=== PATIENT | male | born 1955 | race Two or more races ===

== ENCOUNTER 2018-11-11 16:30 | Emergency (ER) | payer MEDICARE, OTHER ==
[~2018-11-11] VITALS: Ht 170.2 cm; Wt 87.1 kg
--- NOTE | 2018-11-11 16:38 | NUR ---
ED Nurse Note: Pt [facility] from [facility] due to abnormal labs that were taken 2 days ago. According to EMS, BUN was abnormal. Pt is A + O x2. SELDOVIA. Hx of HTN, DM, carcinoma on the left arm. Pt denies having pain. Vincentian speaking only.
[2018-11-11 16:39] VITALS: BP 182/59
--- NOTE | 2018-11-11 16:44 | Emergency Room Report ---
History of Present Illness General Chief Complaint: Abnormal Labs Source: Patient Present Illness HPI Patient is a 62-year-old male brought in by from alf. BLS ambulance. Patient was reportedly sent in for increased BUN. Patient a prior history of end-stage renal disease and is normally dialyzed Monday and Monday.Patient's recent laboratory testing showed some improvement from prior. Patient had reportedly had dialysis yesterday. Patient has some prior history of end-stage renal disease and has a left upper extremity vascular access. Allergies: Coded Allergies: No Known Allergies (Unverified , 11/11/18) Patient History Reviewed Nursing Documentation: PMH: Agreed; PSxH: Agreed Review of Systems All Other Systems: negative except mentioned in HPI Physical Exam Vital Signs Date Time Temp Pulse Resp B/P (MAP) Pulse Ox O2 Delivery O2 Flow Rate FiO2 11/11/18 16:32 98.1 60 16 96 Room Air Sp02 EP Interpretation: reviewed, normal General Appearance: normal inspection, well appearing, no apparent distress, alert, GCS 15, Chronically Ill Head: atraumatic ENT: normal ENT inspection, hearing grossly normal, normal voice Neck: normal inspection, full range of motion, supple, no bony tend Respiratory: normal inspection, lungs clear, normal breath sounds, no respiratory distress, no retraction, no wheezing Cardiovascular #1: regular rate, rhythm, no edema, other - left upper extremity vascular access Gastrointestinal: normal inspection, normal bowel sounds, non tender, soft, no guarding, no hernia Genitourinary: no CVA tenderness Musculoskeletal: normal inspection, back normal, normal range of motion Neurologic: normal inspection, alert, responsive, speech normal Psychiatric: normal inspection, judgement/insight normal, mood/affect normal Skin: normal inspection, normal color, no rash Medical Decision Making Diagnostic Impression: Primary Impression: Abnormal laboratory test result ER Course Patient presented for abnormal lab values. Differential diagnosis include was not limited to hyperkalemia, uremia, fluid overload among others. Because of complexity of patient's case laboratory testing and imaging studies were ordered. Patient appears comfortable and in no acute distress. Patient states that he feels well and is unsure why he was sent to the hospital. Laboratory testing showed elevation of the patient's BUN consistent with his prior history of chronic renal failure. Patient be discharged back to his alf. He is to follow-up with his regular dialysis appointment. Labs Test 11/11/18 17:00 White Blood Count 4.3 K/UL (4.8-10.8) Red Blood Count 3.33 M/UL (4.70-6.10) Hemoglobin 10.3 G/DL (14.2-18.0) Hematocrit 31.2 % (42.0-52.0) Mean Corpuscular Volume 94 FL (80-99) Mean Corpuscular Hemoglobin 30.8 PG (27.0-31.0) Mean Corpuscular Hemoglobin Concent 32.8 G/DL (32.0-36.0) Red Cell Distribution Width 13.7 % (11.6-14.8) Platelet Count 87 K/UL (150-450) Mean Platelet Volume 7.4 FL (6.5-10.1) Neutrophils (%) (Auto) % (45.0-75.0) Lymphocytes (%) (Auto) % (20.0-45.0) Monocytes (%) (Auto) % (1.0-10.0) Eosinophils (%) (Auto) % (0.0-3.0) Basophils (%) (Auto) % (0.0-2.0) Sodium Level 140 MMOL/L (136-145) Potassium Level 4.8 MMOL/L (3.5-5.1) Chloride Level 102 MMOL/L (98-107) Carbon Dioxide Level 27 MMOL/L (21-32) Anion Gap 11 mmol/L (5-15) Blood Urea Nitrogen 56 mg/dL (7-18) Creatinine 10.1 MG/DL (0.55-1.30) Estimat Glomerular Filtration Rate 5.3 mL/min (>60) Glucose Level 239 MG/DL (74-106) Calcium Level 9.4 MG/DL (8.5-10.1) Total Bilirubin 0.5 MG/DL (0.2-1.0) Aspartate Amino Transf (AST/SGOT) 13 U/L (15-37) Alanine Aminotransferase (ALT/SGPT) 21 U/L (12-78) Alkaline Phosphatase 124 U/L (46-116) Total Protein 7.4 G/DL (6.4-8.2) Albumin 3.5 G/DL (3.4-5.0) Globulin 3.9 g/dL Albumin/Globulin Ratio 0.9 (1.0-2.7) EKG Diagnostic Results Rate: normal Rhythm: NSR ST Segments: no acute changes Last Vital Signs Date Time Temp Pulse Resp B/P (MAP) Pulse Ox O2 Delivery O2 Flow Rate FiO2 11/11/18 16:32 98.1 60 16 96 Room Air Status: improved Disposition: XFER SNF Condition: Stable Hilario Weir MD November 11, 2018 16:44
[2018-11-11] MEDS ORDERED: FOLGARD TABLET1 EAC1 PO (16:54)
[2018-11-11] MEDS ORDERED: GABAPENTIN100 MG ORAL (16:54)
[2018-11-11] MEDS ORDERED: VITAMIN B COMP1 EAC2 ORAL (16:54)
[2018-11-11] MEDS ORDERED: ATORVASTATIN CA20 MG ORAL (16:54)
[2018-11-11] MEDS ORDERED: LISINOPRIL10 MG ORAL (16:54)
[2018-11-11] MEDS ORDERED: STARLIX60 MG ORAL (16:54)
[2018-11-11] MEDS ORDERED: ASPIRIN81 MG ORAL (16:54)
[2018-11-11] MEDS ORDERED: HYDRALAZINE HC100 MG ORAL (16:54)
[2018-11-11] MEDS ORDERED: BISACODYL5 MG ORAL (16:54)
[2018-11-11] MEDS ORDERED: NEPHROVITE1 TAB ORAL (16:54)
[2018-11-11] MEDS ORDERED: DOXAZOSIN MESYLA8 MG ORAL (16:54)
[2018-11-11] MEDS ORDERED: RENAGEL800 MG ORAL (16:54)
[2018-11-11] MEDS ORDERED: TRADJENTA5 MG PO (16:54)
[2018-11-11] MEDS ORDERED: FOLIC ACID1 MG ORAL (16:54)
[2018-11-11] MEDS ORDERED: CALCIUM ACETAT668 MG PO (16:54)
[2018-11-11] MEDS ORDERED: MINOXIDIL2.5 MG PO (16:54)
[2018-11-11] MEDS ORDERED: DOCUSATE SODIU100 MG ORAL (16:54)
[2018-11-11] MEDS ORDERED: AMLODIPINE BESY10 MG ORAL (16:54)
[2018-11-11 17:10] LABS: HEMATOCRIT 31.2 % (42.0-52.0); HEMOGLOBIN 10.3 G/DL (14.2-18.0); MEAN CORPUSCULAR VOLUME 94 FL (80-99); PLATELET COUNT 87 K/UL (150-450); RED BLOOD COUNT 3.33 M/UL (4.70-6.10); RED CELL DISTRIBUTION WIDTH 13.7 % (11.6-14.8); WHITE BLOOD COUNT 4.3 K/UL (4.8-10.8)
[2018-11-11 17:48] LABS: ANION GAP 11 mmol/L (5-15); BLOOD UREA NITROGEN 56 mg/dL (7-18); CALCIUM 9.4 MG/DL (8.5-10.1); CARBON DIOXIDE 27 MMOL/L (21-32); CHLORIDE 102 MMOL/L (98-107); CREATININE 10.1 MG/DL (0.55-1.30); POTASSIUM 4.8 MMOL/L (3.5-5.1); SODIUM 140 MMOL/L (136-145)
[2018-11-11 17:52] LABS: ALANINE AMINOTRANSFERASE 21 U/L (12-78); ALBUMIN 3.5 G/DL (3.4-5.0); ALBUMIN/GLOBULIN RATIO 0.9 (1.0-2.7); ALKALINE PHOSPHATASE 124 U/L (46-116); ASPARTATE AMINO TRANSFERASE 13 U/L (15-37); BILIRUBIN,TOTAL 0.5 MG/DL (0.2-1.0)
[2018-11-11 18:32] VITALS: BP 170/55
--- NOTE | 2018-11-11 19:10 | NUR ---
HAND-OFF: Report given to STAN Valencia.
[2018-11-11 20:40] VITALS: BP 158/60
--- NOTE | 2018-11-11 20:40 | NUR ---
ED Nurse Note: Pt cleared by MD. Discharge paperwork provided. Report given to STAN Gan @ [facility]. VSS. Showing no signs of acute distress. [facility] to transport patient.
== END 2018-11-11 20:40 | disposition home or self-care (01) ==
LOC: EDBD 16:30 → EMR 16:56
DX: R79.89 Other specified abnormal findings of blood chemistry (principal); N18.6 End stage renal disease; Z99.2 Dependence on renal dialysis
CPT/HCPCS: 36415; 80053; 85025; 93005; 96374; 99284; J0360

== ENCOUNTER 2018-12-10 09:59 | Inpatient (IN) | payer MEDICARE, OTHER ==
[~2018-12-10] VITALS: Ht 167.1 cm; Wt 84.4 kg
[~2018-12-10 09:59] MED LIST: AMLODIPINE BESY10 MG ORAL; ASPIRIN81 MG ORAL; ATORVASTATIN CA20 MG ORAL; BISACODYL5 MG ORAL; CALCIUM ACETAT668 MG PO; DOCUSATE SODIU100 MG ORAL; DOXAZOSIN MESYLA8 MG ORAL; FOLGARD TABLET1 EAC1 PO; FOLIC ACID1 MG ORAL; GABAPENTIN100 MG ORAL; HYDRALAZINE HC100 MG ORAL; LISINOPRIL10 MG ORAL; MINOXIDIL2.5 MG PO; NEPHROVITE1 TAB ORAL; RENAGEL800 MG ORAL; STARLIX60 MG ORAL; TRADJENTA5 MG PO; VITAMIN B COMP1 EAC2 ORAL
[2018-12-10 10:05] VITALS: BP 129/54
--- NOTE | 2018-12-10 10:06 | NUR ---
ED Nurse Note: pt brought in to ER by jhonathan from [facility] due to missing dialysis on last Monday and elevated BUN and Creatine. pt aao x4 and ambulatory with FWW. skin clean and intact. pt, Khmer speaker and TANGIRNAQ, calm and cooperative. shunt present on Lt lower arm without complications. vss as documented.
--- NOTE | 2018-12-10 10:07 | NUR ---
ED Nurse Note: Rt toes ambulated. site clean and intact.
[2018-12-10] MEDS ORDERED: Ipratropium 0.02% Inh Soln 2.5ml UD HHN ONE (10:30)
[2018-12-10] MEDS ORDERED: Albuterol ud Inhalation HHN ONE (10:30)
--- NOTE | 2018-12-10 10:48 | NUR ---
ED Nurse Note: x-ray at bedside.
[2018-12-10 10:51] LABS: HEMOGLOBIN 10.4 G/DL (14.2-18.0); MEAN CORPUSCULAR VOLUME 94 FL (80-99); PLATELET COUNT 98 K/UL (150-450); RED BLOOD COUNT 3.41 M/UL (4.70-6.10); WHITE BLOOD COUNT 3.6 K/UL (4.8-10.8)
--- NOTE | 2018-12-10 10:58 | Diagnostic Imaging Report ---
Indication: Dyspnea Comparison: None A single view chest radiograph was obtained. Findings: Mild congestion demonstrated with prominent pulmonary vascularity, cephalized with cardiomegaly. Bones are slightly osteopenic. IMPRESSION: Suspected mild CHF. Correlate clinically
--- NOTE | 2018-12-10 11:02 | NUR ---
ED Nurse Note: breahting treatment being done at bedside.
[2018-12-10 11:03] LABS: ANION GAP 14 mmol/L (5-15); BLOOD UREA NITROGEN 96 mg/dL (7-18); CARBON DIOXIDE 20 MMOL/L (21-32); CHLORIDE 101 MMOL/L (98-107); CREATININE 16.8 MG/DL (0.55-1.30); POTASSIUM 5.3 MMOL/L (3.5-5.1); SODIUM 135 MMOL/L (136-145)
[2018-12-10 11:07] LABS: ALANINE AMINOTRANSFERASE 16 U/L (12-78); ALBUMIN 3.4 G/DL (3.4-5.0); ALBUMIN/GLOBULIN RATIO 0.9 (1.0-2.7); ALKALINE PHOSPHATASE 116 U/L (46-116); ASPARTATE AMINO TRANSFERASE 11 U/L (15-37); BILIRUBIN,TOTAL 0.5 MG/DL (0.2-1.0); CREATINE KINASE 305 U/L (26-308)
[2018-12-10] MEDS ORDERED: Heparin Sod 1000 units/ml 10ml IV PRN (12:16)
[2018-12-10 12:49] VITALS: BP 134/53
--- NOTE | 2018-12-10 12:53 | NUR ---
ED Nurse Note: Report given to STAN Marquez at ext [phone]. Pt to be transfered to [facility] per protocol.
--- NOTE | 2018-12-10 12:57 | NUR ---
NURSE NOTES: Called [facility], spoken to Sayra, informed pt has order for HD today 12/10/18. Awaiting confirmation
--- NOTE | 2018-12-10 13:30 | NUR ---
NURSE NOTES: received pt from ED, came on [place], fatigued, has right toes amputated and AV shunt with Bruit (+) at auscultation on left lower arm. IV access at RFA gauge 20. Placed in bed with bed alarm, call light within easy reach, siderails up x2. Obtained consent from patient for hemodialysis. Contacted [facility] for information on patient. Will continue to monitor patient.
--- NOTE | 2018-12-10 14:41 | Emergency Room Report ---
History of Present Illness General Chief Complaint: Abnormal Labs Source: Patient, Medical Record, EMS, PMD Present Illness HPI Patient has a history of renal failure and gets dialysis. He is usually dialyzed Monday. Patient unfortunately missed dialysis came here for further evaluation because of abnormal laboratory results. Patient's primary care physician is Dr. Michele Covington. No other complaints are noted. P patient is noted to be slightly short of breath. Complains of diffuse body ache. No other modifying factors. No other associated signs and symptoms. No other complaints were noted. Allergies: Coded Allergies: No Known Allergies (Unverified , 11/11/18) Patient History Past Medical History: DM, HTN, other - Basal cell carcinoma Reviewed Nursing Documentation: PMH: Agreed; PSxH: Agreed Nursing Documentation-PMH Past Medical History: No History, Except For Hx Hypertension: Yes - hyperlipidemia Hx Diabetes: Yes Hx Cancer: Yes - basal cell carcinoma Hx Dialysis: Yes - tue, sat. esrd Review of Systems All Other Systems: negative except mentioned in HPI Physical Exam Vital Signs Date Time Temp Pulse Resp B/P (MAP) Pulse Ox O2 Delivery O2 Flow Rate FiO2 12/10/18 10:00 98.2 56 16 129/54 (79) 91 Room Air 12/10/18 10:50 21 Sp02 EP Interpretation: reviewed, normal General Appearance: alert, mild distress Head: atraumatic Eyes: bilateral eye normal inspection ENT: normal ENT inspection, hearing grossly normal, normal voice Neck: normal inspection, full range of motion, supple, no bony tend Respiratory: crackles - Basilar Cardiovascular #1: regular rate, rhythm, no edema Gastrointestinal: normal inspection, normal bowel sounds, non tender, soft, no guarding, no hernia Genitourinary: no CVA tenderness Musculoskeletal: normal inspection, back normal, normal range of motion Neurologic: normal inspection, alert, responsive, speech normal Psychiatric: normal inspection, judgement/insight normal, anxious Skin: normal inspection, normal color, no rash Medical Decision Making Diagnostic Impression: Primary Impression: Renal failure Additional Impressions: Fluid overload Uremia ER Course Patient presents emergency department today complaining of shortness of breath. Differential diagnoses include acute pneumonia, CHF, acute coronary syndrome, pneumothorax, asthma, COPD flare, just to name a few. Given the severity of the patient's presentation I felt this is a highly complex patient. This patient required extensive workup. Patient's laboratory work-up shows uremia and hyperkalemia. Patient's EKG does show a questionable junctional rhythm versus AV block. Review of prior EKG from last visit shows unchanged. Chest x-ray shows pulmonary congestion. Given patient's presentation patient require admission. Patient will likely require dialysis. Case was discussed with Dr. Covington. Patient will be admitted for further treatment. Labs Test 12/10/18 10:45 White Blood Count 3.6 K/UL (4.8-10.8) Red Blood Count 3.41 M/UL (4.70-6.10) Hemoglobin 10.4 G/DL (14.2-18.0) Hematocrit 32.0 % (42.0-52.0) Mean Corpuscular Volume 94 FL (80-99) Mean Corpuscular Hemoglobin 30.4 PG (27.0-31.0) Mean Corpuscular Hemoglobin Concent 32.3 G/DL (32.0-36.0) Red Cell Distribution Width 14.0 % (11.6-14.8) Platelet Count 98 K/UL (150-450) Mean Platelet Volume 6.8 FL (6.5-10.1) Neutrophils (%) (Auto) % (45.0-75.0) Lymphocytes (%) (Auto) % (20.0-45.0) Monocytes (%) (Auto) % (1.0-10.0) Eosinophils (%) (Auto) % (0.0-3.0) Basophils (%) (Auto) % (0.0-2.0) Differential Total Cells Counted 100 Neutrophils % (Manual) 74 % (45-75) Lymphocytes % (Manual) 12 % (20-45) Monocytes % (Manual) 12 % (1-10) Eosinophils % (Manual) 2 % (0-3) Basophils % (Manual) 0 % (0-2) Band Neutrophils 0 % (0-8) Platelet Estimate Decreased Platelet Morphology Normal Hypochromasia 1+ Anisocytosis 1+ Sodium Level 135 MMOL/L (136-145) Potassium Level 5.3 MMOL/L (3.5-5.1) Chloride Level 101 MMOL/L (98-107) Carbon Dioxide Level 20 MMOL/L (21-32) Anion Gap 14 mmol/L (5-15) Blood Urea Nitrogen 96 mg/dL (7-18) Creatinine 16.8 MG/DL (0.55-1.30) Estimat Glomerular Filtration Rate 2.9 mL/min (>60) Glucose Level 81 MG/DL (74-106) Calcium Level 9.0 MG/DL (8.5-10.1) Total Bilirubin 0.5 MG/DL (0.2-1.0) Aspartate Amino Transf (AST/SGOT) 11 U/L (15-37) Alanine Aminotransferase (ALT/SGPT) 16 U/L (12-78) Alkaline Phosphatase 116 U/L (46-116) Total Creatine Kinase 305 U/L (26-308) Troponin I 0.027 ng/mL (0.000-0.056) Total Protein 7.4 G/DL (6.4-8.2) Albumin 3.4 G/DL (3.4-5.0) Globulin 4.0 g/dL Albumin/Globulin Ratio 0.9 (1.0-2.7) Lipase 85 U/L (73-393) EKG Diagnostic Results Rate: normal Rhythm: NSR ST Segments: no acute changes Other Impression Unchanged from last visit first-degree AV block versus junctional rhythm Rhythm Strip Diag. Results EP Interpretation: yes Rate: 50s Rhythm: no PVC's, no ectopy, other - Junctional rhythm Chest X-Ray Diagnostic Results Chest X-Ray Diagnostic Results : Chest X-Ray Ordered: Yes # of Views/Limited/Complete: 1 View EP Interpretation: No Interpretation: other - CHF Last Vital Signs Date Time Temp Pulse Resp B/P (MAP) Pulse Ox O2 Delivery O2 Flow Rate FiO2 12/10/18 12:56 98.2 68 20 134/53 100 Room Air 21 56 Status: improved Disposition: ADMITTED INPATIENT Condition: Serious Referrals: Gian Yates M.D. (PCP) Tyree Alas MD Dec 10, 2018 14:41
[2018-12-10 16:00] VITALS: BP 128/58
--- NOTE | 2018-12-10 17:30 | NUR ---
NURSE NOTES: HD has been finished, done by dialysis nurse mrs Erickson. !.5L out, BP 113/60, HR 60.
--- NOTE | 2018-12-10 19:50 | NUR ---
HAND-OFF: Report given to STAN Moe.
--- NOTE | 2018-12-10 19:55 | NUR ---
NURSE NOTES: Received a report from STAN Roper. Pt is in stable condition. He is asleep. On room air. No c/o pain/discomfort. IV site is on R forearm, patent and intact. AV shunt on L arm. Bed in lowest position. Bed alarm is on. Call light within reach. Will continue to monitor. Will call Dr. Tamayo for admission orders. Charge Nurse Madie and Nursing Commanding Officer Traffic Division Gabo made aware that pt still has no orders at this time.
[2018-12-10 20:00] VITALS: BP 132/48
[2018-12-10] MEDS: NovoLOG Insulin Flexpen SUBQ SCH (21:00)
[2018-12-10] MEDS: Heparin 5000 units/ml inj SUBQ SCH (21:00)
--- NOTE | 2018-12-10 22:00 | NUR ---
NURSE NOTES: Vanessa Thurston RN, served as assayer since the pt only speaks Zimbabwean. Vanessa PIERCE, explained to the pt that he needs to drink the apple juice because his blood sugar was 59. Pt was very uncooperative. He did not want to drink anything. He only asked for a sandwich. Gave a sandwich and 2 gelos. Will check for blood sugar later. Charge Nurse Madie made aware.
--- NOTE | 2018-12-10 22:05 | NUR ---
NURSE NOTES: Pt refused skin assessment and medication despite education provided. Charge Nurse Madie made aware.
--- NOTE | 2018-12-10 23:29 | NUR ---
NURSE NOTES: Notified Dr. Tamayo about the blood sugar of 59 at 2200 and 67 at 2300. He refused apple juices and dextrose. The pt is uncooperative. Charge Nurse Madie made aware.
[2018-12-11] VITALS: BP 128/54
[2018-12-11 04:00] VITALS: BP 131/51
[2018-12-11] MEDS: NovoLOG Insulin Flexpen SUBQ SCH ×4 (05:35→20:07)
--- NOTE | 2018-12-11 07:05 | NUR ---
HAND-OFF: Report given to STAN Bowser. Endorsed to STAN Bowser to assess the pt's skin if the pt let her.
--- NOTE | 2018-12-11 07:30 | NUR ---
NURSE NOTES: Received pt from STAN ENCARNACION. Pt is alert and orient x4. pt is in RA, No SOB or acute respiratory distress noted. Pt has intact iv access RFA 22g SL. all needs attended, bed is locked and is in the lowest position. call light within easy reach. will continue to monitor. Addendum: 12/11/18 at 0755 by Mague Diggs RN ERROR Received pt from STAN THOMAS.
[2018-12-11 08:00] VITALS: BP 142/56
[2018-12-11 08:13] LABS: HEMATOCRIT 30.9 % (42.0-52.0); MEAN CORPUSCULAR VOLUME 94 FL (80-99); PLATELET COUNT 83 K/UL (150-450); RED BLOOD COUNT 3.28 M/UL (4.70-6.10); RED CELL DISTRIBUTION WIDTH 13.7 % (11.6-14.8); WHITE BLOOD COUNT 3.8 K/UL (4.8-10.8)
[2018-12-11 08:27] LABS: ANION GAP 10 mmol/L (5-15); BLOOD UREA NITROGEN 67 mg/dL (7-18); CALCIUM 8.9 MG/DL (8.5-10.1); CARBON DIOXIDE 26 MMOL/L (21-32); CHLORIDE 101 MMOL/L (98-107); CREATININE 13.6 MG/DL (0.55-1.30); POTASSIUM 5.3 MMOL/L (3.5-5.1); SODIUM 137 MMOL/L (136-145)
[2018-12-11] MEDS ORDERED: Doxazosin 4mg tab ORAL SCH (09:00)
[2018-12-11] MEDS ORDERED: Heparin Sod 1000 units/ml 10ml IV PRN (09:00)
[2018-12-11] MEDS: Aspirin Baby 81mg ORAL SCH (09:47)
[2018-12-11] MEDS: Bisacodyl EC 5mg tab ORAL SCH (09:47)
[2018-12-11] MEDS: Docusate 100mg cap ORAL SCH (09:47)
[2018-12-11] MEDS: Lisinopril 10mg tab ORAL SCH (09:47)
[2018-12-11] MEDS: Nephrovite tab (Rena-Vite) ORAL SCH (09:47)
[2018-12-11] MEDS: Nateglinide 60mg tab ORAL SCH ×4 (09:47→18:20)
[2018-12-11] MEDS: Minoxidil 2.5mg tab ORAL SCH (09:48)
[2018-12-11] MEDS: Heparin 5000 units/ml inj SUBQ SCH ×2 (09:48→20:01)
--- NOTE | 2018-12-11 09:49 | NUR ---
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 SOB . UREMIA VS: BP 129/54, P 56, T 98.2, RR 20, SpO2 91 WBC 3.6, RBC 3.41, H&H 10.4/32.0, Plt.Count 98, Na 135, K 5.3, BUN 96, Cr 16.8 CXR: Suspected mild CHF IS:ATROVENT 500mcg HHN PROVENTIL 5mg HHN ADMITTED TO MED/SURG DCP: RETURN TO [facility])
--- NOTE | 2018-12-11 10:27 | NUR ---
NURSE NOTES: called [facility] spoke with CONST[facility] for HD tomorrow. will continue to monitor.
[2018-12-11 11:55] VITALS: BP 149/59
--- NOTE | 2018-12-11 15:03 | Cardiology Report ---
APPROVED REPORT EKG Measurement Heart [id number] atrial activity is difficult to see possible 1st degree avb vs Junctional rhythm Low voltage QRS Septal infarct, age undetermined Abnormal ECG
[2018-12-11 16:00] VITALS: BP 148/58
--- NOTE | 2018-12-11 16:15 | History and Physical Report ---
DATE OF ADMISSION: 12/10/2018 CHIEF COMPLAINT: Shortness of breath and abnormal laboratory results. HISTORY OF PRESENT ILLNESS: This is a patient on dialysis, who was sent from the retirement due to abnormal laboratory results. The patient is a very poor historian. PAST MEDICAL HISTORY: 1. End-stage renal failure due to diabetic nephropathy. 2. History of type 2 diabetes mellitus. 3. History of organic brain syndrome. 4. Hypertensive cardiovascular disease. 5. COPD. MEDICATIONS: Albuterol inhaler, amlodipine, baby aspirin, atorvastatin, Dulcolax, folic acid, doxazosin, Neurontin, subcutaneous heparin, Atrovent inhaler, lisinopril, minoxidil, Starlix, and Nephro-Leann. ALLERGIES: No known drug allergies. FAMILY HISTORY: Unable to obtain due to his mental status. SOCIAL HISTORY: Unable to obtain due to his mental status. REVIEW OF SYSTEMS: Unable to obtain due to his mental status. PHYSICAL EXAMINATION: GENERAL: This is an elderly male, who is in no acute distress. VITAL SIGNS: Blood pressure 142/56, pulse 65 and regular, respirations 18, and temperature 98.3. HEENT: Head is normocephalic and atraumatic. Pupils are equal, round, and react to light and accommodation consensually. NECK: Supple. Trachea midline. There was no lymphadenopathy or thyromegaly. LUNGS: Bilateral coarse rhonchi and wheezes. HEART: Regular rate and rhythm without rubs, murmurs, or gallops. ABDOMEN: Soft and nontender. Bowel sounds were active. EXTREMITIES: No clubbing. No cyanosis. He has pretibial erythema bilaterally. He has transmetatarsal amputation of right foot. He has left forearm AV fistula with thrill and bruit. LABORATORY AND ANCILLARY DATA: CBC shows hematocrit of 30.9, WBC 3.8. Sodium 137, potassium 5.3, BUN 67, and creatinine 13.6. Chest x-ray, mild congestion with prominent pulmonary vascularity. EKG not reported. ASSESSMENT: 1. CHF. 2. COPD exacerbation. 3. End-stage renal failure due to diabetic nephropathy. 4. History of type 2 diabetes mellitus. 5. History of organic brain syndrome. 6. Hypertensive cardiovascular disease. PLAN: 1. Hemodialysis Monday, Monday, Monday. 2. Continue retirement medications. 3. Respiratory treatment. Kate Tamayo M.D. DR: PHONG JOB#: [id number] CC:
--- NOTE | 2018-12-11 18:23 | NUR ---
NURSE NOTES: NATEGLINDINE didn't administer due to low BS. will continue to monitor. Addendum: 12/11/18 at 1825 by Mague Diggs RN and med wasted in med room.
--- NOTE | 2018-12-11 18:30 | NUR ---
NURSE NOTES: Called Dr LAST due to BS 59 waiting to call back. will continue to monitor.
--- NOTE | 2018-12-11 19:15 | NUR ---
NURSE NOTES: Received a report from STAN Bowser. Pt is in stable condition. Qatari speaker. On room air. No c/o pain/discomfort. IV site is on R forearm, patent and intact. AV shunt on L arm. Bed in lowest position. Bed alarm is on. Call light within reach. Will continue to monitor.
--- NOTE | 2018-12-11 19:30 | NUR ---
HAND-OFF: Report given to STAN THOMAS. Reported to F/U blood sugar with Dr LAST.
[2018-12-11 20:00] VITALS: BP 155/64
[2018-12-12] VITALS (7 sets, daily range): BP systolic 139–163; BP diastolic 54–81
[2018-12-12] MEDS: NovoLOG Insulin Flexpen SUBQ SCH ×4 (06:15→20:08)
[2018-12-12 07:00] LABS: HEMATOCRIT 30.8 % (42.0-52.0); MEAN CORPUSCULAR VOLUME 94 FL (80-99); PLATELET COUNT 86 K/UL (150-450); RED BLOOD COUNT 3.28 M/UL (4.70-6.10); RED CELL DISTRIBUTION WIDTH 13.6 % (11.6-14.8); WHITE BLOOD COUNT 3.6 K/UL (4.8-10.8)
[2018-12-12 07:14] LABS: ANION GAP 14 mmol/L (5-15); BLOOD UREA NITROGEN 78 mg/dL (7-18); CALCIUM 9.1 MG/DL (8.5-10.1); CARBON DIOXIDE 23 MMOL/L (21-32); CHLORIDE 101 MMOL/L (98-107); POTASSIUM 5.5 MMOL/L (3.5-5.1); SODIUM 138 MMOL/L (136-145)
--- NOTE | 2018-12-12 07:22 | NUR ---
HAND-OFF: Report given to STAN Bowser.
--- NOTE | 2018-12-12 07:30 | NUR ---
NURSE NOTES: Paged Dr. Tamayo about the blood sugar of 48 at 0543 and after giving dextrose, blood sugar now is 109. Charge Nurse Madie made aware. Mague PIERCE will follow up.
--- NOTE | 2018-12-12 07:30 | NUR ---
NURSE NOTES: Received pt from STAN THOMAS. Pt is alert and orient x4. pt is in RA, No SOB or acute respiratory distress noted. Pt has intact iv access RFA 22g SL. Pt has HD today, will F/U. all needs attended, bed is locked and is in the lowest position. call light within easy reach. will continue to monitor.
--- NOTE | 2018-12-12 08:08 | NUR ---
NURSE NOTES: Dr LAST visited pt and he is notified regarding low blood sugar and K, BUN CREA, no new order to RN. and Dr is aware about PLT 8.6, ordered to inject heparin if plt>[id number] if plt<[id number], noted and carried out. will continue to monitor.
--- NOTE | 2018-12-12 08:08 | Nephrology Progress Note ---
Assessment/Plan Plan Low BG - adjust Rx B wheezes - see orders. High BUN/ Creat - r/o malfunctioning AV access. Subjective Subjective Patient mute? Per RN BG's very low <50! Objective Objective Last 24 Hour Vital Signs Date Time Temp Pulse Resp B/P (MAP) Pulse Ox O2 Delivery O2 Flow Rate FiO2 12/12/18 04:00 98.0 88 18 153/54 (87) 96 88 12/12/18 00:00 98.4 81 18 145/60 (88) 99 81 12/11/18 21:00 Room Air 12/11/18 20:00 98.3 83 18 155/64 (94) 96 83 12/11/18 16:00 97.9 60 19 148/58 (88) 95 12/11/18 11:55 98.5 61 19 149/59 (89) 95 12/11/18 09:48 142/56 12/11/18 09:47 142/56 12/11/18 09:47 65 142/56 12/11/18 09:00 Room Air Intake and Output 12/11/18 12/12/18 19:00 07:00 Intake Total 1000 ml Balance 1000 ml Intake Oral 1000 ml # Voids 3 Laboratory Tests 12/12/18 06:20: White Blood Count 3.6L, Red Blood Count 3.28L, Hemoglobin 10.0L, Hematocrit 30.8L, Mean Corpuscular Volume 94, Mean Corpuscular Hemoglobin 30.4, Mean Corpuscular Hemoglobin Concent 32.4, Red Cell Distribution Width 13.6, Platelet Count 86L, Mean Platelet Volume 6.5, Neutrophils (%) (Auto) , Lymphocytes (%) ( Auto) , Monocytes (%) (Auto) , Eosinophils (%) (Auto) , Basophils (%) (Auto) , Neutrophils % (Manual) [Pending], Lymphocytes % (Manual) [Pending], Platelet Estimate [Pending], Platelet Morphology [Pending], Sodium Level 138, Potassium Level 5.5H, Chloride Level 101, Carbon Dioxide Level 23, Anion Gap 14, Blood Urea Nitrogen 78H, Creatinine 15.0H, Estimat Glomerular Filtration Rate 3.3, Glucose Level 116H, Calcium Level 9.1 Height (Feet): 5 Height (Inches): 5.80 Weight (Pounds): 192 Objective CV RR Lungs B wheezes Abs SNT. BS + E no CCE Kate Tamayo MD Dec 12, 2018 08:08
[2018-12-12] MEDS ORDERED: Albuterol/Ipratropium 3ml neb HHN PRN (08:15)
--- NOTE | 2018-12-12 09:15 | NUR ---
NURSE NOTES: pt is on HD now and pt asked to administer all meds together after HD. will continue to monitor.
--- NOTE | 2018-12-12 10:47 | NUR ---
NURSE NOTES: HD started at 0725 and finished now with 3L out put. will continue to monitor.
[2018-12-12] MEDS: Minoxidil 2.5mg tab ORAL SCH (11:19)
[2018-12-12] MEDS: Nephrovite tab (Rena-Vite) ORAL SCH (11:19)
[2018-12-12] MEDS: Docusate 100mg cap ORAL SCH (11:19)
[2018-12-12] MEDS: Bisacodyl EC 5mg tab ORAL SCH (11:19)
[2018-12-12] MEDS: Aspirin Baby 81mg ORAL SCH (11:20)
[2018-12-12] MEDS: Lisinopril 10mg tab ORAL SCH (11:20)
[2018-12-12] MEDS: Heparin 5000 units/ml inj SUBQ SCH ×2 (11:20→20:10)
--- NOTE | 2018-12-12 19:31 | NUR ---
HAND-OFF: Report given to STAN THOMAS.
--- NOTE | 2018-12-12 20:56 | NUR ---
NURSE NOTES: Called Dr. Rothman about the HR of the pt ranging 36-56. But he told me that he only visited the pt one time because he was covering for Dr. Lamb. Will call Dr. Lamb. Charge Nurse Renita made aware.
--- NOTE | 2018-12-12 21:00 | NUR ---
NURSE NOTES: Left a message to Dr. Lamb about the HR of the pt is ranging from 34-56. Awaiting for call back. Charge Nurse Renita made aware.
--- NOTE | 2018-12-12 22:31 | NUR ---
NURSE NOTES: Paged Dr. Tamayo to inform him that the pt's HR is ranging from 34-56. Charge Nurse Renita made aware.
[2018-12-13] VITALS: BP 144/48
[2018-12-13 04:00] VITALS: BP 131/59
--- NOTE | 2018-12-13 05:30 | NUR ---
NURSE NOTES: Pt's blood sugar is 68. Will give apple juice. Charge Nurse Renita made aware.
[2018-12-13] MEDS: NovoLOG Insulin Flexpen SUBQ SCH ×4 (05:59→21:00)
--- NOTE | 2018-12-13 06:00 | NUR ---
NURSE NOTES: After giving apple juice, pt's blood sugar is now 82. Charge Nurse Renita made aware.
--- NOTE | 2018-12-13 07:10 | NUR ---
HAND-OFF: Report given to Nicolette Magaña RN.
--- NOTE | 2018-12-13 07:51 | NUR ---
NURSE NOTES: Patient received sleeping in bed. No signs of SOB or pain observed. Urinal by the bedside. IV site on right arm saline locked, patent and intact. Call light placed within reach. Walker by the bedside. Will continue to monitor.
[2018-12-13 08:00] VITALS: BP 174/76
--- NOTE | 2018-12-13 08:45 | Nephrology Progress Note ---
Assessment/Plan Plan Low BG - adjust Rx. Off oral hypoglycemics. Effect may last up to 72 hours. B wheezes - see orders. High BUN/ Creat - r/o malfunctioning AV access. Subjective Subjective Patient mute? Per RN BG's are still very low <50! Objective Objective Last 24 Hour Vital Signs Date Time Temp Pulse Resp B/P (MAP) Pulse Ox O2 Delivery O2 Flow Rate FiO2 12/13/18 04:00 98.6 58 20 131/59 (83) 99 58 12/13/18 00:00 97.9 55 20 144/48 (80) 95 55 12/12/18 21:50 56 20 96 Room Air 21 12/12/18 21:00 Room Air 12/12/18 20:00 97.6 40 20 157/61 (93) 95 40 12/12/18 15:57 98.1 60 18 142/54 (83) 98 12/12/18 13:00 155/81 (105) 12/12/18 11:20 163/80 12/12/18 11:19 163/80 12/12/18 11:19 60 163/80 12/12/18 11:17 98.1 60 17 163/80 (107) 96 12/12/18 09:00 Room Air Intake and Output 12/12/18 12/13/18 19:00 07:00 Intake Total 840 ml Output Total 3000 ml Balance -2160 ml Intake Oral 840 ml Hemodialysis UF 3000 ml Height (Feet): 5 Height (Inches): 5.80 Weight (Pounds): 186 Objective CV RR Lungs B wheezes Abs SNT. BS + E no CCE aKte Tamayo MD Dec 13, 2018 08:45
[2018-12-13] MEDS: Heparin 5000 units/ml inj SUBQ SCH ×2 (09:00→21:00)
[2018-12-13] MEDS: Minoxidil 2.5mg tab ORAL SCH (09:00)
[2018-12-13] MEDS: Docusate 100mg cap ORAL SCH (09:00)
[2018-12-13] MEDS: Bisacodyl EC 5mg tab ORAL SCH (09:00)
[2018-12-13] MEDS: Nephrovite tab (Rena-Vite) ORAL SCH (09:00)
[2018-12-13] MEDS: Lisinopril 10mg tab ORAL SCH (09:00)
[2018-12-13] MEDS: Aspirin Baby 81mg ORAL SCH (09:00)
--- NOTE | 2018-12-13 11:51 | NUR ---
NURSE NOTES: RN spoke to Sayra from [facility] to schedule inpatient HD tomorrow per orders.
[2018-12-13 12:00] VITALS: BP 154/77
--- NOTE | 2018-12-13 12:20 | NUR ---
RD ASSESSMENT & RECOMMENDATIONS SEE CARE ACTIVITY FOR COMPLETE ASSESSMENT DAILY ESTIMATED NEEDS: Needs based on ESRD on HD 73.6kg adj 30-35 kcals/kg [id number] total kcals 1.2-1.8 g protein/kg 88-132 g total protein Fluid per MD, on HD NUTRITION DIAGNOSIS: Increased kcal and protein needs r/t ESRD as evidenced by pt on HD, elev Creat (15.0) (CURRENT DIET: RENAL/ [facility] MED) PO DIET RECOMMENDATIONS--> RENAL DIET ADDITIONAL RECOMMENDATIONS: 1) Obtain a calibrated bed scale 2) Add High pro snacks in b/w meals 3) Nepro x1 daily
[2018-12-13 16:00] VITALS: BP 163/59
--- NOTE | 2018-12-13 19:16 | NUR ---
HAND-OFF: Report given to Stephany RN.
--- NOTE | 2018-12-13 19:17 | NUR ---
NURSE NOTES: RECEIVED PT FROM STAN MEEKS. PT IS AWAKE, AAOX4, AMBULATING WITH WALKER IN THE HALLWAY. ON ROOM AIR, DENIES PAIN AND SOB. NO ACUTE DISTRESS NOTED. IV ON R FA 20G IS INTACT AND PATENT. WILL CONTINUE TO MONITOR.
[2018-12-13 20:00] VITALS: BP 164/60
--- NOTE | 2018-12-13 22:09 | NUR ---
NURSE NOTES: PATIENT'S BP IS TRENDING HIGH. LATEST BP WAS 164/60, AND HR 45. PATIENT IS ASYMPTOMATIC, AMBULATING IN HALLWAY. LEFT A VOICEMAIL WITH DR. SIFUENTES. WILL FOLLOW UP.
[2018-12-14] VITALS (7 sets, daily range): BP systolic 142–177; BP diastolic 57–101
[2018-12-14] MEDS ORDERED: Heparin Sod 1000 units/ml 10ml IV PRN (06:00)
[2018-12-14 06:19] LABS: HEMATOCRIT 31.6 % (42.0-52.0); HEMOGLOBIN 10.3 G/DL (14.2-18.0); MEAN CORPUSCULAR VOLUME 93 FL (80-99); PLATELET COUNT 92 K/UL (150-450); RED CELL DISTRIBUTION WIDTH 13.5 % (11.6-14.8); WHITE BLOOD COUNT 4.1 K/UL (4.8-10.8)
[2018-12-14] MEDS: NovoLOG Insulin Flexpen SUBQ SCH ×4 (06:30→20:22)
[2018-12-14 07:01] LABS: ALANINE AMINOTRANSFERASE 19 U/L (12-78); ALBUMIN 3.7 G/DL (3.4-5.0); ALKALINE PHOSPHATASE 125 U/L (46-116); ANION GAP 11 mmol/L (5-15); ASPARTATE AMINO TRANSFERASE 14 U/L (15-37); BILIRUBIN,TOTAL 0.6 MG/DL (0.2-1.0); BLOOD UREA NITROGEN 83 mg/dL (7-18); CALCIUM 9.1 MG/DL (8.5-10.1); CARBON DIOXIDE 27 MMOL/L (21-32); CHLORIDE 98 MMOL/L (98-107); CREATININE 14.6 MG/DL (0.55-1.30); PHOSPHORUS 7.5 MG/DL (2.5-4.9); SODIUM 136 MMOL/L (136-145)
[2018-12-14 07:03] LABS: POTASSIUM 6.4 MMOL/L (3.5-5.1)
--- NOTE | 2018-12-14 07:24 | NUR ---
NURSE NOTES: PATIENT'S POTASSIUM LEVEL AT 6.4. PAGED , ENDORSED TO STAN MEEKS DAYSHIFT TO FOLLOW UP.
--- NOTE | 2018-12-14 07:25 | NUR ---
HAND-OFF: Report given to STAN MEEKS.
--- NOTE | 2018-12-14 07:56 | NUR ---
NURSE NOTES: Patient received sitting up in ilan, watching television. Able to verbalize needs. Denies SOB. Patient's vital signs hypertensive and bradycardic. MD to be informed, waiting for call back. Urinal by the bedside. Hospital walker by the bedside. Call light placed within reach, will continue to monitor.
[2018-12-14] MEDS: Aspirin Baby 81mg ORAL SCH (08:20)
[2018-12-14] MEDS: Docusate 100mg cap ORAL SCH (08:20)
[2018-12-14] MEDS: Lisinopril 10mg tab ORAL SCH (08:21)
[2018-12-14] MEDS: Bisacodyl EC 5mg tab ORAL SCH (08:21)
[2018-12-14] MEDS: Minoxidil 2.5mg tab ORAL SCH (08:21)
[2018-12-14] MEDS: Nephrovite tab (Rena-Vite) ORAL SCH (08:21)
[2018-12-14] MEDS: Heparin 5000 units/ml inj SUBQ SCH ×2 (08:23→20:22)
--- NOTE | 2018-12-14 09:35 | NUR ---
CASE MANAGEMENT: REVIEW 12/14/2018 SI:ESRD. T 98.1 HR 56 RR 18 B/P 176/74 SATS 95% ON RA WBC 4.1 K 6.4 BUN 83 CR 14.6 GLU 65 CA 7.5 AST 14 ALP 125 IS:LIPITOR PO QHS NORVASC PO QD ASA PO QD COLACE PO QD LISINOPRIL PO QD INSULIN ASPART SUBQ AC/HS mED/SURG STATUS PLAN OF CARE: HD 12/14
--- NOTE | 2018-12-14 15:50 | Nephrology Progress Note ---
Assessment/Plan Plan Hypoglycemia -improving. BGs still borderline 80-90. K 6.4 on HD now B wheezes - see orders. High BUN/ Creat - r/o malfunctioning AV access. Subjective Subjective Patient mute? BG 80-90. C/o LBP. On HD now Objective Objective Last 24 Hour Vital Signs Date Time Temp Pulse Resp B/P (MAP) Pulse Ox O2 Delivery O2 Flow Rate FiO2 12/14/18 12:00 98.1 52 18 165/62 (96) 96 12/14/18 09:00 Room Air 12/14/18 08:21 176/74 12/14/18 08:21 176/74 12/14/18 08:05 55 15 96 Room Air 21 12/14/18 07:47 98.1 56 18 176/74 (108) 95 12/14/18 04:00 97.9 55 16 142/68 (92) 93 12/14/18 00:00 97.8 56 16 172/57 (95) 95 12/13/18 21:00 Room Air 12/13/18 20:00 97.3 45 16 164/60 (94) 100 12/13/18 16:00 98.1 45 21 163/59 (93) 96 45 Intake and Output 12/13/18 12/14/18 19:00 07:00 Intake Total 80 ml Balance 80 ml Intake Oral 80 ml Laboratory Tests 12/14/18 05:15: White Blood Count 4.1L, Red Blood Count 3.40L, Hemoglobin 10.3L, Hematocrit 31.6L, Mean Corpuscular Volume 93, Mean Corpuscular Hemoglobin 30.4, Mean Corpuscular Hemoglobin Concent 32.6, Red Cell Distribution Width 13.5, Platelet Count 92L, Mean Platelet Volume 7.3, Neutrophils (%) (Auto) , Lymphocytes (%) ( Auto) , Monocytes (%) (Auto) , Eosinophils (%) (Auto) , Basophils (%) (Auto) , Differential Total Cells Counted 100, Neutrophils % (Manual) 67, Lymphocytes % ( Manual) 26, Monocytes % (Manual) 3, Eosinophils % (Manual) 4H, Basophils % ( Manual) 0, Band Neutrophils 0, Platelet Estimate DecreasedL, Platelet Morphology Normal, Hypochromasia 1+, Sodium Level 136, Potassium Level 6.4*H, Chloride Level 98, Carbon Dioxide Level 27, Anion Gap 11, Blood Urea Nitrogen 83H, Creatinine 14.6H, Estimat Glomerular Filtration Rate 3.4, Glucose Level 65L , Calcium Level 9.1, Phosphorus Level 7.5H, Total Bilirubin 0.6, Aspartate Amino Transf (AST/SGOT) 14L, Alanine Aminotransferase (ALT/SGPT) 19, Alkaline Phosphatase 125H, Total Protein 7.3, Albumin 3.7, Globulin 3.6, Albumin/ Globulin Ratio 1.0 Height (Feet): 5 Height (Inches): 5.80 Weight (Pounds): 186 Objective BP high 160/90 CV RR Lungs B wheezes Abs SNT. BS + E no CCE Kate Tamayo MD Dec 14, 2018 15:50
[2018-12-14] MEDS ORDERED: HYDROcodone/Acetamin 5/325 tab ORAL PRN (16:00)
--- NOTE | 2018-12-14 19:24 | NUR ---
HAND-OFF: Report given to Christel PIERCE.
--- NOTE | 2018-12-14 20:00 | NUR ---
NURSE NOTES: Patient received ambulating around the hallway with walker. IV on right forearm intact. No complaints of pain at this time.
--- NOTE | 2018-12-14 20:30 | NUR ---
NURSE NOTES: Notified Dr. Tamayo regarding patient's BP of 177/63 HR of 53. Patient denies pain and denies any symptoms. No orders received from Dr. Tamayo at this time, just monitor patient as he just recently changed his scheduled HTN medications. Asked if he would PRN medication, Dr. Tamayo did not order. Will monitor patient.
[2018-12-15 06:03] LABS: HEMATOCRIT 30.7 % (42.0-52.0); MEAN CORPUSCULAR VOLUME 93 FL (80-99); PLATELET COUNT 88 K/UL (150-450); RED CELL DISTRIBUTION WIDTH 13.2 % (11.6-14.8); WHITE BLOOD COUNT 3.6 K/UL (4.8-10.8)
[2018-12-15 06:29] LABS: ANION GAP 10 mmol/L (5-15); BLOOD UREA NITROGEN 69 mg/dL (7-18); CALCIUM 9.3 MG/DL (8.5-10.1); CARBON DIOXIDE 29 MMOL/L (21-32); CHLORIDE 99 MMOL/L (98-107); CREATININE 12.8 MG/DL (0.55-1.30); POTASSIUM 5.5 MMOL/L (3.5-5.1); SODIUM 138 MMOL/L (136-145)
[2018-12-15] MEDS: NovoLOG Insulin Flexpen SUBQ SCH ×4 (06:30→21:00)
--- NOTE | 2018-12-15 07:30 | NUR ---
NURSE NOTES: Pt is alert and orient x4. pt is in RA, No SOB or acute respiratory distress noted. Pt has intact iv access RFA 22g SL. pt has AV shunt LA, dressing is intact. all needs attended, bed is locked and is in the lowest position. call light within easy reach. will continue to monitor.
--- NOTE | 2018-12-15 07:30 | NUR ---
HAND-OFF: Report given to Libertad DOYLE.
--- NOTE | 2018-12-15 07:48 | NUR ---
HAND-OFF: Report given to DUNIASOON.
[2018-12-15 08:00] VITALS: BP 167/76
[2018-12-15] MEDS: Bisacodyl EC 5mg tab ORAL SCH (08:56)
[2018-12-15] MEDS: Lisinopril 10mg tab ORAL SCH (08:56)
[2018-12-15] MEDS: Nephrovite tab (Rena-Vite) ORAL SCH (08:56)
[2018-12-15] MEDS: Docusate 100mg cap ORAL SCH (08:57)
[2018-12-15] MEDS: Minoxidil 2.5mg tab ORAL SCH (08:57)
[2018-12-15] MEDS: Aspirin Baby 81mg ORAL SCH (08:57)
[2018-12-15] MEDS: Heparin 5000 units/ml inj SUBQ SCH ×2 (09:03→21:18)
[2018-12-15 10:00] VITALS: BP 156/67
[2018-12-15 12:00] VITALS: BP 149/58
--- NOTE | 2018-12-15 12:13 | Nephrology Progress Note ---
Assessment/Plan Plan R/O hyperkalemia post OJ. Checking stat BMP. High BUN/ Creat - r/o malfunctioning AV access. Subjective Subjective Patient mute? Earlier was give a cup of OJ for BG 60! BG 80-90. C/o LBP. Objective Objective Last 24 Hour Vital Signs Date Time Temp Pulse Resp B/P (MAP) Pulse Ox O2 Delivery O2 Flow Rate FiO2 12/15/18 09:28 60 167/76 12/15/18 09:00 Room Air 12/15/18 08:57 167/76 12/15/18 08:56 167/76 12/15/18 08:53 60 20 95 Room Air 21 12/15/18 08:00 98.2 60 18 167/76 (106) 95 12/14/18 21:00 Room Air 12/14/18 20:27 56 20 94 Room Air 21 12/14/18 20:00 98.1 53 18 177/63 (101) 95 12/14/18 18:00 54 158/77 (104) 12/14/18 16:00 98.3 57 18 167/101 (123) 92 Intake and Output 12/14/18 12/15/18 19:00 07:00 Intake Total 360 ml Output Total 2000 ml Balance -1640 ml Intake Oral 360 ml Hemodialysis UF 2000 ml Laboratory Tests 12/15/18 05:20: White Blood Count 3.6L, Red Blood Count 3.30L, Hemoglobin 10.0L, Hematocrit 30.7L, Mean Corpuscular Volume 93, Mean Corpuscular Hemoglobin 30.3, Mean Corpuscular Hemoglobin Concent 32.6, Red Cell Distribution Width 13.2, Platelet Count 88L, Mean Platelet Volume 6.5, Neutrophils (%) (Auto) , Lymphocytes (%) ( Auto) , Monocytes (%) (Auto) , Eosinophils (%) (Auto) , Basophils (%) (Auto) , Differential Total Cells Counted 100, Neutrophils % (Manual) 69, Lymphocytes % ( Manual) 22, Monocytes % (Manual) 9, Eosinophils % (Manual) 0, Basophils % ( Manual) 0, Band Neutrophils 0, Platelet Estimate DecreasedL, Platelet Morphology Normal, Anisocytosis 1+, Sodium Level 138, Potassium Level 5.5H, Chloride Level 99, Carbon Dioxide Level 29, Anion Gap 10, Blood Urea Nitrogen 69H, Creatinine 12.8H, Estimat Glomerular Filtration Rate 4.0, Glucose Level 78 , Calcium Level 9.3 Height (Feet): 5 Height (Inches): 5.80 Weight (Pounds): 186 Objective BP high 160/90 CV RR Lungs B wheezes Abs SNT. BS + E no CCE Kate Tamayo MD Dec 15, 2018 12:13
--- NOTE | 2018-12-15 12:51 | NUR ---
NURSE NOTES: Dr LAST visited pt and he is aware about HTN no new order to RN, and is aware about BS, ordered STAT BMP, noted and carried out. will continue to monitor. Addendum: 12/15/18 at 1434 by Mague Diggs RN Dr LAST is aware about K and given stat BMP.
[2018-12-15 13:43] LABS: ANION GAP 11 mmol/L (5-15); BLOOD UREA NITROGEN 75 mg/dL (7-18); CALCIUM 9.3 MG/DL (8.5-10.1); CARBON DIOXIDE 27 MMOL/L (21-32); CHLORIDE 97 MMOL/L (98-107); CREATININE 12.9 MG/DL (0.55-1.30); POTASSIUM 5.7 MMOL/L (3.5-5.1); SODIUM 135 MMOL/L (136-145)
--- NOTE | 2018-12-15 14:35 | NUR ---
NURSE NOTES: Paged Dr LAST regarding K 5.7 and other lab results, waiting to call back. will continue to monitor.
[2018-12-15 16:00] VITALS: BP 164/64
--- NOTE | 2018-12-15 16:42 | NUR ---
NURSE NOTES: RN paged Dr LAST 5 TIMES DUE TO hr 53-56 and BP 164/64 and K 5.7, hasn't called back so RN called Dr GIL and left massage, waiting to call back. will continue to monitor.
--- NOTE | 2018-12-15 19:20 | NUR ---
HAND-OFF: Report given to STAN RIBERA. Endorsed to F/U for HR, BP, K with Dr LAST.
[2018-12-15 20:00] VITALS: BP 157/62
[2018-12-16] VITALS: BP 138/54
[2018-12-16 04:00] VITALS: BP 125/50
--- NOTE | 2018-12-16 05:25 | NUR ---
NURSE NOTES: Received report from STAN Bowser. A&Ox4. Bermudian speaking, patient deaf and has a hearing aid. On room air, no signs of distress or labored breathing. IV intact, patent, and saline locked. Bed in lowest position with call light in reach. Will continue with plan of care.
--- NOTE | 2018-12-16 05:30 | NUR ---
NURSE NOTES: Patient very hard of hearing with hearing aid, not deaf.
[2018-12-16] MEDS: NovoLOG Insulin Flexpen SUBQ SCH ×4 (06:26→20:54)
--- NOTE | 2018-12-16 07:28 | NUR ---
HAND-OFF: Report given to STAN Burton.
--- NOTE | 2018-12-16 08:08 | NUR ---
NURSE NOTES: Patient is awake and alert,respirations unlabored.Patient Left arm AV shunt with strong bruit and thrill.Patient ate breakfast,no complaints at this time.Call light within reach. Patient has walker at bedside.
[2018-12-16 08:11] VITALS: BP 154/61
[2018-12-16] MEDS: Bisacodyl EC 5mg tab ORAL SCH (09:26)
[2018-12-16] MEDS: Docusate 100mg cap ORAL SCH (09:26)
[2018-12-16] MEDS: Aspirin Baby 81mg ORAL SCH (09:26)
[2018-12-16] MEDS: Minoxidil 2.5mg tab ORAL SCH (09:27)
[2018-12-16] MEDS: Nephrovite tab (Rena-Vite) ORAL SCH (09:27)
[2018-12-16] MEDS: Lisinopril 10mg tab ORAL SCH (09:28)
[2018-12-16] MEDS: Heparin 5000 units/ml inj SUBQ SCH ×2 (09:29→20:20)
[2018-12-16 12:00] VITALS: BP 160/68
--- NOTE | 2018-12-16 14:59 | Nephrology Progress Note ---
Assessment/Plan Plan R/O hyperkalemia post OJ. Checking stat BMP. K was 5.7 yesterday. High BUN/ Creat - r/o malfunctioning AV access. Recheck BMP. Subjective Subjective Patient mute? Earlier was give a cup of OJ for BG 60! BG >100 C/o LBP. Objective Objective Last 24 Hour Vital Signs Date Time Temp Pulse Resp B/P (MAP) Pulse Ox O2 Delivery O2 Flow Rate FiO2 12/16/18 12:00 98.5 50 18 160/68 (98) 97 12/16/18 10:09 Room Air 12/16/18 09:39 60 149/51 12/16/18 09:28 149/51 12/16/18 09:27 149/51 12/16/18 08:11 98.9 55 18 154/61 (92) 92 12/16/18 04:00 98.1 60 18 125/50 (75) 96 12/16/18 00:00 96.5 50 18 138/54 (82) 95 12/15/18 21:00 Room Air 12/15/18 20:00 97.7 52 18 157/62 (93) 95 12/15/18 16:00 97.2 56 17 164/64 (97) 94 Intake and Output 12/15/18 12/16/18 18:59 06:59 Intake Total 118 ml 200 ml Balance 118 ml 200 ml Intake Oral 118 ml 200 ml # Voids 6 # Bowel Movements 1 Height (Feet): 5 Height (Inches): 5.80 Weight (Pounds): 186 Objective BP high 160/90 CV RR Lungs B wheezes Abs SNT. BS + E no CCE Kate Tamayo MD Dec 16, 2018 14:59
[2018-12-16 15:58] LABS: ANION GAP 13 mmol/L (5-15); BLOOD UREA NITROGEN 95 mg/dL (7-18); CALCIUM 9.7 MG/DL (8.5-10.1); CARBON DIOXIDE 26 MMOL/L (21-32); CHLORIDE 97 MMOL/L (98-107); CREATININE 14.8 MG/DL (0.55-1.30); POTASSIUM 5.7 MMOL/L (3.5-5.1); SODIUM 136 MMOL/L (136-145)
[2018-12-16 16:00] VITALS: BP 159/60
--- NOTE | 2018-12-16 17:10 | NUR ---
NURSE NOTES:[facility] Dialysis called regarding DR Tamayo Dialysis order for patient on 12/17/18,Call center [place] took message and will relay to the Dialysis Nurse.
--- NOTE | 2018-12-16 17:32 | NUR ---
NURSE NOTES: Waiting for call back from DR Marti regarding today chemistry lab results.
--- NOTE | 2018-12-16 18:53 | NUR ---
NURSE NOTES: DR Marti called back and aware of patient Potassium of 5.7,DR Marti state patient will receive dialysis tomorrow 12/17 and will follow up.patient resting,.Left AV shunt remains with strong bruit and thrill.Call light within reach.
--- NOTE | 2018-12-16 19:09 | NUR ---
HAND-OFF: Report given to WILLIAM PIERCE.
--- NOTE | 2018-12-16 19:10 | NUR ---
NURSE NOTES: Received a report from STAN Burton. Pt is in stable condition. AAOX4. Able to make needs known. On room air. No c/o pain/discomfort. IV site is on the right forearm, is patent and intact. AV shunt on the left forearm. Pt refused the R siderail to be up. Charge Nurse Madie made aware. Bed in lowest position. Bed alarm is on. Call light within reach. Will continue to monitor.
[2018-12-16 19:59] VITALS: BP 150/61
[2018-12-17] VITALS: BP 158/62
[2018-12-17 03:53] VITALS: BP 157/55
[2018-12-17] MEDS ORDERED: Heparin Sod 1000 units/ml 10ml IV PRN (06:00)
[2018-12-17] MEDS: NovoLOG Insulin Flexpen SUBQ SCH ×2 (06:30→11:30)
--- NOTE | 2018-12-17 07:10 | NUR ---
HAND-OFF: Report given to STAN Roper. STAN Roper will call the [facility] to confirm the hemodialysis scheduled for today.
[2018-12-17 08:00] VITALS: BP 180/63
--- NOTE | 2018-12-17 08:40 | NUR ---
NURSE NOTES: Patient missing at the bed side. Seen patient walk to restroom with the walker previously. Called hospital security and they haven't seen him going out. Looked around on the fl to look for him.
--- NOTE | 2018-12-17 09:09 | NUR ---
NURSE NOTES: Received patient on bed, awake and alert, but hard of hearing and Icelandic speaking. Pt in a stable condition. On room air. No complaint of pain or discomfort. IV on the R forearm, patent and intact. AV shunt on the left forearm. Pt refuses the R side rail to be up. Call light within reach. Will continue to monitor. Addendum: 12/17/18 at 0921 by WADE EVANS RN incorrect time Correct time is at 0745
--- NOTE | 2018-12-17 09:21 | NUR ---
NURSE NOTES: Patient came back to patient's room at 0920 by himself. Notified security.
--- NOTE | 2018-12-17 09:50 | NUR ---
NURSE NOTES: HD nurse Dre asked nurse not to give any am medication, to only give it after HD is done.
[2018-12-17 12:00] VITALS: BP 166/73
--- NOTE | 2018-12-17 12:17 | Nephrology Progress Note ---
Assessment/Plan Plan R/O hyperkalemia post OJ. Checking stat BMP. K was 5.7 yesterday. High BUN/ Creat - r/o malfunctioning AV access. Recheck BMP. Repeat K again 5.7. DC to SNF with new Med List Subjective Subjective Patient mute? Earlier was give a cup of OJ for BG 60! BG >100 C/o LBP. Objective Objective Last 24 Hour Vital Signs Date Time Temp Pulse Resp B/P (MAP) Pulse Ox O2 Delivery O2 Flow Rate FiO2 12/17/18 09:00 Room Air 12/17/18 08:00 98.1 56 18 180/63 (102) 96 12/17/18 03:53 98.4 57 18 157/55 (89) 95 12/17/18 00:00 98.8 57 19 158/62 (94) 95 12/16/18 21:00 Room Air 12/16/18 20:28 63 20 95 Room Air 21 12/16/18 19:59 97.2 54 17 150/61 (90) 94 12/16/18 16:00 97.5 55 19 159/60 (93) 97 Intake and Output 12/16/18 12/17/18 19:00 07:00 Intake Total 720 ml 120 ml Balance 720 ml 120 ml Intake Oral 720 ml 120 ml # Voids 2 Laboratory Tests 12/16/18 15:13: Sodium Level 136, Potassium Level 5.7H, Chloride Level 97L, Carbon Dioxide Level 26, Anion Gap 13, Blood Urea Nitrogen 95H, Creatinine 14.8H, Estimat Glomerular Filtration Rate 3.4, Glucose Level 148H, Calcium Level 9.7 Height (Feet): 5 Height (Inches): 5.80 Weight (Pounds): 186 Objective BP high 160/90 CV RR Lungs B wheezes Abs SNT. BS + E no CCE Kate Tamayo MD Dec 17, 2018 12:17
[2018-12-17] MEDS ORDERED: LIPITOR10 MG ORAL (12:21)
[2018-12-17] MEDS ORDERED: HEPARIN SO5000 UNIT2 SUBQ (12:21)
[2018-12-17] MEDS ORDERED: NORCO 5-325 TA1 EACH ORAL (12:21)
[2018-12-17] MEDS ORDERED: PROCARDIA XL30 MG ORAL (12:21)
[2018-12-17] MEDS ORDERED: LONITEN2.5 MG ORAL (12:21)
[2018-12-17] MEDS: Docusate 100mg cap ORAL SCH (14:07)
[2018-12-17] MEDS: Nephrovite tab (Rena-Vite) ORAL SCH (14:07)
[2018-12-17] MEDS: Bisacodyl EC 5mg tab ORAL SCH (14:08)
[2018-12-17] MEDS: Aspirin Baby 81mg ORAL SCH (14:08)
[2018-12-17] MEDS: Minoxidil 2.5mg tab ORAL SCH (14:09)
[2018-12-17] MEDS: Lisinopril 10mg tab ORAL SCH (14:09)
[2018-12-17] MEDS: Heparin 5000 units/ml inj SUBQ SCH (14:12)
--- NOTE | 2018-12-17 14:18 | NUR ---
DISCHARGE DISPOSITION: PLEASE READ PATIENT TO BE DISCHARGE TO [facility] [address] T: [phone]>> CALL [facility] FOR REPORT [facility] ETA 1600 SON BRIGITTE DORANTES MADE AWARE OF THE DC AND IS AGREEABLE
[2018-12-17 14:21] LABS: HEMATOCRIT 31.3 % (42.0-52.0); HEMOGLOBIN 10.4 G/DL (14.2-18.0); MEAN CORPUSCULAR VOLUME 91 FL (80-99); PLATELET COUNT 99 K/UL (150-450); RED BLOOD COUNT 3.45 M/UL (4.70-6.10); RED CELL DISTRIBUTION WIDTH 13.2 % (11.6-14.8); WHITE BLOOD COUNT 3.3 K/UL (4.8-10.8)
[2018-12-17 14:41] LABS: ANION GAP 9 mmol/L (5-15); BLOOD UREA NITROGEN 52 mg/dL (7-18); CALCIUM 9.5 MG/DL (8.5-10.1); CARBON DIOXIDE 31 MMOL/L (21-32); CHLORIDE 99 MMOL/L (98-107); CREATININE 8.3 MG/DL (0.55-1.30); POTASSIUM 3.5 MMOL/L (3.5-5.1); SODIUM 139 MMOL/L (136-145)
--- NOTE | 2018-12-17 15:07 | NUR ---
NURSE NOTES: patient is being prepared for discharge. Spoken to son Lio Chaudhari regadingthe discharge today. Also given report to [facility] MED[facility] DOYLE Elias.
[2018-12-17 15:30] VITALS: BP 187/68
[2018-12-17 15:57] VITALS: BP 187/68
--- NOTE | 2018-12-17 16:09 | NUR ---
NURSE NOTES: patient has been discharge to [facility], left by [facility]. IV access was taken off, no bleeding noted after site compression. Pt signed off belongings list and left with all his belongings, including right hearing aid and andrade that was stored at the safe. patient in stable condition, so pain or discomfort signs, has high blood pressure, given Nifedipine XL at the time of discharge.
--- NOTE | 2018-12-18 11:02 | Discharge Summary ---
Maricarmen Ibarra ORNAMENTAL IRON ERECTOR 12/18/18 1102: Discharge Summary Discharge Summary _ DATE OF ADMISSION: 12/10/2018 DATE OF DISCHARGE: 12/17/2018 DISCHARGED BY: Dr. Rubio REASON FOR ADMISSION: 63 years old male with history of end-stage renal disease due to diabetic nephropathy , on hemodialysis, hypertensive cardiovascular disease, COPD, diabetes mellitus type 2, history of organic brain syndrome, missed hemodialysis, presented to ED for evaluation due to shortness of breath and abnormal labs. Patient also complained of diffuse body aches. Upon evaluation patient was bradycardic with heart rate 56 pulse oximetry was 91% on room air. Laboratory work-up revealed no leukocytosis WBC 3.6, hemoglobin 10.4, hematocrit 32. Platelet count 98. Potassium 5.3. BUN 96, creatinine 16.8. Glucose 81. Stable LFT and lipase. Troponin - 0.027. EKG revealed normal sinus rhythm with first-degree A-V block. Chest x-ray showed findings consistent with CHF. Patient was admitted with diagnoses of fluid overload, uremia. HOSPITAL COURSE: Patient admitted and started on hemodialysis with close monitoring of volumes and cardiorenal parameters. Patient noted to have bilateral wheezing. Bronchodilator therapy via handheld nebulizing provided as needed. Supplemental oxygen provided as needed to keep pulse oximetry above 92%. Echocardiogram revealed preserved ejection fraction 55 to 60% with no evidence of wall motion abnormality. Mild left ventricular hypertrophy. No evidence of pericardial effusion. Moderately elevated left atrial pressure grade 2. Right ventricular systolic pressure of 42 consistent with mild pulmonary hypertension . Patient developed hypoglycemia, subsequent all hypoglycemia medications were stopped. Blood sugar was managed with sliding scale of insulin only on as-needed basis. Blood sugar stabilized. Hemodialysis with close monitoring of renal parameters electrolytes and vitamins provided while patient was in the hospital. Prior to discharge BUN 52 creatinine 8.3. Patient developed hyperkalemia despite hemodialysis, which was treated and resolved, Blood pressure was managed with minoxidil, Procardia and OCTAIVANO inhibitor , and remained stable. Antiplatelet therapy with aspirin and Lipitor continued. Pain management was addressed as needed. Hemoglobin and hematocrit were closely monitored with goal to keep hemoglobin above 7. Prior to discharge hemoglobin 10.4, hematocrit 31.3. Patient clinically stabilized and was ready for discharge to halfway facility for continuation of care. FINAL DIAGNOSES: Fluid overload CHF End-stage renal failure due to diabetic nephropathy Hypoglycemia -resolved COPD with acute exacerbation Hyperkalemia-resolved Diabetes mellitus type 2 Organic brain syndrome Hypertensive cardiovascular disease DISCHARGE MEDICATIONS: See Medication Reconciliation list. DISCHARGE INSTRUCTIONS: Patient was discharged to the halfway facility. Follow up with medical doctor at the facility. Patient I have been assigned to dictate discharge summary for this account. I was not involved in the patient's management. Kate Tamayo MD 12/19/18 1320: Discharge Summary Discharge Summary _ Patient: ALLEY DORANTES [facility] Rec #: [id number] Patient No.: [id number] Discharge Summary Discharge Summary _ DATE OF ADMISSION: 12/10/2018 DATE OF DISCHARGE: 12/17/2018 DISCHARGED BY: Dr. Tamayo REASON FOR ADMISSION: 63 years old male with history of end-stage renal disease due to diabetic nephropathy , on hemodialysis, hypertensive cardiovascular disease, COPD, diabetes mellitus type 2, history of organic brain syndrome, missed hemodialysis, presented to ED for evaluation due to shortness of breath and abnormal labs. Patient is mute! Upon evaluation patient was bradycardic with heart rate 56 pulse oximetry was 91% on room air. Laboratory work-up revealed no leukocytosis WBC 3.6, hemoglobin 10.4, hematocrit 32. Platelet count 98. Potassium 5.3. BUN 96, creatinine 16.8. Glucose 81. Stable LFT and lipase. Troponin - 0.027. EKG revealed normal sinus rhythm with first-degree A-V block. Chest x-ray showed findings consistent with CHF. He had high volume UF HD with 2-3 liters remove each HD. Patient was admitted with diagnoses of fluid overload, uremia. HOSPITAL COURSE: Patient admitted and started on hemodialysis with close monitoring of volumes and cardiorenal parameters. Patient noted to have bilateral wheezing. Bronchodilator therapy via handheld nebulizing provided as needed. Supplemental oxygen provided as needed to keep pulse oximetry above 92%. Echocardiogram revealed preserved ejection fraction 55 to 60% with no evidence of wall motion abnormality. Mild left ventricular hypertrophy. No evidence of pericardial effusion. Moderately elevated left atrial pressure grade 2. Right ventricular systolic pressure of 42 consistent with mild pulmonary hypertension . He had high volume UF HD with 2-3 liters remove each HD. Patient developed hypoglycemia, subsequent all hypoglycemia medications were stopped. Blood sugar was managed with sliding scale of insulin only on as-needed basis. Blood sugar stabilized. Hemodialysis with close monitoring of renal parameters electrolytes and vitamins provided while patient was in the hospital. Prior to discharge BUN 52 creatinine 8.3. Patient developed hyperkalemia despite hemodialysis, which was treated and resolved, Blood pressure was managed with minoxidil, Procardia and OCTAVIANO inhibitor , and remained stable. His antihypertensive medication regimen had to be modified. Antiplatelet therapy with aspirin and Lipitor continued. Pain management was addressed as needed. Hemoglobin and hematocrit were closely monitored with goal to keep hemoglobin above 7. Prior to discharge hemoglobin 10.4, hematocrit 31.3. Patient clinically stabilized and was ready for discharge to halfway facility for continuation of care. FINAL DIAGNOSES: Fluid overload CHF End-stage renal failure due to diabetic nephropathy Hypoglycemia -resolved COPD with acute exacerbation Hyperkalemia-resolved Diabetes mellitus type 2 Organic brain syndrome Hypertensive cardiovascular disease DISCHARGE MEDICATIONS: See Medication Reconciliation list. DISCHARGE INSTRUCTIONS: Patient was discharged to the halfway facility. Follow up with medical doctor at the facility. Patient I have been assigned to dictate discharge summary for this account. I was not involved in the patient's management. Maricarmen Ibarra NP Dec 18, 2018 11:02 Kate Tamayo MD <Electronically signed by Maricarmen Ibarra NP> 12/19/18 0815 Maricarmen Ibarar NP Dec 18, 2018 11:02 Kate Tamayo MD Dec 19, 2018 13:20
== END 2018-12-17 16:15 | DRG 640 ==
LOC: EDBD 09:59 → EMR 11:40 → 4E 11:46 → EDBEDREQ 12:09
PROC: 5A1D70Z Performance of Urinary Filtration, Intermittent, Less than 6 Hours Per Day (ICD-10-PCS; principal; 2018-12-10)
DX: E87.70 Fluid overload, unspecified (principal); N18.6 End stage renal disease; I13.2 Hypertensive heart and chronic kidney disease with heart failure and with stage 5 chronic kidney disease, or end stage renal disease; J44.1 Chronic obstructive pulmonary disease with (acute) exacerbation; E11.21 Type 2 diabetes mellitus with diabetic nephropathy; I50.9 Heart failure, unspecified; E11.649 Type 2 diabetes mellitus with hypoglycemia without coma; E11.22 Type 2 diabetes mellitus with diabetic chronic kidney disease; Z99.2 Dependence on renal dialysis; F09 Unspecified mental disorder due to known physiological condition; Z79.82 Long term (current) use of aspirin
CPT/HCPCS: 36415; 71045; 80048; 80053; 82550; 82962; 83690; 84100; 84484; 85007; 85025; 86706; 87081; 93005; 93306; 94640; 94664; 99285; J1815

== ENCOUNTER 2019-02-08 14:13 | Inpatient (IN) | payer MEDICARE, OTHER ==
[~2019-02-08] VITALS: Ht 172.7 cm; Wt 87.3 kg
[~2019-02-08 14:13] MED LIST changes: +HEPARIN SO5000 UNIT2 SUBQ; +LIPITOR10 MG ORAL; +LONITEN2.5 MG ORAL; +NORCO 5-325 TA1 EACH ORAL; +PROCARDIA XL30 MG ORAL
--- NOTE | 2019-02-08 14:21 | Emergency Room Report ---
History of Present Illness General Chief Complaint: Anemia Source: Patient Present Illness HPI 63-year-old male history of hypertension hyperlipidemia, dialysis patient, presents with generalized weakness, patient found to be anemic x1 day no aggravating or alleviating factors, no chest pain or shortness of breath, severity mild, no nausea no abdominal pain patient presents for blood transfusion Allergies: Coded Allergies: No Known Allergies (Unverified , 02/08/19) Patient History Past Medical History: see triage record Reviewed Nursing Documentation: PMH: Agreed; PSxH: Agreed Nursing Documentation-PMH Hx Cardiac Problems: Yes - hyperkalemia, anemia Hx Hypertension: Yes - hyperlipidemia Hx Diabetes: Yes Hx Cancer: Yes - basal cell carcinoma of skinLUE incl shoulder Hx Gastrointestinal Problems: No Hx Dialysis: Yes - tue, Thurs, sat. esrd Hx Neurological Problems: No Review of Systems Constitutional: Reports: weakness All Other Systems: negative except mentioned in HPI Physical Exam Last 24 Hour Vital Signs Date Time Temp Pulse Resp B/P (MAP) Pulse Ox O2 Delivery O2 Flow Rate FiO2 02/08/19 17:09 203/61 02/08/19 15:56 56 222/72 02/08/19 15:25 56 214/64 02/08/19 14:43 121 18 Room Air 02/08/19 14:42 97.5 121 18 208/74 93 Room Air 02/08/19 14:17 97.5 60 18 208/74 (118) 93 Room Air Sp02 EP Interpretation: reviewed, normal General Appearance: well appearing, no apparent distress, alert Head: normocephalic, atraumatic Eyes: bilateral eye PERRL, bilateral eye EOMI ENT: uvula midline, moist mucus membranes Neck: supple, thyroid normal, supple/symm/no masses Respiratory: lungs clear, no respiratory distress, no retraction, no accessory muscle use Cardiovascular #1: normal peripheral pulses, regular rate, rhythm, no edema, no gallop, no murmur Gastrointestinal: non tender, soft, no guarding, no rebound Musculoskeletal: normal inspection Neurologic: alert, oriented x3 Psychiatric: mood/affect normal Skin: no rash, warm/dry Medical Decision Making Diagnostic Impression: Primary Impression: Signs and symptoms of anemia ER Course 63-year-old male presents with symptomatic anemia, will start blood transfusion , patient admitted hemoglobin is normally in the 10s Patient admitted to Dr. Parker Laboratory Tests Test 02/08/19 14:30 White Blood Count 4.6 K/UL (4.8-10.8) L Red Blood Count 2.87 M/UL (4.70-6.10) L Hemoglobin 8.9 G/DL (14.2-18.0) L Hematocrit 27.4 % (42.0-52.0) L Mean Corpuscular Volume 96 FL (80-99) Mean Corpuscular Hemoglobin 30.9 PG (27.0-31.0) Mean Corpuscular Hemoglobin Concent 32.3 G/DL (32.0-36.0) Red Cell Distribution Width 15.5 % (11.6-14.8) H Platelet Count 138 K/UL (150-450) L Mean Platelet Volume 6.4 FL (6.5-10.1) L Neutrophils (%) (Auto) 76.5 % (45.0-75.0) H Lymphocytes (%) (Auto) 13.9 % (20.0-45.0) L Monocytes (%) (Auto) 6.4 % (1.0-10.0) Eosinophils (%) (Auto) 2.0 % (0.0-3.0) Basophils (%) (Auto) 1.1 % (0.0-2.0) Prothrombin Time 11.4 SEC (9.30-11.50) Prothrombin Time INR 1.1 (0.9-1.1) PTT 28 SEC (23-33) Sodium Level 139 MMOL/L (136-145) Potassium Level 4.8 MMOL/L (3.5-5.1) Chloride Level 106 MMOL/L (98-107) Carbon Dioxide Level 23 MMOL/L (21-32) Anion Gap 10 mmol/L (5-15) Blood Urea Nitrogen 78 mg/dL (7-18) H Creatinine 12.8 MG/DL (0.55-1.30) H Estimate Glomerular Filtration Rate 4.0 mL/min (>60) Glucose Level 258 MG/DL (74-106) H Calcium Level 9.1 MG/DL (8.5-10.1) Total Bilirubin 0.5 MG/DL (0.2-1.0) Aspartate Amino Transferase (AST) 10 U/L (15-37) L Alanine Aminotransferase (ALT) 19 U/L (12-78) Alkaline Phosphatase 130 U/L (46-116) H Total Protein 7.5 G/DL (6.4-8.2) Albumin 3.6 G/DL (3.4-5.0) Globulin 3.9 g/dL Albumin/Globulin Ratio 0.9 (1.0-2.7) L Disposition: ADMITTED INPATIENT Condition: Stable Babar Lion MD Feb 08, 2019 14:21
--- NOTE | 2019-02-08 14:30 | NUR ---
ED Nurse Note: Patient brought in to ER from [facility] by ambulance due to low Hgb at Dialysis center yesterday around 7.6. pt aao x4 and ambulatory with assist. skin clean and intact. calm and cooperative. severely impaired vision and hearing noted. pt is in gown and on environmental monitoring specialist. no acute distress noted. pt gets dialysis on , , Mon. last dialysis was yesterday. high bp noticed. will monitor continuously.
[2019-02-08 14:42] VITALS: BP 208/74
--- NOTE | 2019-02-08 15:00 | NUR ---
ED Nurse Note: skin clean and intact. Rt 5 toes were amputated and the site is clean.
[2019-02-08 15:15] LABS: ANION GAP 10 mmol/L (5-15); BLOOD UREA NITROGEN 78 mg/dL (7-18); CALCIUM 9.1 MG/DL (8.5-10.1); CARBON DIOXIDE 23 MMOL/L (21-32); CHLORIDE 106 MMOL/L (98-107); CREATININE 12.8 MG/DL (0.55-1.30); POTASSIUM 4.8 MMOL/L (3.5-5.1); SODIUM 139 MMOL/L (136-145)
[2019-02-08 15:19] LABS: BASOPHILS % (AUTO) 1.1 % (0.0-2.0); HEMATOCRIT 27.4 % (42.0-52.0); HEMOGLOBIN 8.9 G/DL (14.2-18.0); LYMPHOCYTES % (AUTO) 13.9 % (20.0-45.0); MEAN CORPUSCULAR VOLUME 96 FL (80-99); MONOCYTES % (AUTO) 6.4 % (1.0-10.0); NEUTROPHILS % (AUTO) 76.5 % (45.0-75.0); PLATELET COUNT 138 K/UL (150-450); RED BLOOD COUNT 2.87 M/UL (4.70-6.10); RED CELL DISTRIBUTION WIDTH 15.5 % (11.6-14.8); WHITE BLOOD COUNT 4.6 K/UL (4.8-10.8)
[2019-02-08 15:20] LABS: INR 1.1 (0.9-1.1)
[2019-02-08 15:21] LABS: ALANINE AMINOTRANSFERASE 19 U/L (12-78); ALBUMIN 3.6 G/DL (3.4-5.0); ALBUMIN/GLOBULIN RATIO 0.9 (1.0-2.7); ALKALINE PHOSPHATASE 130 U/L (46-116); ASPARTATE AMINO TRANSFERASE 10 U/L (15-37); BILIRUBIN,TOTAL 0.5 MG/DL (0.2-1.0)
--- NOTE | 2019-02-08 15:25 | NUR ---
ED Nurse Note: BP level reported to ERMD 214/64.
--- NOTE | 2019-02-08 15:51 | NUR ---
ED Nurse Note: BP rechecked 222/72. ALONDRAD made aware.
[2019-02-08] MEDS ORDERED: Labetalol 5mg/ml 20ml vial IV ONE (16:00)
--- NOTE | 2019-02-08 16:55 | NUR ---
Note sharifa in EDM - 02/08/19 at 1658 by [email or web address] ED Nurse Note: pt left unit with 1 trace evidence technician in stable condition.
--- NOTE | 2019-02-08 17:53 | NUR ---
ED Nurse Note: per ERMD pt is asymptomtic for high blood pressure and low heart rate and they are acceptable range. 52/min and 175/57. pt is ok to be transferred prior to blood transfusion. blood is not ready from blood bank. consent will be sent to med surge unit.
--- NOTE | 2019-02-08 18:07 | NUR ---
NURSE NOTES: received report from STAN Fragoso,ER. patient will be admitted to [facility] under Elena Dixon.
--- NOTE | 2019-02-08 18:07 | NUR ---
ED Nurse Note: Report given to STAN Cardenas.
--- NOTE | 2019-02-08 18:13 | NUR ---
ED Nurse Note: pt left unit with 1 radiologic technologist mammogram in stable condition.
[2019-02-08] MEDS ORDERED: TRADJENTA5 MG PO (18:14)
[2019-02-08] MEDS ORDERED: LONITEN2.5 MG PO (18:14)
[2019-02-08] MEDS ORDERED: LISINOPRIL5 MG ORAL (18:14)
[2019-02-08] MEDS ORDERED: ADALAT20 MG ORAL (18:14)
--- NOTE | 2019-02-08 18:25 | NUR ---
NURSE NOTES: patient admitted to room 420-[address] Elena teran. alert. oriented. verbally responsive in [place]. no respiratory distress noted. room air. no c/o pain at this time. IV on RAC 20g. intact. LT lower arm av shunt for HD. positive thrill and bruit. skin intact. all rt foot toes amputated. bed in the lowest position. call light within reach. alarm on. will continue to provide plan of care.
--- NOTE | 2019-02-08 18:58 | NUR ---
NURSE NOTES: VS. bp 190/79. HR 58. RR 20, T980.0, 98% room air. asymptomatic. patient received Procardia 60mg. labetarol 20mg. hydralizine. for HTN.
--- NOTE | 2019-02-08 19:19 | NUR ---
CASE MANAGEMENT: REVIEW 63Y/M BIBA FROM [facility] CC: ABNORMAL LABS HGB 7.3 SI: ANEMIA . ESRD ON HD TTS T 97.5 HR 121 RR 18 BP 208/74 SAT 93% ROOM AIR H/H 8.9/27.4 BUN 78 CR 12.8 IS: PROCARDIA XL X1 LABETALOL IV X1 HYDRALAZINE IV X1 PRBC 1 UNIT X1 PATIENT ADMITTED TO MED/SURG UNIT 02/08/2019 DCP: PATIENT IS FROM [facility]
--- NOTE | 2019-02-08 19:27 | NUR ---
HAND-OFF: Report given to STAN Gill.
--- NOTE | 2019-02-08 19:30 | NUR ---
NURSE NOTES: Pt received in bed, head of bed elevated, speaks little Canadian, Tristanian speaking, able to make needs known, fistula left forearm, no c/o pain or signs of distress, will contact Dr. Parker for admitting orders.
--- NOTE | 2019-02-08 19:55 | NUR ---
NURSE NOTES: Received admitting orders from Dr. Parker, Dr. Montenegro Saxophone Assembler on the case
[2019-02-08 20:00] VITALS: BP 182/67
[2019-02-08] MEDS ORDERED: HYDROcodone/Acetamin 5/325 tab ORAL PRN (21:30)
[2019-02-08] MEDS: NovoLOG Insulin Flexpen SUBQ SCH ×2 (22:30→22:48)
[2019-02-08] MEDS: HydrALAZINE 50mg tab ORAL SCH (22:31)
[2019-02-08] MEDS: Epoetin Alfa-EPBX(ESRD on dialysis)4000 units/ml vial SUBQ SCH (22:32)
[2019-02-08] MEDS: Iron Sucrose 100 MG in NS 55 ML IV SCH (22:38)
[2019-02-09] VITALS: BP 136/62
--- NOTE | 2019-02-09 00:39 | NUR ---
NURSE NOTES: Venofer given to patient. H/H q12hrs to be started, spoke with Iam from the lab.
--- NOTE | 2019-02-09 00:56 | NUR ---
NURSE NOTES: Received report from STAN Gill. Patient is in stable condition and currently in bed sleeping. Patient is on room air with no signs of distress. IV is intact. Fistula in left forearm. Bed is locked and in lowest position with call light in reach. Will continue to monitor the patient and follow plan of care as ordered.
[2019-02-09 00:59] LABS: BASOPHILS % (AUTO) 0.5 % (0.0-2.0); HEMATOCRIT 25.5 % (42.0-52.0); HEMOGLOBIN 8.2 G/DL (14.2-18.0); LYMPHOCYTES % (AUTO) 13.5 % (20.0-45.0); MEAN CORPUSCULAR VOLUME 97 FL (80-99); MONOCYTES % (AUTO) 6.4 % (1.0-10.0); NEUTROPHILS % (AUTO) 76.6 % (45.0-75.0); PLATELET COUNT 122 K/UL (150-450); RED BLOOD COUNT 2.63 M/UL (4.70-6.10); RED CELL DISTRIBUTION WIDTH 16.1 % (11.6-14.8)
[2019-02-09 01:27] LABS: ANION GAP 13 mmol/L (5-15); BLOOD UREA NITROGEN 82 mg/dL (7-18); CALCIUM 9.2 MG/DL (8.5-10.1); CARBON DIOXIDE 20 MMOL/L (21-32); CHLORIDE 106 MMOL/L (98-107); CREATININE 13.4 MG/DL (0.55-1.30); POTASSIUM 4.7 MMOL/L (3.5-5.1); SODIUM 139 MMOL/L (136-145)
--- NOTE | 2019-02-09 03:21 | NUR ---
NURSE NOTES: Called [facility] to confirm today's dialysis appointment. Left a message with the boiling tub operator. Awaiting callback from on-call nurse.
[2019-02-09 04:00] VITALS: BP 131/49
[2019-02-09] MEDS: HydrALAZINE 50mg tab ORAL SCH ×3 (06:12→21:29)
[2019-02-09] MEDS: Calcium Acetate 667mg Tab ORAL SCH ×3 (06:12→17:56)
[2019-02-09] MEDS: NovoLOG Insulin Flexpen SUBQ SCH ×4 (06:16→20:50)
[2019-02-09] MEDS ORDERED: Heparin Sod 1000 units/ml 10ml IV PRN (07:00)
--- NOTE | 2019-02-09 07:59 | NUR ---
HAND-OFF: Report given to STAN Martinez.
[2019-02-09 08:00] VITALS: BP 142/57
--- NOTE | 2019-02-09 08:28 | NUR ---
NURSE NOTES: Patient is alert and oriented. Patient is Hungarian speaking. Patient is dressed in own clothes. Patient says he wants to go home. RN explained to patient that he will have hemodialysis today. Patient expressing resistance. Will continue to monitor.
[2019-02-09] MEDS: NIFEdipine 10mg cap ORAL SCH (09:00)
[2019-02-09] MEDS: Lisinopril 2.5mg tab ORAL SCH (09:00)
[2019-02-09] MEDS: Doxazosin 4mg tab ORAL SCH (09:00)
[2019-02-09] MEDS: Bisacodyl EC 5mg tab ORAL SCH (09:35)
[2019-02-09] MEDS: Nephrovite tab (Rena-Vite) ORAL SCH (09:36)
[2019-02-09] MEDS: Aspirin Baby 81mg ORAL SCH (09:36)
[2019-02-09] MEDS: Nateglinide 60mg tab ORAL SCH ×3 (09:36→17:56)
[2019-02-09] MEDS: Docusate 100mg cap ORAL SCH (09:36)
[2019-02-09] MEDS: Lomotil 2.5mg tab ORAL SCH (09:36)
[2019-02-09 12:00] VITALS: BP 141/53
--- NOTE | 2019-02-09 12:45 | History & Physical ---
History and Physical History & Physicial seen and examined. Full Dictation completed on 1243 hours Peter Parker MD Feb 09, 2019 12:45
--- NOTE | 2019-02-09 12:46 | General Progress Note ---
Assessment/Plan Assessment/Plan: Full Dictaion in progress A/P: 1- Hypertensive emergency 2- Acute anemia 3- Diabetis 4- ESRD HD management per Dr Tamayo Will optimize BP medication Subjective Allergies: Coded Allergies: No Known Allergies (Unverified , 02/08/19) Objective Last 24 Hour Vital Signs Date Time Temp Pulse Resp B/P (MAP) Pulse Ox O2 Delivery O2 Flow Rate FiO2 02/09/19 08:30 Room Air 02/09/19 08:00 98.2 59 18 142/57 (85) 96 02/09/19 06:12 131/49 02/09/19 04:00 97.5 56 19 131/49 (76) 96 56 02/09/19 00:00 97.8 98 19 136/62 (86) 96 98 02/08/19 22:31 165/57 02/08/19 21:00 Room Air 02/08/19 20:00 97.9 54 19 182/67 (105) 95 54 02/08/19 18:41 Room Air 02/08/19 18:10 97.5 57 18 171/68 99 Room Air 02/08/19 17:09 203/61 02/08/19 15:56 56 222/72 02/08/19 15:25 56 214/64 02/08/19 14:43 121 18 Room Air 02/08/19 14:42 97.5 121 18 208/74 93 Room Air 02/08/19 14:17 97.5 60 18 208/74 (118) 93 Room Air Intake and Output 02/08/19 02/09/19 18:59 06:59 Intake Total 0 ml 0 ml Balance 0 ml 0 ml Intake Oral 0 ml 0 ml # Voids 2 # Bowel Movements 1 1 Laboratory Tests 02/08/19 14:30: White Blood Count 4.6L, Red Blood Count 2.87L, Hemoglobin 8.9L, Hematocrit 27.4L , Mean Corpuscular Volume 96, Mean Corpuscular Hemoglobin 30.9, Mean Corpuscular Hemoglobin Concent 32.3, Red Cell Distribution Width 15.5H, Platelet Count 138L, Mean Platelet Volume 6.4L, Neutrophils (%) (Auto) 76.5H, Lymphocytes (%) (Auto) 13.9L, Monocytes (%) (Auto) 6.4, Eosinophils (%) (Auto) 2.0, Basophils (%) (Auto) 1.1, Prothrombin Time 11.4, Prothromb Time International Ratio 1.1, Activated Partial Thromboplast Time 28, Sodium Level 139, Potassium Level 4.8, Chloride Level 106, Carbon Dioxide Level 23, Anion Gap 10, Blood Urea Nitrogen 78H, Creatinine 12.8H, Estimat Glomerular Filtration Rate 4.0, Glucose Level 258H, Calcium Level 9.1, Total Bilirubin 0.5 , Aspartate Amino Transf (AST/SGOT) 10L, Alanine Aminotransferase (ALT/SGPT) 19 , Alkaline Phosphatase 130H, Total Protein 7.5, Albumin 3.6, Globulin 3.9, Albumin/Globulin Ratio 0.9L 02/09/19 00:50: White Blood Count 6.0, Red Blood Count 2.63L, Hemoglobin 8.2L, Hematocrit 25.5L , Mean Corpuscular Volume 97, Mean Corpuscular Hemoglobin 31.1H, Mean Corpuscular Hemoglobin Concent 32.0, Red Cell Distribution Width 16.1H, Platelet Count 122L, Mean Platelet Volume 5.2L, Neutrophils (%) (Auto) 76.6H, Lymphocytes (%) (Auto) 13.5L, Monocytes (%) (Auto) 6.4, Eosinophils (%) (Auto) 3.0, Basophils (%) (Auto) 0.5, Sodium Level 139, Potassium Level 4.7, Chloride Level 106, Carbon Dioxide Level 20L, Anion Gap 13, Blood Urea Nitrogen 82H, Creatinine 13.4H, Estimat Glomerular Filtration Rate 3.8, Glucose Level 183H, Calcium Level 9.2 02/09/19 12:30: White Blood Count [Pending], Red Blood Count [Pending], Hemoglobin [Pending], Hematocrit [Pending], Mean Corpuscular Volume [Pending], Mean Corpuscular Hemoglobin [Pending], Mean Corpuscular Hemoglobin Concent [Pending], Red Cell Distribution Width [Pending], Platelet Count [Pending], Mean Platelet Volume [ Pending], Neutrophils (%) (Auto) [Pending], Lymphocytes (%) (Auto) [Pending], Monocytes (%) (Auto) [Pending], Eosinophils (%) (Auto) [Pending], Basophils (%) (Auto) [Pending], Hepatitis B Surface Antigen [Pending] Height (Feet): 5 Height (Inches): 8.00 Weight (Pounds): 180 Peter Parker MD Feb 09, 2019 12:46
[2019-02-09 13:06] LABS: BASOPHILS % (AUTO) 1.2 % (0.0-2.0); EOSINOPHILS % (AUTO) 2.2 % (0.0-3.0); HEMATOCRIT 25.9 % (42.0-52.0); HEMOGLOBIN 8.1 G/DL (14.2-18.0); LYMPHOCYTES % (AUTO) 16.2 % (20.0-45.0); MEAN CORPUSCULAR VOLUME 99 FL (80-99); MONOCYTES % (AUTO) 7.1 % (1.0-10.0); NEUTROPHILS % (AUTO) 73.3 % (45.0-75.0); PLATELET COUNT 138 K/UL (150-450); RED BLOOD COUNT 2.62 M/UL (4.70-6.10); RED CELL DISTRIBUTION WIDTH 16.4 % (11.6-14.8); WHITE BLOOD COUNT 4.6 K/UL (4.8-10.8)
[2019-02-09 16:00] VITALS: BP 141/75
--- NOTE | 2019-02-09 18:09 | General Progress Note ---
Progress Note Progress Note This is a 63 y.o , Arabic speaking male. He is denying any new symptoms or concerns. He reports feeling well today. He was admitted for abnormal labs tests, SOB, renal failure and anemia. He was suppose to receive hemodialysis today, but refused it despite attempt to convince by nurses and myself. The patient state he wishes to go home and receive dialysis from his own dialysis center. Neuro: A&Ox4 HEENT: head atraumatic, PERRLA, nose/mouth pink moist mucosa CVS: RRR Lungs: bilateral clear to ausc Abd: no ttp, bs+ GI/: ESRD-HD, denies N/V/D/C or lack of appetite Extrem: pop/pedal 2+, no bilateral lower edema Plan: CBC, CMP in morning Repeat attempt for Hemodialysis. Ally Moran N.P. Feb 09, 2019 18:09
--- NOTE | 2019-02-09 18:30 | History and Physical Report ---
DATE OF ADMISSION: 02/08/2019 SOURCE OF INFORMATION: Patient and EMR. HISTORY OF PRESENT ILLNESS: The patient is a 63-year-old male. He appears comfortable. He was transferred from the half-way regarding the abnormal blood work in the half-way. At the time of evaluation, the patient denies chest pain or shortness of breath. No nausea. No vomitus. No diarrhea. No constipation. PAST MEDICAL HISTORY: Including end-stage renal disease, hypertension, and hyperlipidemia. CURRENT HOSPITAL MEDICATION: Including but not limited to Starlix, lisinopril, iron supplementation, and hydralazine. ALLERGIES: NKDA. FAMILY HISTORY: Reviewed and noncontributory. SOCIAL HISTORY: The patient is residing in a senior living facility. Denies history of illicit drug abuse. PHYSICAL EXAMINATION: VITAL SIGNS: Blood pressure of 200/70, respiratory rate 18, temperature 98.2, pulse oximetry 98% on room air, and pulse rate 120. HEAD AND NECK: Atraumatic and normocephalic. CHEST: Clear to auscultation. HEART: S1, S2. Regular rate and rhythm. ABDOMEN: Soft. No organomegaly. MUSCULOSKELETAL: Positive for the AV shunts placed on the left upper extremity. Otherwise, unremarkable. NEUROLOGY: Awake, alert, and oriented x3. IMAGING: None. LABORATORY DATA: Labs dated February 08, 2019 shows WBC 4.6, hemoglobin of 8.9, and platelet count of 138,000. Sodium 139 and creatinine of 12.8. ASSESSMENT AND PLAN: 1. Hypertensive emergency. 2. Acute anemia based on the outside hemoglobin number of below 7.7. 3. End-stage renal disease, on hemodialysis. 4. Hypertension. 5. Diabetes. 6. GI and DVT prophylaxis. PLAN OF CARE: I discussed the care with the pattern room attendant, Dr. Tamayo. Continue with the blood pressure medication as outpatient. We will optimize medications accordingly. Once cleared by the pattern room attendant, the patient will follow up as an outpatient. COMMENT: The time of this dictation does not reflect the actual time of encounter. Peter Parker M.D. DR: LILIANA JOB#: [id number] CC:
--- NOTE | 2019-02-09 19:27 | NUR ---
NURSE NOTES: Patient refused hemodialysis. Dr. Tamayo aware.
--- NOTE | 2019-02-09 19:27 | NUR ---
HAND-OFF: Report given to STAN Gill.
--- NOTE | 2019-02-09 19:42 | NUR ---
NURSE NOTES: Pt walking from the restroom without assistance and asked if he needed help and he said no, able to make needs known, will continue to monitor.
[2019-02-09 20:00] VITALS: BP 174/58
[2019-02-09] MEDS: Iron Sucrose 100 MG in NS 55 ML IV SCH (20:40)
[2019-02-10] VITALS: BP 174/65
[2019-02-10 04:00] VITALS: BP 182/67
[2019-02-10] MEDS: Calcium Acetate 667mg Tab ORAL SCH ×3 (05:54→17:13)
[2019-02-10] MEDS: HydrALAZINE 50mg tab ORAL SCH ×3 (05:55→21:21)
[2019-02-10] MEDS: NovoLOG Insulin Flexpen SUBQ SCH ×4 (05:55→20:10)
--- NOTE | 2019-02-10 07:24 | NUR ---
HAND-OFF: Report given to STAN Roper.
[2019-02-10 08:00] VITALS: BP 162/81
--- NOTE | 2019-02-10 08:00 | NUR ---
NURSE NOTES: Received pt in bed, asleep, no sign of distress noted. IV access RAC intact, saline locked. Pt has LFA AV shunt, felt Bruit proximal to wrist area. R toes amputated. Bed locked at lowest position, call light within easy reach, siderails up x2. Will continue monitoring pt and follow up with POC.
[2019-02-10 08:04] LABS: BASOPHILS % (AUTO) 1.2 % (0.0-2.0); EOSINOPHILS % (AUTO) 3.6 % (0.0-3.0); HEMATOCRIT 25.5 % (42.0-52.0); LYMPHOCYTES % (AUTO) 14.9 % (20.0-45.0); MEAN CORPUSCULAR VOLUME 99 FL (80-99); MONOCYTES % (AUTO) 7.6 % (1.0-10.0); NEUTROPHILS % (AUTO) 72.8 % (45.0-75.0); PLATELET COUNT 155 K/UL (150-450); RED BLOOD COUNT 2.59 M/UL (4.70-6.10); RED CELL DISTRIBUTION WIDTH 16.7 % (11.6-14.8); WHITE BLOOD COUNT 4.6 K/UL (4.8-10.8)
[2019-02-10 08:44] LABS: ALANINE AMINOTRANSFERASE 15 U/L (12-78); ALBUMIN 3.3 G/DL (3.4-5.0); ALBUMIN/GLOBULIN RATIO 0.9 (1.0-2.7); ALKALINE PHOSPHATASE 108 U/L (46-116); ANION GAP 13 mmol/L (5-15); ASPARTATE AMINO TRANSFERASE 6 U/L (15-37); BILIRUBIN,TOTAL 0.5 MG/DL (0.2-1.0); BLOOD UREA NITROGEN 96 mg/dL (7-18); CALCIUM 9.4 MG/DL (8.5-10.1); CARBON DIOXIDE 19 MMOL/L (21-32); CHLORIDE 107 MMOL/L (98-107); CREATININE 14.6 MG/DL (0.55-1.30); POTASSIUM 5.4 MMOL/L (3.5-5.1); SODIUM 139 MMOL/L (136-145)
[2019-02-10] MEDS: Bisacodyl EC 5mg tab ORAL SCH (09:00)
[2019-02-10] MEDS: NIFEdipine 10mg cap ORAL SCH ×2 (09:00→12:38)
[2019-02-10] MEDS: Docusate 100mg cap ORAL SCH (09:00)
[2019-02-10] MEDS: Doxazosin 4mg tab ORAL SCH (09:00)
[2019-02-10] MEDS: Lomotil 2.5mg tab ORAL SCH (09:00)
[2019-02-10] MEDS: Nephrovite tab (Rena-Vite) ORAL SCH (09:00)
[2019-02-10] MEDS: Nateglinide 60mg tab ORAL SCH ×3 (09:00→17:13)
[2019-02-10] MEDS: Aspirin Baby 81mg ORAL SCH (09:00)
[2019-02-10] MEDS: Lisinopril 2.5mg tab ORAL SCH ×2 (09:00→12:38)
--- NOTE | 2019-02-10 09:00 | NUR ---
NURSE NOTES: paged dr. Tamayo regarding K 5.4, awaiting call back.
--- NOTE | 2019-02-10 10:00 | NUR ---
NURSE NOTES: patient refused all am meds, explained him why he need to take meds, specially BP meds as his BP is elevated 162/81. Pt still refused all meds. Paged dr. Tamayo.
[2019-02-10 12:00] VITALS: BP 197/97
--- NOTE | 2019-02-10 14:00 | NUR ---
NURSE NOTES: paged dr. Tamayo regarding K 5.4, awaiting call back.
--- NOTE | 2019-02-10 15:01 | Nephrology Progress Note ---
Assessment/Plan Assessment ESRD-HD (refusing HD) Symptomatic Anemia HTN HLD DM Plan Plan: CBC tomorrow CMP tomorrow Subjective Constitutional: Reports: no symptoms, chills, diaphoresis, fever, malaise, weakness, other HEENT: Reports: no symptoms Genitourinary: Reports: no symptoms Neurologic/Psychiatric: Reports: no symptoms Subjective The patient denies any new signs or symptoms. He says he feels fine and will receive dialysis on Monday at his dialysis clinic. Objective Objective Last 24 Hour Vital Signs Date Time Temp Pulse Resp B/P (MAP) Pulse Ox O2 Delivery O2 Flow Rate FiO2 02/10/19 12:38 197/95 02/10/19 12:38 56 197/95 02/10/19 11:38 56 197/95 02/10/19 08:00 99.1 64 16 162/81 (108) 93 02/10/19 05:55 182/67 02/10/19 04:00 97.7 59 18 182/67 (105) 98 02/10/19 00:00 97.0 60 18 174/65 (101) 95 02/09/19 21:29 174/58 02/09/19 21:00 Room Air 02/09/19 20:00 97.3 58 18 174/58 (96) 95 02/09/19 16:00 98.7 65 19 141/75 (97) 99 Intake and Output 02/09/19 02/10/19 19:00 07:00 Intake Total 550 ml 790 ml Balance 550 ml 790 ml Intake Oral 550 ml 550 ml IV Total 240 ml # Voids 6 4 # Bowel Movements 1 Laboratory Tests 02/10/19 06:40: White Blood Count 4.6L, Red Blood Count 2.59L, Hemoglobin 8.0L, Hematocrit 25.5L , Mean Corpuscular Volume 99, Mean Corpuscular Hemoglobin 31.1H, Mean Corpuscular Hemoglobin Concent 31.4L, Red Cell Distribution Width 16.7H, Platelet Count 155, Mean Platelet Volume 6.2L, Neutrophils (%) (Auto) 72.8, Lymphocytes (%) (Auto) 14.9L, Monocytes (%) (Auto) 7.6, Eosinophils (%) (Auto) 3.6H, Basophils (%) (Auto) 1.2, Sodium Level 139, Potassium Level 5.4H, Chloride Level 107, Carbon Dioxide Level 19L, Anion Gap 13, Blood Urea Nitrogen 96H, Creatinine 14.6H, Estimat Glomerular Filtration Rate 3.4, Glucose Level 68# L, Calcium Level 9.4, Total Bilirubin 0.5, Aspartate Amino Transf (AST/SGOT) 6L , Alanine Aminotransferase (ALT/SGPT) 15, Alkaline Phosphatase 108, Total Protein 6.8, Albumin 3.3L, Globulin 3.5, Albumin/Globulin Ratio 0.9L Height (Feet): 5 Height (Inches): 8.00 Weight (Pounds): 180 General Appearance: WD/WN, no apparent distress EENT: PERRL/EOMI Neck: non-tender Cardiovascular: normal peripheral pulses Respiratory/Chest: lungs clear, normal breath sounds Abdomen: normal bowel sounds, non tender Extremities: non-tender, normal inspection Neurologic: qa analyst II-XII grossly normal, no motor/sensory deficits Objective The patient is observed sitting in his chair. He does not appear content, but is calm. He is very clear that he does not want dialysis here at the hospital. I have inquired for clarification as to why he doesn't want it here, but he is adamant that he simply does not want dialysis here and this is not the reason he came her. He states that he came here for a transfusion, not dialysis. In conclusion he said I was blocking the TV. Assessment was completed and the patient was not pressed to answer or discuss further. He says goodbye politely and continues to watch television. He is alert and oriented x4, NAD, Calm and conversational, but opposes dialysis at this time. He did not have any questions. Education regarding need for dialysis was completed. Ally Moran N.P. Feb 10, 2019 15:01
[2019-02-10 16:00] VITALS: BP 123/45
--- NOTE | 2019-02-10 16:25 | Consultation ---
History of Present Illness General Chief Complaint: Abnormal Labs Present Illness Allergies: Coded Allergies: No Known Allergies (Unverified , 02/08/19) Medication History Scheduled Amlodipine Besylate* (Amlodipine Besylate*), 10 MG ORAL DAILY, (Reported) Aspirin* (Aspirin*), 81 MG ORAL DAILY, (Reported) Atorvastatin Calcium* (Lipitor*), 10 MG ORAL BEDTIME Bisacodyl* (Dulcolax*), 5 MG ORAL DAILY, (Reported) Docusate Sodium* (Docusate Sodium*), 100 MG ORAL DAILY, (Reported) Doxazosin Mesylate (Doxazosin Mesylate), 8 MG ORAL DAILY, (Reported) Folic Acid* (Folic Acid*), 1 MG ORAL DAILY, (Reported) Gabapentin* (Gabapentin*), 100 MG ORAL THREE TIMES A DAY, (Reported) Hydralazine Hcl* (Hydralazine Hcl*), 100 MG ORAL EVERY 8 HOURS, (Reported) Linagliptin (Tradjenta), 5 MG PO DAILY, (Reported) Lisinopril (Lisinopril*), 10 MG ORAL DAILY, (Reported) Nateglinide* (Starlix*), 60 MG ORAL THREE TIMES A DAY, (Reported) Nifedipine (Nifedipine*), 90 MG ORAL DAILY, (Reported) Sevelamer Hcl (Renagel), 800 MG ORAL THREE TIMES A DAY, (Reported) Vitamin B Cmplx/Vit C/Folic AC (Nephro-Leann Tablet), 1 TAB ORAL DAILY, (Reported ) Scheduled PRN Hydrocodone Bit/Acetaminophen 5-325* (Free Soil 5-325*), 1 TAB ORAL Q6H PRN Miscellaneous Medications Calcium Acetate (Calcium Acetate), 668 MG PO, (Reported) Linagliptin (Tradjenta), 5 MG PO, (Reported) Minoxidil (Minoxidil), 2.5 MG PO, (Reported) Vit D3/Folic Acid/B2/B6/B12 (Folgard Tablet), 1 EACH PO, (Reported) Discontinued Medications Heparin Sod (Porcine) (Heparin Sodium*), 5,000 UNITS SUBQ EVERY 12 HOURS Discontinued Reason: discontinued med Nifedipine Xl* (Procardia Xl*), 90 MG ORAL DAILY Discontinued Reason: discontinued med Patient History Healthcare decision maker Resuscitation status Advanced Directive on File Physical Exam Last 24 Hour Vital Signs Date Time Temp Pulse Resp B/P (MAP) Pulse Ox O2 Delivery O2 Flow Rate FiO2 02/10/19 12:38 197/95 02/10/19 12:38 56 197/95 02/10/19 11:38 56 197/95 02/10/19 08:00 99.1 64 16 162/81 (108) 93 02/10/19 05:55 182/67 02/10/19 04:00 97.7 59 18 182/67 (105) 98 02/10/19 00:00 97.0 60 18 174/65 (101) 95 02/09/19 21:29 174/58 02/09/19 21:00 Room Air 02/09/19 20:00 97.3 58 18 174/58 (96) 95 Intake and Output 02/09/19 02/10/19 18:59 06:59 Intake Total 550 ml 790 ml Balance 550 ml 790 ml Intake Oral 550 ml 550 ml IV Total 240 ml # Voids 6 4 # Bowel Movements 1 Laboratory Tests Test 02/10/19 06:40 White Blood Count 4.6 K/UL (4.8-10.8) L Red Blood Count 2.59 M/UL (4.70-6.10) L Hemoglobin 8.0 G/DL (14.2-18.0) L Hematocrit 25.5 % (42.0-52.0) L Mean Corpuscular Volume 99 FL (80-99) Mean Corpuscular Hemoglobin 31.1 PG (27.0-31.0) H Mean Corpuscular Hemoglobin Concent 31.4 G/DL (32.0-36.0) L Red Cell Distribution Width 16.7 % (11.6-14.8) H Platelet Count 155 K/UL (150-450) Mean Platelet Volume 6.2 FL (6.5-10.1) L Neutrophils (%) (Auto) 72.8 % (45.0-75.0) Lymphocytes (%) (Auto) 14.9 % (20.0-45.0) L Monocytes (%) (Auto) 7.6 % (1.0-10.0) Eosinophils (%) (Auto) 3.6 % (0.0-3.0) H Basophils (%) (Auto) 1.2 % (0.0-2.0) Sodium Level 139 MMOL/L (136-145) Potassium Level 5.4 MMOL/L (3.5-5.1) H Chloride Level 107 MMOL/L (98-107) Carbon Dioxide Level 19 MMOL/L (21-32) L Anion Gap 13 mmol/L (5-15) Blood Urea Nitrogen 96 mg/dL (7-18) H Creatinine 14.6 MG/DL (0.55-1.30) H Estimat Glomerular Filtration Rate 3.4 mL/min (>60) Glucose Level 68 MG/DL (74-106) #L Calcium Level 9.4 MG/DL (8.5-10.1) Total Bilirubin 0.5 MG/DL (0.2-1.0) Aspartate Amino Transf (AST/SGOT) 6 U/L (15-37) L Alanine Aminotransferase (ALT/SGPT) 15 U/L (12-78) Alkaline Phosphatase 108 U/L (46-116) Total Protein 6.8 G/DL (6.4-8.2) Albumin 3.3 G/DL (3.4-5.0) L Globulin 3.5 g/dL Albumin/Globulin Ratio 0.9 (1.0-2.7) L Height (Feet): 5 Height (Inches): 8.00 Weight (Pounds): 180 Medications Current Medications Medications (Trade) Dose Ordered Sig/Anne Route PRN Reason Start Time Stop Time Status Last Admin Dose Admin Acetaminophen/ Hydrocodone Bitart (Free Soil 5/325) 1 tab Q6H PRN ORAL pain 02/08/19 21:30 02/15/19 21:29 Amlodipine Besylate (Norvasc) 10 mg DAILY ORAL 02/09/19 09:00 03/11/19 08:59 02/10/19 11:38 Aspirin (ASA) 81 mg DAILY ORAL 02/09/19 09:00 03/11/19 08:59 02/09/19 09:36 Atorvastatin Calcium (Lipitor) 10 mg BEDTIME ORAL 02/09/19 21:00 03/11/19 20:59 02/09/19 20:39 Bisacodyl (Dulcolax) 5 mg DAILY ORAL 02/09/19 09:00 03/11/19 08:59 02/09/19 09:35 Calcium Acetate (Phoslo) 667 mg TIAC ORAL 02/09/19 06:30 03/11/19 06:29 02/10/19 11:37 Dextrose (Dextrose 50%) 25 ml Q30M PRN IV Hypoglycemia 02/08/19 20:30 03/10/19 20:29 Dextrose (Dextrose 50%) 50 ml Q30M PRN IV Hypoglycemia 02/08/19 20:30 03/10/19 20:29 Diphenoxylate HCl/ Atropine (Lomotil) 2.5 mg DAILY ORAL 02/09/19 09:00 03/11/19 08:59 02/09/19 09:36 Docusate Sodium (Colace) 100 mg DAILY ORAL 02/09/19 09:00 03/11/19 08:59 02/09/19 09:36 Doxazosin Mesylate (Cardura) 8 mg DAILY ORAL 02/09/19 09:00 03/11/19 08:59 Epoetin Serafin (Epoetin Serafin(ESRD on dialysis)) 8,000 unit MON- SUBQ 02/08/19 22:00 03/10/19 21:59 02/08/19 22:32 Folic Acid (Folate) 1 mg DAILY ORAL 02/09/19 09:00 03/11/19 08:59 02/09/19 09:36 Gabapentin (Neurontin) 100 mg DAILY ORAL 02/09/19 09:00 03/11/19 08:59 02/09/19 09:36 Hydralazine HCl (Apresoline) 100 mg Q8HR ORAL 02/08/19 22:00 03/10/19 21:59 02/10/19 05:55 Insulin Aspart (NovoLOG) BEFORE MEALS AND HS SUBQ 02/08/19 22:00 03/10/19 21:59 Iron Sucrose 100 mg/Sodium Chloride 60 ml @ 240 mls/hr BEDTIME IV 02/08/19 22:00 02/12/19 21:14 02/09/19 20:40 Lisinopril (Zestril) 10 mg DAILY ORAL 02/09/19 09:00 03/11/19 08:59 02/10/19 12:38 Nateglinide (Starlix) 60 mg THREE TIMES A DAY ORAL 02/09/19 09:00 03/11/19 08:59 02/10/19 12:38 Nifedipine (Adalat) 90 mg DAILY ORAL 02/09/19 09:00 03/11/19 08:59 02/10/19 12:38 Pantoprazole (Protonix) 40 mg DAILY ORAL 02/09/19 09:00 03/11/19 08:59 02/09/19 09:35 Sevelamer Carbonate (Renvela) 800 mg THREE TIMES A DAY ORAL 02/09/19 09:00 03/11/19 08:59 02/10/19 12:38 Vitamin B Complex/ Vit C/Folic Acid (Nephrovite) 1 tab DAILY ORAL 02/09/19 09:00 03/11/19 08:59 02/09/19 09:36 Assessment/Plan Assessment/Plan: Hematology Consultation RENancy MD: Wei Parker DOS: 02/10/19 RFC: Anemia eval ID 63-year-old male history of hypertension hyperlipidemia, dialysis patient, presents with generalized weakness, patient found to be anemic x1 day no aggravating or alleviating factors, no chest pain or shortness of breath, severity mild, no nausea no abdominal pain patient presents for blood transfusion, at this time, w/u was ordered and he has been refusing hd for the time being Allergies: No Known Allergies (Unverified , 02/08/19) Patient History Past Medical History: see triage record Reviewed Nursing Documentation: PMH: Agreed; PSxH: Agreed Nursing Documentation-PMH Hx Cardiac Problems: Yes - hyperkalemia, anemia Hx Hypertension: Yes - hyperlipidemia Hx Diabetes: Yes Hx Cancer: Yes - basal cell carcinoma of skinLUE incl shoulder Hx Gastrointestinal Problems: No Hx Dialysis: Yes - tue, Thurs, sat. esrd Hx Neurological Problems: No Review of Systems Constitutional: Reports: weakness All Other Systems: negative except mentioned in HPI Physical Exam General Appearance: A+O x3, NAD HEENT: normocephalic, atraumatic Neck: non-tender, normal alignment Respiratory/Chest: chest wall non-tender, lungs clear Cardiovascular/Chest: normal peripheral pulses, normal rate Abdomen: normal bowel sounds, non tender Extremities: normal range of motion Labs: noted Imaging: noted Assessment and Recs: # Anemia of chronic disease (or of iron deficiency) due to underlying chronic medical issues, multifactorial --> Anemia workup has been ordered, rule out gi bleed --> No evidence of hemolysis is noted, peripheral smear has been reviewed. --> Hgb goal >7. Transfuse prn. --> Epogen or ironhave been started and awaiting anemia panel --> Medications have been reviewed --> low threshold for gi evaluation in case has occult + --> bone marrow biopsy is not indicated given the other more likely causes # Anemia of kidney disease --> currently on epo and iron --> hgb goal is >7 # Leukopenia -- multiple etiologies could be related to underlying liver disease , medication-induced, infection versus viral syndrome --> peripheral smear has been ordered and does not show significant abnormalities --> Medications have been reviewed --> Continue to monitor for improvement, trend cbc --> Hep panel and HIV have been ordered --> US abd ordered to r/o cirrhosis and hepatosplenomegaly --> reverse isolation if ANC is <2000 --> Give neupogen if ANC <1000 # ESRD has been refusing hd --> renal aware and discussing with pt The timing of this note does not necessarily reflect the time of the patient was seen. Greatly appreciate consultation! Edouard Donald MD Feb 10, 2019 16:25
[2019-02-10 17:15] LABS: FERRITIN 974 NG/ML (8-388)
[2019-02-10 17:39] LABS: % IRON SATURATION 42 % (15-50); IRON 76 ug/dL (50-175); TOTAL IRON BINDING CAPACITY 183 ug/dL (250-450)
--- NOTE | 2019-02-10 19:22 | NUR ---
NURSE NOTES: Pt received standing in the hallway next to his room, no c/o pain or signs of distress, received report that pt refused all medication, will continue to monitor, received report that pt K 5.[address] tello paged but no call back yet, will continue to monitor and attempt to collect stool.l
--- NOTE | 2019-02-10 19:38 | NUR ---
HAND-OFF: Report given to STAN Mercedes.
--- NOTE | 2019-02-10 19:41 | General Progress Note ---
Assessment/Plan Assessment/Plan: S: I am ok O: limited verbal communication. Seems comfortable, denies any CP or SOB PHYSICAL EXAMINATION:HEAD AND NECK: Atraumatic and normocephalic. CHEST: Clear to auscultation.HEART: S1, S2. Regular rate and rhythm. ABDOMEN: Soft. No organomegaly.MUSCULOSKELETAL: Positive for the AV shunts placed on the left upper extremity. Otherwise, unremarkable.NEUROLOGY: Awake, alert, and oriented x3. IMAGING: None. LABORATORY DATA: Labs dated February 10 reviewed ASSESSMENT AND PLAN: 1. Hypertensive emergency. 2. Acute anemia based on the outside hemoglobin number of below 7.7. 3. End-stage renal disease, on hemodialysis. 4. Hypertension. 5. Diabetes. 6. GI and DVT prophylaxis. PLAN OF CARE: HD management per Dr Tamayo Will optimize BP medication Subjective Allergies: Coded Allergies: No Known Allergies (Unverified , 02/08/19) Objective Last 24 Hour Vital Signs Date Time Temp Pulse Resp B/P (MAP) Pulse Ox O2 Delivery O2 Flow Rate FiO2 02/10/19 16:00 98.2 55 17 123/45 (71) 96 02/10/19 12:38 197/95 02/10/19 12:38 56 197/95 02/10/19 12:00 97.3 56 18 197/97 (130) 97 02/10/19 11:38 56 197/95 02/10/19 09:00 Room Air 02/10/19 08:00 99.1 64 16 162/81 (108) 93 02/10/19 05:55 182/67 02/10/19 04:00 97.7 59 18 182/67 (105) 98 02/10/19 00:00 97.0 60 18 174/65 (101) 95 02/09/19 21:29 174/58 02/09/19 21:00 Room Air 02/09/19 20:00 97.3 58 18 174/58 (96) 95 Intake and Output 02/09/19 02/10/19 18:59 06:59 Intake Total 550 ml 790 ml Balance 550 ml 790 ml Intake Oral 550 ml 550 ml IV Total 240 ml # Voids 6 4 # Bowel Movements 1 Laboratory Tests 02/10/19 04:00: Hepatitis A IgM Antibody [Pending], Hepatitis B Surface Antigen [Pending], Hepatitis B Core IgM Antibody [Pending], Hepatitis C Antibody [Pending] 02/10/19 06:40: White Blood Count 4.6L, Red Blood Count 2.59L, Hemoglobin 8.0L, Hematocrit 25.5L , Mean Corpuscular Volume 99, Mean Corpuscular Hemoglobin 31.1H, Mean Corpuscular Hemoglobin Concent 31.4L, Red Cell Distribution Width 16.7H, Platelet Count 155, Mean Platelet Volume 6.2L, Neutrophils (%) (Auto) 72.8, Lymphocytes (%) (Auto) 14.9L, Monocytes (%) (Auto) 7.6, Eosinophils (%) (Auto) 3.6H, Basophils (%) (Auto) 1.2, Differential Total Cells Counted 100, Neutrophils % (Manual) 75, Lymphocytes % (Manual) 14L, Monocytes % (Manual) 6, Eosinophils % (Manual) 4H, Basophils % (Manual) 1, Band Neutrophils 0, Platelet Estimate Adequate, Platelet Morphology Normal, Hypochromasia 1+, Anisocytosis 1+ , Sodium Level 139, Potassium Level 5.4H, Chloride Level 107, Carbon Dioxide Level 19L, Anion Gap 13, Blood Urea Nitrogen 96H, Creatinine 14.6H, Estimat Glomerular Filtration Rate 3.4, Glucose Level 68#L, Calcium Level 9.4, Total Bilirubin 0.5, Aspartate Amino Transf (AST/SGOT) 6L, Alanine Aminotransferase ( ALT/SGPT) 15, Alkaline Phosphatase 108, Total Protein 6.8, Albumin 3.3L, Globulin 3.5, Albumin/Globulin Ratio 0.9L, HIV (1&2) Antibody Rapid Negative 02/10/19 06:42: Iron Level 76, Total Iron Binding Capacity 183L, Percent Iron Saturation 42, Unsaturated Iron Binding 107L, Ferritin 974H, Vitamin B12 Level 1003H, Folate 61.4H, Thyroid Stimulating Hormone (TSH) 1.240 Height (Feet): 5 Height (Inches): 8.00 Weight (Pounds): 180 Peter Parker MD Feb 10, 2019 19:41
[2019-02-10 20:00] VITALS: BP 136/47
[2019-02-10] MEDS: Iron Sucrose 100 MG in NS 55 ML IV SCH (20:09)
[2019-02-11 04:00] VITALS: BP 167/58
[2019-02-11] MEDS: HydrALAZINE 50mg tab ORAL SCH ×3 (05:43→21:32)
[2019-02-11] MEDS: Calcium Acetate 667mg Tab ORAL SCH ×3 (05:43→16:47)
[2019-02-11] MEDS: NovoLOG Insulin Flexpen SUBQ SCH ×4 (06:30→20:32)
--- NOTE | 2019-02-11 07:27 | NUR ---
HAND-OFF: Report given to STAN Roper.
[2019-02-11 08:00] VITALS: BP 116/73
[2019-02-11 08:02] LABS: HEMATOCRIT 25.2 % (42.0-52.0); HEMOGLOBIN 7.8 G/DL (14.2-18.0); MEAN CORPUSCULAR VOLUME 99 FL (80-99); PLATELET COUNT 138 K/UL (150-450); RED BLOOD COUNT 2.53 M/UL (4.70-6.10); RED CELL DISTRIBUTION WIDTH 16.1 % (11.6-14.8); WHITE BLOOD COUNT 4.3 K/UL (4.8-10.8)
[2019-02-11 08:14] LABS: ALANINE AMINOTRANSFERASE 14 U/L (12-78); ALBUMIN 3.4 G/DL (3.4-5.0); ALKALINE PHOSPHATASE 108 U/L (46-116); ANION GAP 17 mmol/L (5-15); ASPARTATE AMINO TRANSFERASE 5 U/L (15-37); BILIRUBIN,TOTAL 0.5 MG/DL (0.2-1.0); BLOOD UREA NITROGEN 111 mg/dL (7-18); CALCIUM 9.5 MG/DL (8.5-10.1); CARBON DIOXIDE 18 MMOL/L (21-32); CHLORIDE 104 MMOL/L (98-107); CREATININE 16.3 MG/DL (0.55-1.30); POTASSIUM 5.7 MMOL/L (3.5-5.1); SODIUM 139 MMOL/L (136-145)
--- NOTE | 2019-02-11 08:15 | NUR ---
NURSE NOTES: Received pt in bed, awake, no complaint of pain or discomfort. IV access RAC intact, saline locked. Pt still refuses HD when inquired. Told pt to have BM on the designated plastic hairston for collection. Bed locked at lowest position, call light within easy reach, siderails up x2. Will continue monitoring pt and follow up with POC.
--- NOTE | 2019-02-11 09:29 | Cardiac Electrophysiology PN ---
Subjective Subjective [id number] Objective Last 24 Hour Vital Signs Date Time Temp Pulse Resp B/P (MAP) Pulse Ox O2 Delivery O2 Flow Rate FiO2 02/11/19 05:43 167/58 02/11/19 04:00 98.6 57 18 167/58 (94) 94 02/10/19 21:21 151/56 02/10/19 21:00 Room Air 02/10/19 20:00 97.9 55 18 136/47 (76) 96 02/10/19 16:00 98.2 55 17 123/45 (71) 96 02/10/19 12:38 197/95 02/10/19 12:38 56 197/95 02/10/19 12:00 97.3 56 18 197/97 (130) 97 02/10/19 11:38 56 197/95 Intake and Output 02/10/19 02/11/19 19:00 07:00 Intake Total 1560 ml 740 ml Balance 1560 ml 740 ml Intake Oral 1560 ml 500 ml IV Total 240 ml # Voids 4 3 Laboratory Tests Test 02/11/19 05:40 White Blood Count 4.3 K/UL (4.8-10.8) L Red Blood Count 2.53 M/UL (4.70-6.10) L Hemoglobin 7.8 G/DL (14.2-18.0) L Hematocrit 25.2 % (42.0-52.0) L Mean Corpuscular Volume 99 FL (80-99) Mean Corpuscular Hemoglobin 31.0 PG (27.0-31.0) Mean Corpuscular Hemoglobin Concent 31.1 G/DL (32.0-36.0) L Red Cell Distribution Width 16.1 % (11.6-14.8) H Platelet Count 138 K/UL (150-450) L Mean Platelet Volume 6.5 FL (6.5-10.1) Neutrophils (%) (Auto) % (45.0-75.0) Lymphocytes (%) (Auto) % (20.0-45.0) Monocytes (%) (Auto) % (1.0-10.0) Eosinophils (%) (Auto) % (0.0-3.0) Basophils (%) (Auto) % (0.0-2.0) Differential Total Cells Counted 100 Neutrophils % (Manual) 68 % (45-75) Lymphocytes % (Manual) 23 % (20-45) Monocytes % (Manual) 5 % (1-10) Eosinophils % (Manual) 4 % (0-3) H Basophils % (Manual) 0 % (0-2) Band Neutrophils 0 % (0-8) Platelet Estimate Decreased L Platelet Morphology Normal Hypochromasia 3+ Anisocytosis 1+ Sodium Level 139 MMOL/L (136-145) Potassium Level 5.7 MMOL/L (3.5-5.1) H Chloride Level 104 MMOL/L (98-107) Carbon Dioxide Level 18 MMOL/L (21-32) L Anion Gap 17 mmol/L (5-15) H Blood Urea Nitrogen 111 mg/dL (7-18) H Creatinine 16.3 MG/DL (0.55-1.30) H Estimat Glomerular Filtration Rate 3.0 mL/min (>60) Glucose Level 76 MG/DL (74-106) Calcium Level 9.5 MG/DL (8.5-10.1) Total Bilirubin 0.5 MG/DL (0.2-1.0) Aspartate Amino Transf (AST/SGOT) 5 U/L (15-37) L Alanine Aminotransferase (ALT/SGPT) 14 U/L (12-78) Alkaline Phosphatase 108 U/L (46-116) Total Protein 6.9 G/DL (6.4-8.2) Albumin 3.4 G/DL (3.4-5.0) Globulin 3.5 g/dL Albumin/Globulin Ratio 1.0 (1.0-2.7) Hepatitis A IgM Antibody Pending Hepatitis B Surface Antigen Pending Hepatitis B Core IgM Antibody Pending Hepatitis C Antibody Pending Microbiology Date/Time Source Procedure Growth Status 02/08/19 18:00 Nasal Nares MRSA Culture - Final NO METHICILLIN RESISTANT STAPH AUREUS... Complete 02/08/19 18:00 Rectum VRE Culture - Final NO VANCOMYCIN RESISTANT ENTEROCOCCUS ... Complete 02/08/19 18:00 Rectum - Final NO CARBAPENEM-RESISTANT ENTEROBACTERI... Complete Filippo Lamb MD Feb 11, 2019 09:29
[2019-02-11] MEDS: Bisacodyl EC 5mg tab ORAL SCH (10:30)
[2019-02-11] MEDS: Nephrovite tab (Rena-Vite) ORAL SCH (10:30)
[2019-02-11] MEDS: Aspirin Baby 81mg ORAL SCH (10:30)
[2019-02-11] MEDS: Doxazosin 4mg tab ORAL SCH (10:30)
[2019-02-11] MEDS: Docusate 100mg cap ORAL SCH (10:31)
[2019-02-11] MEDS: Nateglinide 60mg tab ORAL SCH ×3 (10:31→16:55)
[2019-02-11] MEDS: Lomotil 2.5mg tab ORAL SCH (10:31)
[2019-02-11 12:00] VITALS: BP 148/66
[2019-02-11] MEDS: NIFEdipine 10mg cap ORAL SCH (12:11)
[2019-02-11] MEDS: Lisinopril 2.5mg tab ORAL SCH (12:12)
--- NOTE | 2019-02-11 13:09 | Nephrology Progress Note ---
Assessment/Plan Plan Needs psych eval! Needs HD ADIEL!. Subjective Subjective Kicking me out of the room Objective Objective Last 24 Hour Vital Signs Date Time Temp Pulse Resp B/P (MAP) Pulse Ox O2 Delivery O2 Flow Rate FiO2 02/11/19 12:13 67 148/66 02/11/19 12:12 148/66 02/11/19 12:11 67 148/66 02/11/19 12:00 98.2 67 18 148/66 (93) 97 02/11/19 09:00 Room Air 02/11/19 08:00 97.1 86 21 116/73 (87) 97 02/11/19 05:43 167/58 02/11/19 04:00 98.6 57 18 167/58 (94) 94 02/10/19 21:21 151/56 02/10/19 21:00 Room Air 02/10/19 20:00 97.9 55 18 136/47 (76) 96 02/10/19 16:00 98.2 55 17 123/45 (71) 96 Intake and Output 02/10/19 02/11/19 19:00 07:00 Intake Total 1560 ml 740 ml Balance 1560 ml 740 ml Intake Oral 1560 ml 500 ml IV Total 240 ml # Voids 4 3 Laboratory Tests 02/11/19 05:40: White Blood Count 4.3L, Red Blood Count 2.53L, Hemoglobin 7.8L, Hematocrit 25.2L , Mean Corpuscular Volume 99, Mean Corpuscular Hemoglobin 31.0, Mean Corpuscular Hemoglobin Concent 31.1L, Red Cell Distribution Width 16.1H, Platelet Count 138L, Mean Platelet Volume 6.5, Neutrophils (%) (Auto) , Lymphocytes (%) (Auto) , Monocytes (%) (Auto) , Eosinophils (%) (Auto) , Basophils (%) (Auto) , Differential Total Cells Counted 100, Neutrophils % ( Manual) 68, Lymphocytes % (Manual) 23, Monocytes % (Manual) 5, Eosinophils % ( Manual) 4H, Basophils % (Manual) 0, Band Neutrophils 0, Platelet Estimate DecreasedL, Platelet Morphology Normal, Hypochromasia 3+, Anisocytosis 1+, Sodium Level 139, Potassium Level 5.7H, Chloride Level 104, Carbon Dioxide Level 18L, Anion Gap 17H, Blood Urea Nitrogen 111H, Creatinine 16.3H, Estimat Glomerular Filtration Rate 3.0, Glucose Level 76, Calcium Level 9.5, Total Bilirubin 0.5, Aspartate Amino Transf (AST/SGOT) 5L, Alanine Aminotransferase ( ALT/SGPT) 14, Alkaline Phosphatase 108, Total Protein 6.9, Albumin 3.4, Globulin 3.5, Albumin/Globulin Ratio 1.0, Hepatitis A IgM Antibody [Pending], Hepatitis B Surface Antigen [Pending], Hepatitis B Core IgM Antibody [Pending], Hepatitis C Antibody [Pending] 02/11/19 11:15: Troponin I 0.022 Height (Feet): 5 Height (Inches): 8.00 Weight (Pounds): 180 Objective Refusing exam Kate Tamayo MD Feb 11, 2019 13:09
--- NOTE | 2019-02-11 14:59 | General Progress Note ---
Assessment/Plan Assessment/Plan: S: I am ok O: limited verbal communication. Hard hearing. Seems comfortable, denies any CP or SOB PHYSICAL EXAMINATION:HEAD AND NECK: Atraumatic and normocephalic. CHEST: Clear to auscultation.HEART: S1, S2. Regular rate and rhythm. ABDOMEN: Soft. No organomegaly.MUSCULOSKELETAL: Positive for the AV shunts placed on the left upper extremity. Otherwise, unremarkable.NEUROLOGY: Awake, alert, and oriented x3. IMAGING: None. LABORATORY DATA: Labs dated February 11 reviewed ASSESSMENT AND PLAN: 1. Hypertensive emergency. 2. Acute anemia based on the outside hemoglobin number of below 7.7. 3. End-stage renal disease, on hemodialysis. 4. Hypertension. 5. Diabetes. 6. GI and DVT prophylaxis. 7. Refusal of HD PLAN OF CARE: HD management per Dr Tamayo Will optimize BP medication Refusal of medical care Psych, Dr Patino, consulted Subjective Allergies: Coded Allergies: No Known Allergies (Unverified , 02/08/19) Objective Last 24 Hour Vital Signs Date Time Temp Pulse Resp B/P (MAP) Pulse Ox O2 Delivery O2 Flow Rate FiO2 02/11/19 12:13 67 148/66 02/11/19 12:12 148/66 02/11/19 12:11 67 148/66 02/11/19 12:00 98.2 67 18 148/66 (93) 97 02/11/19 09:00 Room Air 02/11/19 08:00 97.1 86 21 116/73 (87) 97 02/11/19 05:43 167/58 02/11/19 04:00 98.6 57 18 167/58 (94) 94 02/10/19 21:21 151/56 02/10/19 21:00 Room Air 02/10/19 20:00 97.9 55 18 136/47 (76) 96 02/10/19 16:00 98.2 55 17 123/45 (71) 96 Intake and Output 02/10/19 02/11/19 19:00 07:00 Intake Total 1560 ml 740 ml Balance 1560 ml 740 ml Intake Oral 1560 ml 500 ml IV Total 240 ml # Voids 4 3 Laboratory Tests 02/11/19 05:40: White Blood Count 4.3L, Red Blood Count 2.53L, Hemoglobin 7.8L, Hematocrit 25.2L , Mean Corpuscular Volume 99, Mean Corpuscular Hemoglobin 31.0, Mean Corpuscular Hemoglobin Concent 31.1L, Red Cell Distribution Width 16.1H, Platelet Count 138L, Mean Platelet Volume 6.5, Neutrophils (%) (Auto) , Lymphocytes (%) (Auto) , Monocytes (%) (Auto) , Eosinophils (%) (Auto) , Basophils (%) (Auto) , Differential Total Cells Counted 100, Neutrophils % ( Manual) 68, Lymphocytes % (Manual) 23, Monocytes % (Manual) 5, Eosinophils % ( Manual) 4H, Basophils % (Manual) 0, Band Neutrophils 0, Platelet Estimate DecreasedL, Platelet Morphology Normal, Hypochromasia 3+, Anisocytosis 1+, Sodium Level 139, Potassium Level 5.7H, Chloride Level 104, Carbon Dioxide Level 18L, Anion Gap 17H, Blood Urea Nitrogen 111H, Creatinine 16.3H, Estimat Glomerular Filtration Rate 3.0, Glucose Level 76, Calcium Level 9.5, Total Bilirubin 0.5, Aspartate Amino Transf (AST/SGOT) 5L, Alanine Aminotransferase ( ALT/SGPT) 14, Alkaline Phosphatase 108, Total Protein 6.9, Albumin 3.4, Globulin 3.5, Albumin/Globulin Ratio 1.0, Hepatitis A IgM Antibody [Pending], Hepatitis B Surface Antigen [Pending], Hepatitis B Core IgM Antibody [Pending], Hepatitis C Antibody [Pending] 02/11/19 11:15: Troponin I 0.022 02/11/19 11:30: Stool Occult Blood [Pending] Height (Feet): 5 Height (Inches): 8.00 Weight (Pounds): 180 Peter Parker MD Feb 11, 2019 14:59
--- NOTE | 2019-02-11 15:20 | Hematology/Onc Progress Note ---
Assessment/Plan Assessment/Plan # Anemia of chronic disease due to underlying chronic medical issues, multifactorial, CKD --> Anemia workup has been ordered, rule out gi bleed --> No evidence of hemolysis is noted, peripheral smear has been reviewed. --> Hgb goal >7. Transfuse prn. --> Epogen or ironat this time not indicated unless h/h lower may need epo, ferritin is >900 --> Medications have been reviewed --> low threshold for gi evaluation in case has occult + --> bone marrow biopsy is not indicated given the other more likely causes # Anemia of kidney disease --> currently on epo and iron --> hgb goal is >7 # Leukopenia -- multiple etiologies could be related to underlying liver disease , medication-induced, infection versus viral syndrome --> peripheral smear has been ordered and does not show significant abnormalities --> Medications have been reviewed --> Continue to monitor for improvement, trend cbc --> Hiv is negative, hep pending --> US abd ordered to r/o cirrhosis and hepatosplenomegaly (PEND) --> reverse isolation if ANC is <2000 --> Give neupogen if ANC <1000 # ESRD has been refusing hd --> renal aware and discussing with pt The timing of this note does not necessarily reflect the time of the patient was seen. Greatly appreciate consultation! Subjective Constitutional: Denies: no symptoms, chills, fever, malaise, weakness, other HEENT: Denies: no symptoms, eye pain, blurred vision, tearing, double vision, ear pain, ear discharge, nose pain, nose congestion, throat pain, throat swelling, mouth pain, mouth swelling, other Cardiovascular: Denies: no symptoms, chest pain, edema, irregular heart rate, lightheadedness, palpitations, syncope, other Respiratory: Denies: no symptoms, cough, shortness of breath, SOB with excertion, SOB at rest, sputum, wheezing, other Genitourinary: Denies: no symptoms, burning, discharge, frequency, flank pain, hematuria, incontinence, pain, urgency, other Neurologic/Psychiatric: Denies: no symptoms, anxiety, depressed, emotional problems, headache, numbness, paresthesia, pre-existing deficit, seizure, tingling, tremors, weakness, other Allergies: Coded Allergies: No Known Allergies (Unverified , 02/08/19) Subjective 02/11:no events to report, no f/c, no night sweats, needs hd, psych eval Objective Objective Current Medications Medications (Trade) Dose Ordered Sig/Anne Route PRN Reason Start Time Stop Time Status Last Admin Dose Admin Acetaminophen/ Hydrocodone Bitart ([place] 5/325) 1 tab Q6H PRN ORAL pain 02/08/19 21:30 02/15/19 21:29 Amlodipine Besylate (Norvasc) 10 mg DAILY ORAL 02/09/19 09:00 03/11/19 08:59 02/11/19 12:13 Aspirin (ASA) 81 mg DAILY ORAL 02/09/19 09:00 03/11/19 08:59 02/11/19 10:30 Atorvastatin Calcium (Lipitor) 10 mg BEDTIME ORAL 02/09/19 21:00 03/11/19 20:59 02/10/19 20:08 Bisacodyl (Dulcolax) 5 mg DAILY ORAL 02/09/19 09:00 03/11/19 08:59 02/11/19 10:30 Calcium Acetate (Phoslo) 667 mg TIAC ORAL 02/09/19 06:30 03/11/19 06:29 02/11/19 12:03 Clonidine HCl (Catapres Tab) 0.1 mg Q2H PRN ORAL FOR SBP>170 02/11/19 09:45 03/13/19 09:44 Dextrose (Dextrose 50%) 25 ml Q30M PRN IV Hypoglycemia 02/08/19 20:30 03/10/19 20:29 Dextrose (Dextrose 50%) 50 ml Q30M PRN IV Hypoglycemia 02/08/19 20:30 03/10/19 20:29 Diphenoxylate HCl/ Atropine (Lomotil) 2.5 mg DAILY ORAL 02/09/19 09:00 03/11/19 08:59 02/11/19 10:31 Docusate Sodium (Colace) 100 mg DAILY ORAL 02/09/19 09:00 03/11/19 08:59 02/11/19 10:31 Doxazosin Mesylate (Cardura) 8 mg DAILY ORAL 02/09/19 09:00 03/11/19 08:59 02/11/19 10:30 Epoetin Serafin (Epoetin Serafin(ESRD on dialysis)) 8,000 unit MON-MON-MON SUBQ 02/08/19 22:00 03/10/19 21:59 02/08/19 22:32 Folic Acid (Folate) 1 mg DAILY ORAL 02/09/19 09:00 03/11/19 08:59 02/11/19 10:30 Gabapentin (Neurontin) 100 mg DAILY ORAL 02/09/19 09:00 03/11/19 08:59 02/11/19 10:31 Hydralazine HCl (Apresoline) 100 mg Q8HR ORAL 02/08/19 22:00 03/10/19 21:59 02/11/19 15:13 Insulin Aspart (NovoLOG) BEFORE MEALS AND HS SUBQ 02/08/19 22:00 03/10/19 21:59 Iron Sucrose 100 mg/Sodium Chloride 60 ml @ 240 mls/hr BEDTIME IV 02/08/19 22:00 02/12/19 21:14 02/10/19 20:09 Lisinopril (Zestril) 10 mg DAILY ORAL 02/09/19 09:00 03/11/19 08:59 02/11/19 12:12 Nateglinide (Starlix) 60 mg THREE TIMES A DAY ORAL 02/09/19 09:00 03/11/19 08:59 02/11/19 12:03 Nifedipine (Adalat) 90 mg DAILY ORAL 02/09/19 09:00 03/11/19 08:59 02/11/19 12:11 Pantoprazole (Protonix) 40 mg DAILY ORAL 02/09/19 09:00 03/11/19 08:59 02/11/19 10:30 Sevelamer Carbonate (Renvela) 800 mg THREE TIMES A DAY ORAL 02/09/19 09:00 03/11/19 08:59 02/11/19 12:13 Vitamin B Complex/ Vit C/Folic Acid (Nephrovite) 1 tab DAILY ORAL 02/09/19 09:00 03/11/19 08:59 02/11/19 10:30 Last 24 Hour Vital Signs Date Time Temp Pulse Resp B/P (MAP) Pulse Ox O2 Delivery O2 Flow Rate FiO2 02/11/19 15:13 148/66 02/11/19 12:13 67 148/66 02/11/19 12:12 148/66 02/11/19 12:11 67 148/66 02/11/19 12:00 98.2 67 18 148/66 (93) 97 02/11/19 09:00 Room Air 02/11/19 08:00 97.1 86 21 116/73 (87) 97 02/11/19 05:43 167/58 02/11/19 04:00 98.6 57 18 167/58 (94) 94 02/10/19 21:21 151/56 02/10/19 21:00 Room Air 02/10/19 20:00 97.9 55 18 136/47 (76) 96 02/10/19 16:00 98.2 55 17 123/45 (71) 96 02/10/19 12:38 197/95 02/10/19 12:38 56 197/95 02/10/19 12:00 97.3 56 18 197/97 (130) 97 02/10/19 11:38 56 197/95 02/10/19 09:00 Room Air 02/10/19 08:00 99.1 64 16 162/81 (108) 93 02/10/19 05:55 182/67 02/10/19 04:00 97.7 59 18 182/67 (105) 98 02/10/19 00:00 97.0 60 18 174/65 (101) 95 02/09/19 21:29 174/58 02/09/19 21:00 Room Air 02/09/19 20:00 97.3 58 18 174/58 (96) 95 02/09/19 16:00 98.7 65 19 141/75 (97) 99 Intake and Output 02/10/19 02/11/19 19:00 07:00 Intake Total 1560 ml 740 ml Balance 1560 ml 740 ml Intake Oral 1560 ml 500 ml IV Total 240 ml # Voids 4 3 Labs Test 02/09/19 00:50 02/09/19 12:30 02/10/19 06:40 02/10/19 06:42 White Blood Count 6.0 K/UL (4.8-10.8) 4.6 K/UL (4.8-10.8) 4.6 K/UL (4.8-10.8) Red Blood Count 2.63 M/UL (4.70-6.10) 2.62 M/UL (4.70-6.10) 2.59 M/UL (4.70-6.10) Hemoglobin 8.2 G/DL (14.2-18.0) 8.1 G/DL (14.2-18.0) 8.0 G/DL (14.2-18.0) Hematocrit 25.5 % (42.0-52.0) 25.9 % (42.0-52.0) 25.5 % (42.0-52.0) Mean Corpuscular Volume 97 FL (80-99) 99 FL (80-99) 99 FL (80-99) Mean Corpuscular Hemoglobin 31.1 PG (27.0-31.0) 31.0 PG (27.0-31.0) 31.1 PG (27.0-31.0) Mean Corpuscular Hemoglobin Concent 32.0 G/DL (32.0-36.0) 31.4 G/DL (32.0-36.0) 31.4 G/DL (32.0-36.0) Red Cell Distribution Width 16.1 % (11.6-14.8) 16.4 % (11.6-14.8) 16.7 % (11.6-14.8) Platelet Count 122 K/UL (150-450) 138 K/UL (150-450) 155 K/UL (150-450) Mean Platelet Volume 5.2 FL (6.5-10.1) 6.4 FL (6.5-10.1) 6.2 FL (6.5-10.1) Neutrophils (%) (Auto) 76.6 % (45.0-75.0) 73.3 % (45.0-75.0) 72.8 % (45.0-75.0) Lymphocytes (%) (Auto) 13.5 % (20.0-45.0) 16.2 % (20.0-45.0) 14.9 % (20.0-45.0) Monocytes (%) (Auto) 6.4 % (1.0-10.0) 7.1 % (1.0-10.0) 7.6 % (1.0-10.0) Eosinophils (%) (Auto) 3.0 % (0.0-3.0) 2.2 % (0.0-3.0) 3.6 % (0.0-3.0) Basophils (%) (Auto) 0.5 % (0.0-2.0) 1.2 % (0.0-2.0) 1.2 % (0.0-2.0) Sodium Level 139 MMOL/L (136-145) 139 MMOL/L (136-145) Potassium Level 4.7 MMOL/L (3.5-5.1) 5.4 MMOL/L (3.5-5.1) Chloride Level 106 MMOL/L (98-107) 107 MMOL/L (98-107) Carbon Dioxide Level 20 MMOL/L (21-32) 19 MMOL/L (21-32) Anion Gap 13 mmol/L (5-15) 13 mmol/L (5-15) Blood Urea Nitrogen 82 mg/dL (7-18) 96 mg/dL (7-18) Creatinine 13.4 MG/DL (0.55-1.30) 14.6 MG/DL (0.55-1.30) Estimat Glomerular Filtration Rate 3.8 mL/min (>60) 3.4 mL/min (>60) Glucose Level 183 MG/DL (74-106) 68 MG/DL (74-106) Calcium Level 9.2 MG/DL (8.5-10.1) 9.4 MG/DL (8.5-10.1) Hepatitis B Surface Antigen Negative (NEGATIVE) Differential Total Cells Counted 100 Neutrophils % (Manual) 75 % (45-75) Lymphocytes % (Manual) 14 % (20-45) Monocytes % (Manual) 6 % (1-10) Eosinophils % (Manual) 4 % (0-3) Basophils % (Manual) 1 % (0-2) Band Neutrophils 0 % (0-8) Platelet Estimate Adequate Platelet Morphology Normal Hypochromasia 1+ Anisocytosis 1+ Total Bilirubin 0.5 MG/DL (0.2-1.0) Aspartate Amino Transf (AST/SGOT) 6 U/L (15-37) Alanine Aminotransferase (ALT/SGPT) 15 U/L (12-78) Alkaline Phosphatase 108 U/L (46-116) Total Protein 6.8 G/DL (6.4-8.2) Albumin 3.3 G/DL (3.4-5.0) Globulin 3.5 g/dL Albumin/Globulin Ratio 0.9 (1.0-2.7) HIV (1&2) Antibody Rapid Negative (NEGATIVE) Iron Level 76 ug/dL (50-175) Total Iron Binding Capacity 183 ug/dL (250-450) Percent Iron Saturation 42 % (15-50) Unsaturated Iron Binding 107 ug/dL (112-346) Ferritin 974 NG/ML (8-388) Vitamin B12 Level 1003 PG/ML (193-986) Folate 61.4 NG/ML (8.6-58.9) Thyroid Stimulating Hormone (TSH) 1.240 uiU/mL (0.358-3.740) Test 02/11/19 05:40 02/11/19 11:15 02/11/19 11:30 White Blood Count 4.3 K/UL (4.8-10.8) Red Blood Count 2.53 M/UL (4.70-6.10) Hemoglobin 7.8 G/DL (14.2-18.0) Hematocrit 25.2 % (42.0-52.0) Mean Corpuscular Volume 99 FL (80-99) Mean Corpuscular Hemoglobin 31.0 PG (27.0-31.0) Mean Corpuscular Hemoglobin Concent 31.1 G/DL (32.0-36.0) Red Cell Distribution Width 16.1 % (11.6-14.8) Platelet Count 138 K/UL (150-450) Mean Platelet Volume 6.5 FL (6.5-10.1) Neutrophils (%) (Auto) % (45.0-75.0) Lymphocytes (%) (Auto) % (20.0-45.0) Monocytes (%) (Auto) % (1.0-10.0) Eosinophils (%) (Auto) % (0.0-3.0) Basophils (%) (Auto) % (0.0-2.0) Differential Total Cells Counted 100 Neutrophils % (Manual) 68 % (45-75) Lymphocytes % (Manual) 23 % (20-45) Monocytes % (Manual) 5 % (1-10) Eosinophils % (Manual) 4 % (0-3) Basophils % (Manual) 0 % (0-2) Band Neutrophils 0 % (0-8) Platelet Estimate Decreased Platelet Morphology Normal Hypochromasia 3+ Anisocytosis 1+ Sodium Level 139 MMOL/L (136-145) Potassium Level 5.7 MMOL/L (3.5-5.1) Chloride Level 104 MMOL/L (98-107) Carbon Dioxide Level 18 MMOL/L (21-32) Anion Gap 17 mmol/L (5-15) Blood Urea Nitrogen 111 mg/dL (7-18) Creatinine 16.3 MG/DL (0.55-1.30) Estimat Glomerular Filtration Rate 3.0 mL/min (>60) Glucose Level 76 MG/DL (74-106) Calcium Level 9.5 MG/DL (8.5-10.1) Total Bilirubin 0.5 MG/DL (0.2-1.0) Aspartate Amino Transf (AST/SGOT) 5 U/L (15-37) Alanine Aminotransferase (ALT/SGPT) 14 U/L (12-78) Alkaline Phosphatase 108 U/L (46-116) Total Protein 6.9 G/DL (6.4-8.2) Albumin 3.4 G/DL (3.4-5.0) Globulin 3.5 g/dL Albumin/Globulin Ratio 1.0 (1.0-2.7) Troponin I 0.022 ng/mL (0.000-0.056) Height (Feet): 5 Height (Inches): 8.00 Weight (Pounds): 180 Objective Physical Exam General Appearance: A+O x3, NAD HEENT: normocephalic, atraumatic Neck: non-tender, normal alignment Respiratory/Chest: chest wall non-tender, lungs clear Cardiovascular/Chest: normal peripheral pulses, normal rate Abdomen: normal bowel sounds, non tender Extremities: normal range of motion Edouard Donald MD Feb 11, 2019 15:20
[2019-02-11 16:00] VITALS: BP 135/51
[2019-02-11 16:16] LABS: HEMATOCRIT 23.8 % (42.0-52.0); HEMOGLOBIN 7.8 G/DL (14.2-18.0); MEAN CORPUSCULAR VOLUME 95 FL (80-99); PLATELET COUNT 126 K/UL (150-450); RED BLOOD COUNT 2.51 M/UL (4.70-6.10); RED CELL DISTRIBUTION WIDTH 15.3 % (11.6-14.8); WHITE BLOOD COUNT 4.5 K/UL (4.8-10.8)
--- NOTE | 2019-02-11 17:30 | Consultation ---
DATE OF CONSULTATION: 02/11/2019 CARDIOLOGY CONSULTATION CONSULTING PHYSICIAN: Filippo Lamb M.D. REFERRING PHYSICIAN: Peter Parker M.D. REASON FOR CONSULTATION: Management of hypertension and weakness. HISTORY OF PRESENT ILLNESS: The patient is a 63-year-old gentleman with history of hypertension, hyperlipidemia, and history of end-stage renal disease, on hemodialysis, was admitted for generalized weakness and was found to have severe anemia with hemoglobin around 7. The patient did not have any chest pain or shortness of breath. The patient has been noncompliant while he is on the floor. He also has history of basal cell carcinoma of the left upper extremity and the shoulder. His blood pressure was as high as 222/72. Cardiology consultation was obtained. REVIEW OF SYSTEMS: Negative other than what was mentioned in the history of present illness. PAST MEDICAL HISTORY: As mentioned above. FAMILY HISTORY: Noncontributory. SOCIAL HISTORY: [facility]. Does not smoke or drink alcohol. PHYSICAL EXAMINATION: VITAL SIGNS: Show blood pressure of 167/58, pulse 57, respirations 18, and temperature 98.6. HEAD AND NECK: Showed no JVD or carotid bruits. LUNGS: Clear. CARDIOVASCULAR: Shows regular S1 and S2 with no gallop or murmur. ABDOMEN: Soft. EXTREMITIES: A 1+ pitting edema. LABORATORY AND DIAGNOSTIC DATA: His labs show white count of 4.3, hemoglobin 7.8, hematocrit 25.5, and platelet count of 138,000. Sodium 139, potassium 5.7, BUN of 111, and creatinine 16.3. His INR is 1.1. ASSESSMENT AND PLAN: 1. Accelerated hypertension with blood pressure up to 220. The patient is on Procardia XL 90 mg daily. I would discontinue amlodipine as the patient is already on a calcium channel freddy. The patient is on lisinopril 10 mg daily that I will increase to 10 mg b.i.d. The patient will be on hydralazine 100 mg every 8 hours as well. I will hold off on beta-freddy in view of mild bradycardia with heart rate in the 50s. 2. Shortness of breath. We will get an echocardiogram for evaluation of ejection fraction and wall motion abnormality. 3. End-stage renal disease, on hemodialysis. 4. Anemia, could be due to anemia of chronic disease and renal failure. Further evaluation by Dr. Parker. Thank you very much for allowing me to participate in the care of this patient. Please do not hesitate to contact me for any questions regarding my evaluation. Filippo Lamb M.D. DR: GUZMAN JOB#: [id number] CC:
--- NOTE | 2019-02-11 19:35 | NUR ---
CASE MANAGEMENT: REVIEW SI: ANEMIA . ESRD ON HD TTS T 97.7 HR 54 RR 18 BP 148/66 SAT 96% ROOM AIR WBC 4.5 H/H 7.8/23.8 K 5.7 BUN 111 CR 16.3 IS: NIFEDIPINE PO QD NORVASC PO QD ASA PO QD CARDURA PO QD EPOETIN SUBQ MWF VENOFER IV QHS 2D ECHO MED/SURG STATUS DCP: PATIENT IS FROM [facility]
--- NOTE | 2019-02-11 19:36 | NUR ---
HAND-OFF: Report given to STAN Moe.
--- NOTE | 2019-02-11 19:40 | NUR ---
NURSE NOTES: Received a report from Jacquelin PIERCE. Pt is in stable condition. AAOX4. Able to make needs known. On room air. No c/o pain/discomfort. IV site is patent and intact. Bed in lowest position. Bed alarm is on. Call light within reach. Will continue to monitor.
[2019-02-11 20:00] VITALS: BP 130/50
[2019-02-11] MEDS: Iron Sucrose 100 MG in NS 55 ML IV SCH (20:35)
[2019-02-11] MEDS: Epoetin Alfa-EPBX(ESRD on dialysis)4000 units/ml vial SUBQ SCH (20:42)
--- NOTE | 2019-02-11 21:00 | NUR ---
NURSE NOTES: Educated the pt that he needs hemodialysis. He said that he does not want the inpatient dialysis here. He wants to get it in the [facility] after discharge. Charge Nurse Renita made aware.
[2019-02-12] VITALS: BP 148/57
[2019-02-12 04:00] VITALS: BP 130/50
[2019-02-12] MEDS: NovoLOG Insulin Flexpen SUBQ SCH ×4 (05:39→21:00)
[2019-02-12] MEDS: HydrALAZINE 50mg tab ORAL SCH ×3 (05:47→22:26)
[2019-02-12] MEDS: Calcium Acetate 667mg Tab ORAL SCH ×3 (05:47→17:31)
--- NOTE | 2019-02-12 07:31 | NUR ---
HAND-OFF: Report given to Michelle Couch RN.
[2019-02-12 08:00] VITALS: BP 126/54
--- NOTE | 2019-02-12 08:40 | NUR ---
NURSE NOTES: Patient is asleep. Side rails are upx2, bed is locked, in lowest position, and call light is within reach. Will continue to monitor.
[2019-02-12] MEDS ORDERED: Lisinopril 10mg tab ORAL SCH (09:25)
[2019-02-12] MEDS: Aspirin Baby 81mg ORAL SCH (09:44)
[2019-02-12] MEDS: Bisacodyl EC 5mg tab ORAL SCH (09:44)
[2019-02-12] MEDS: Doxazosin 4mg tab ORAL SCH (09:44)
[2019-02-12] MEDS: Lomotil 2.5mg tab ORAL SCH (09:44)
[2019-02-12] MEDS: Docusate 100mg cap ORAL SCH (09:44)
[2019-02-12] MEDS: NIFEdipine 10mg cap ORAL SCH (09:44)
[2019-02-12] MEDS: Nephrovite tab (Rena-Vite) ORAL SCH (09:45)
[2019-02-12] MEDS: Nateglinide 60mg tab ORAL SCH ×3 (09:45→17:31)
[2019-02-12 10:16] LABS: EOSINOPHILS % (AUTO) 2.6 % (0.0-3.0); HEMATOCRIT 25.1 % (42.0-52.0); HEMOGLOBIN 8.1 G/DL (14.2-18.0); LYMPHOCYTES % (AUTO) 23.5 % (20.0-45.0); MEAN CORPUSCULAR VOLUME 99 FL (80-99); MONOCYTES % (AUTO) 7.8 % (1.0-10.0); NEUTROPHILS % (AUTO) 65.1 % (45.0-75.0); PLATELET COUNT 139 K/UL (150-450); RED BLOOD COUNT 2.54 M/UL (4.70-6.10); RED CELL DISTRIBUTION WIDTH 16.2 % (11.6-14.8); WHITE BLOOD COUNT 4.2 K/UL (4.8-10.8)
--- NOTE | 2019-02-12 10:25 | Cardiology Report ---
APPROVED REPORT EXAM: Two-dimensional and M-mode echocardiogram with Doppler and color Doppler. INDICATION S.O.B M-Mode DIMENSIONS IVSd1.4 (0.7-1.1cm)Left Atrium (MM)4.7 (1.6-4.0cm) LVDd5.8 (3.5-5.6cm)Aortic Root2.9 (2.0-3.7cm) PWd1.1 (0.7-1.1cm)Aortic Cusp Exc.1.7 (1.5-2.0cm) IVSs1.8 cm LVDs4.4 (2.5-4.0cm) PWs1.4 cm Normal left ventricular chamber size, systolic function and wall motion . Left ventricular ejection fraction estimated to be 55-60 %. Mild left ventricular hypertrophy. No evidence of pericardial effusion. Mild bi-atrial enlargement . Right ventricular chamber sizes is within normal limits. Focal aortic valve sclerosis with adequate cusp excursion. Thickened mitral valve leaflets with normal excursion. Mitral annulus and aortic root calcification. Normal pulmonic valve structure. Normal tricuspid valve structure. IVC dilated at 2.5 cm without physiologic collapse suggestive of increased RA pressure. A color flow and spectral Doppler study was performed and revealed: Trace aortic insufficiency. Mild to moderate mitral regurgitation. Mitral inflow velocities indicates possible pseudo normalization pattern implying moderately elevated left atrial pressure (Grade II ) Mild tricuspid regurgitation. Tricuspid systolic velocities suggests peak right ventricular systolic pressure of 74 mmHg,consistent severe pulmonary HTN . Pulmonic regurgitation present .
--- NOTE | 2019-02-12 10:32 | Diagnostic Imaging Report ---
ULTRASOUND OF THE ABDOMEN - COMPLETE Indication: Elevated LFTs. Technique: Ultrasound of the abdomen. Comparison: None Findings: Liver: The liver is normal in size and echogenicity. No focal abnormalities are noted. There is small volume ascites. Portal vein is patent but demonstrates pulsatile flow. Gallbladder: The gallbladder is normal. No stones are visualized. The wall is not thickened. There is no sonographic Jimenez sign. Common bile duct: Normal in size, measuring 2 mm. Pancreas: There is a 1.9 x 2.1 cm well-circumscribed hypoechoic structure within the head of the pancreas. Kidneys: The kidneys are normal in size. Both kidneys demonstrate increased echogenicity. There is no hydronephrosis. There is a nonobstructing 5 mm right lower pole calculus. . There are two 5 mm nonobstructing left renal calculi. Subcentimeter left renal cyst. Spleen: The spleen is normal in size and echogenicity. Aorta: The aorta is normal in caliber. Other findings: Small bilateral pleural effusions. Impression: 1. 1.9 x 2.1 structure in the pancreatic head which may represent pancreatic head mass. Follow-up with CT or MRI pancreas protocol is recommended. 2. Bilateral nephrolithiasis without hydronephrosis. 3. Echogenic kidneys, which can be seen in renal parenchymal disease. 4. Pulsatile portal venous flow, which can be associated with right heart dysfunction or underlying structural liver dysfunction. 5. Small volume ascites and bilateral pleural effusions.
[2019-02-12 10:52] LABS: ANION GAP 21 mmol/L (5-15); BLOOD UREA NITROGEN 123 mg/dL (7-18); CALCIUM 9.4 MG/DL (8.5-10.1); CARBON DIOXIDE 14 MMOL/L (21-32); CHLORIDE 105 MMOL/L (98-107); POTASSIUM 5.9 MMOL/L (3.5-5.1); SODIUM 139 MMOL/L (136-145)
--- NOTE | 2019-02-12 10:55 | General Progress Note ---
Assessment/Plan Assessment/Plan: S: I am ok O: limited verbal communication. Hard hearing. Seems comfortable, denies any CP or SOB PHYSICAL EXAMINATION:HEAD AND NECK: Atraumatic and normocephalic. CHEST: Clear to auscultation.HEART: S1, S2. Regular rate and rhythm. ABDOMEN: Soft. No organomegaly.MUSCULOSKELETAL: Positive for the AV shunts placed on the left upper extremity. Otherwise, unremarkable.NEUROLOGY: Awake, alert, and oriented x3. IMAGING: None. LABORATORY DATA: Labs dated February 11 reviewed ASSESSMENT AND PLAN: 1. Hypertensive emergency. 2. Acute anemia based on the outside hemoglobin number of below 7.7. 3. End-stage renal disease, on hemodialysis. 4. Hypertension. 5. Diabetes. 6. GI and DVT prophylaxis. 7. Refusal of HD PLAN OF CARE: HD management per Dr Tamayo Will optimize BP medication Refusal of HD at this time Pending Psych input, Dr Patino, consulted Subjective Allergies: Coded Allergies: No Known Allergies (Unverified , 02/08/19) Objective Last 24 Hour Vital Signs Date Time Temp Pulse Resp B/P (MAP) Pulse Ox O2 Delivery O2 Flow Rate FiO2 02/12/19 09:45 126/54 02/12/19 09:44 66 126/54 02/12/19 09:44 66 126/54 02/12/19 08:30 Room Air 02/12/19 08:00 98.8 66 19 126/54 (78) 97 02/12/19 05:47 130/50 02/12/19 04:00 97.9 63 20 130/50 (76) 95 02/12/19 00:00 97.2 55 20 148/57 (87) 98 02/11/19 21:32 130/50 02/11/19 21:00 Room Air 02/11/19 20:00 97.2 55 20 130/50 (76) 97 02/11/19 16:00 97.7 54 18 135/51 (79) 96 02/11/19 15:13 148/66 02/11/19 12:13 67 148/66 02/11/19 12:12 148/66 02/11/19 12:11 67 148/66 02/11/19 12:00 98.2 67 18 148/66 (93) 97 Intake and Output 02/11/19 02/12/19 19:00 07:00 Intake Total 600 ml 60 ml Balance 600 ml 60 ml Intake Oral 600 ml IV Total 60 ml # Voids 5 3 Laboratory Tests 02/11/19 11:15: Troponin I 0.022 02/11/19 11:30: Stool Occult Blood [Pending] 02/11/19 15:05: White Blood Count 4.5L, Red Blood Count 2.51L, Hemoglobin 7.8L, Hematocrit 23.8L , Mean Corpuscular Volume 95, Mean Corpuscular Hemoglobin 31.3H, Mean Corpuscular Hemoglobin Concent 33.0, Red Cell Distribution Width 15.3H, Platelet Count 126L, Mean Platelet Volume 5.9L, Neutrophils (%) (Auto) , Lymphocytes (%) (Auto) , Monocytes (%) (Auto) , Eosinophils (%) (Auto) , Basophils (%) (Auto) , Differential Total Cells Counted 100, Neutrophils % ( Manual) 74, Lymphocytes % (Manual) 15L, Monocytes % (Manual) 8, Eosinophils % ( Manual) 2, Basophils % (Manual) 1, Band Neutrophils 0, Platelet Estimate DecreasedL, Platelet Morphology Normal, Hypochromasia 3+, Anisocytosis 1+ 02/11/19 18:43: Troponin I 0.030 02/12/19 09:35: White Blood Count 4.2L, Red Blood Count 2.54L, Hemoglobin 8.1L, Hematocrit 25.1L , Mean Corpuscular Volume 99, Mean Corpuscular Hemoglobin 31.7H, Mean Corpuscular Hemoglobin Concent 32.1, Red Cell Distribution Width 16.2H, Platelet Count 139L, Mean Platelet Volume 6.3L, Neutrophils (%) (Auto) 65.1, Lymphocytes (%) (Auto) 23.5, Monocytes (%) (Auto) 7.8, Eosinophils (%) (Auto) 2.6, Basophils (%) (Auto) 1.0, Sodium Level [Pending], Potassium Level [Pending] , Chloride Level [Pending], Carbon Dioxide Level [Pending], Blood Urea Nitrogen [Pending], Creatinine [Pending], Estimat Glomerular Filtration Rate [Pending], Glucose Level [Pending], Calcium Level [Pending], Troponin I 0.011 Height (Feet): 5 Height (Inches): 8.00 Weight (Pounds): 180 Peter Parker MD Feb 12, 2019 10:55
[2019-02-12 12:00] VITALS: BP 114/43
[2019-02-12 16:00] VITALS: BP 120/46
--- NOTE | 2019-02-12 16:26 | Cardiac Electrophysiology PN ---
Assessment/Plan Assessment/Plan 1. Accelerated hypertension with blood pressure up to 220. The patient is on Procardia XL 90 mg daily, lisinopril 10 mg daily and hydralazine 100 mg every 8 hours as well. I will hold off on beta-freddy in view of mild bradycardia with heart rate in the 50s. DC Norvasc as is on Procardia already 2. Shortness of breath. EF 60% 3. End-stage renal disease, on hemodialysis.Refusing HD now! 4. Anemia, could be due to anemia of chronic disease and renal failure. Further evaluation by Dr. Parker. WALI RN Subjective Subjective Alert in NAD. Still refusing HD Objective Last 24 Hour Vital Signs Date Time Temp Pulse Resp B/P (MAP) Pulse Ox O2 Delivery O2 Flow Rate FiO2 02/12/19 14:00 105/41 02/12/19 12:00 98.1 64 18 114/43 (66) 95 02/12/19 09:45 126/54 02/12/19 09:44 66 126/54 02/12/19 09:44 66 126/54 02/12/19 08:30 Room Air 02/12/19 08:00 98.8 66 19 126/54 (78) 97 02/12/19 05:47 130/50 02/12/19 04:00 97.9 63 20 130/50 (76) 95 02/12/19 00:00 97.2 55 20 148/57 (87) 98 02/11/19 21:32 130/50 02/11/19 21:00 Room Air 02/11/19 20:00 97.2 55 20 130/50 (76) 97 Intake and Output 02/11/19 02/12/19 19:00 07:00 Intake Total 600 ml 60 ml Balance 600 ml 60 ml Intake Oral 600 ml IV Total 60 ml # Voids 5 3 Laboratory Tests Test 02/11/19 18:43 02/12/19 09:35 Troponin I 0.030 ng/mL (0.000-0.056) 0.011 ng/mL (0.000-0.056) White Blood Count 4.2 K/UL (4.8-10.8) L Red Blood Count 2.54 M/UL (4.70-6.10) L Hemoglobin 8.1 G/DL (14.2-18.0) L Hematocrit 25.1 % (42.0-52.0) L Mean Corpuscular Volume 99 FL (80-99) Mean Corpuscular Hemoglobin 31.7 PG (27.0-31.0) H Mean Corpuscular Hemoglobin Concent 32.1 G/DL (32.0-36.0) Red Cell Distribution Width 16.2 % (11.6-14.8) H Platelet Count 139 K/UL (150-450) L Mean Platelet Volume 6.3 FL (6.5-10.1) L Neutrophils (%) (Auto) 65.1 % (45.0-75.0) Lymphocytes (%) (Auto) 23.5 % (20.0-45.0) Monocytes (%) (Auto) 7.8 % (1.0-10.0) Eosinophils (%) (Auto) 2.6 % (0.0-3.0) Basophils (%) (Auto) 1.0 % (0.0-2.0) Sodium Level 139 MMOL/L (136-145) Potassium Level 5.9 MMOL/L (3.5-5.1) H Chloride Level 105 MMOL/L (98-107) Carbon Dioxide Level 14 MMOL/L (21-32) L Anion Gap 21 mmol/L (5-15) H Blood Urea Nitrogen 123 mg/dL (7-18) H Creatinine 18.0 MG/DL (0.55-1.30) H Estimat Glomerular Filtration Rate 2.7 mL/min (>60) Glucose Level 68 MG/DL (74-106) L Calcium Level 9.4 MG/DL (8.5-10.1) Objective HEAD AND NECK: Showed no JVD or carotid bruits. LUNGS: Clear. CARDIOVASCULAR: Shows regular S1 and S2 with no gallop or murmur. ABDOMEN: Soft. EXTREMITIES: A 1+ pitting edema. Filippo Lamb MD Feb 12, 2019 16:26
--- NOTE | 2019-02-12 17:32 | History & Physical ---
History of Present Illness General Reason for Hospitalization: Abnormal Labs Present Illness Allergies: Coded Allergies: No Known Allergies (Unverified , 02/08/19) Medication History Scheduled Amlodipine Besylate* (Amlodipine Besylate*), 10 MG ORAL DAILY, (Reported) Aspirin* (Aspirin*), 81 MG ORAL DAILY, (Reported) Atorvastatin Calcium* (Lipitor*), 10 MG ORAL BEDTIME Bisacodyl* (Dulcolax*), 5 MG ORAL DAILY, (Reported) Docusate Sodium* (Docusate Sodium*), 100 MG ORAL DAILY, (Reported) Doxazosin Mesylate (Doxazosin Mesylate), 8 MG ORAL DAILY, (Reported) Folic Acid* (Folic Acid*), 1 MG ORAL DAILY, (Reported) Gabapentin* (Gabapentin*), 100 MG ORAL THREE TIMES A DAY, (Reported) Hydralazine Hcl* (Hydralazine Hcl*), 100 MG ORAL EVERY 8 HOURS, (Reported) Linagliptin (Tradjenta), 5 MG PO DAILY, (Reported) Lisinopril (Lisinopril*), 10 MG ORAL DAILY, (Reported) Nateglinide* (Starlix*), 60 MG ORAL THREE TIMES A DAY, (Reported) Nifedipine (Nifedipine*), 90 MG ORAL DAILY, (Reported) Sevelamer Hcl (Renagel), 800 MG ORAL THREE TIMES A DAY, (Reported) Vitamin B Cmplx/Vit C/Folic AC (Nephro-Lenan Tablet), 1 TAB ORAL DAILY, (Reported ) Scheduled PRN Hydrocodone Bit/Acetaminophen 5-325* ([place] 5-325*), 1 TAB ORAL Q6H PRN Miscellaneous Medications Calcium Acetate (Calcium Acetate), 668 MG PO, (Reported) Linagliptin (Tradjenta), 5 MG PO, (Reported) Minoxidil (Minoxidil), 2.5 MG PO, (Reported) Vit D3/Folic Acid/B2/B6/B12 (Folgard Tablet), 1 EACH PO, (Reported) Discontinued Medications Heparin Sod (Porcine) (Heparin Sodium*), 5,000 UNITS SUBQ EVERY 12 HOURS Discontinued Reason: discontinued med Nifedipine Xl* (Procardia Xl*), 90 MG ORAL DAILY Discontinued Reason: discontinued med Patient History Healthcare decision maker Resuscitation status Advanced Directive on File Review of Systems Review of Symptoms General ROS: no weight loss or fever Psychological ROS: no depression or mood changes, no memory loss Ophthalmic ROS: no visual changes or eye irritation ENT ROS: no nasal congestion, hearing loss, dizziness Allergy and Immunology ROS: no allergic symptoms or urticaria Hematological and Lymphatic ROS: no swollen glands, unusual bleeding or bruising Endocrine ROS: no polyuria, polydipsia, weight changes, temperature intolerance Respiratory ROS: no cough, shortness of breath, or wheezing Cardiovascular ROS: no chest pain or dyspnea on exertion Gastrointestinal ROS: denies abdominal pain, bright red blood in stool, decreased appetite Musculoskeletal ROS: no myalgias or arthralgias Neurological ROS: no TIA or stroke symptoms Dermatological ROS: no new or changing skin lesions, rashes or pruritis Physical Exam Physical Exam General appearance: alert, cooperative, no distress, appears stated age Head: Normocephalic, without obvious abnormality, atraumatic Eyes: conjunctivae/corneas clear. PERRL, EOM's intact. Fundi benign Throat: Lips, mucosa, and tongue normal. Teeth and gums normal Neck: supple, symmetrical, trachea midline, no adenopathy, thyroid: not enlarged, symmetric, no tenderness/mass/nodules, no carotid bruit and no JVD Lungs: clear to auscultation bilaterally Heart: regular rate and rhythm, S1, S2 normal, no murmur, click, rub or gallop Abdomen: soft, non-tender. Bowel sounds normal. No masses, no organomegaly Extremities: extremities normal, atraumatic, no cyanosis or edema Pulses: 2+ and symmetric Skin: Skin color, texture, turgor normal. No rashes or lesions Neurologic: Grossly normal Last 24 Hour Vital Signs Date Time Temp Pulse Resp B/P (MAP) Pulse Ox O2 Delivery O2 Flow Rate FiO2 02/12/19 16:00 98.5 68 18 120/46 (70) 96 02/12/19 14:00 105/41 02/12/19 12:00 98.1 64 18 114/43 (66) 95 02/12/19 09:45 126/54 02/12/19 09:44 66 126/54 02/12/19 09:44 66 126/54 02/12/19 08:30 Room Air 02/12/19 08:00 98.8 66 19 126/54 (78) 97 8/13/19 05:47 130/50 02/12/19 04:00 97.9 63 20 130/50 (76) 95 02/12/19 00:00 97.2 55 20 148/57 (87) 98 02/11/19 21:32 130/50 02/11/19 21:00 Room Air 02/11/19 20:00 97.2 55 20 130/50 (76) 97 Intake and Output 02/11/19 02/12/19 19:00 07:00 Intake Total 600 ml 60 ml Balance 600 ml 60 ml Intake Oral 600 ml IV Total 60 ml # Voids 5 3 Laboratory Tests Test 02/11/19 18:43 02/12/19 09:35 Troponin I 0.030 ng/mL (0.000-0.056) 0.011 ng/mL (0.000-0.056) White Blood Count 4.2 K/UL (4.8-10.8) L Red Blood Count 2.54 M/UL (4.70-6.10) L Hemoglobin 8.1 G/DL (14.2-18.0) L Hematocrit 25.1 % (42.0-52.0) L Mean Corpuscular Volume 99 FL (80-99) Mean Corpuscular Hemoglobin 31.7 PG (27.0-31.0) H Mean Corpuscular Hemoglobin Concent 32.1 G/DL (32.0-36.0) Red Cell Distribution Width 16.2 % (11.6-14.8) H Platelet Count 139 K/UL (150-450) L Mean Platelet Volume 6.3 FL (6.5-10.1) L Neutrophils (%) (Auto) 65.1 % (45.0-75.0) Lymphocytes (%) (Auto) 23.5 % (20.0-45.0) Monocytes (%) (Auto) 7.8 % (1.0-10.0) Eosinophils (%) (Auto) 2.6 % (0.0-3.0) Basophils (%) (Auto) 1.0 % (0.0-2.0) Sodium Level 139 MMOL/L (136-145) Potassium Level 5.9 MMOL/L (3.5-5.1) H Chloride Level 105 MMOL/L (98-107) Carbon Dioxide Level 14 MMOL/L (21-32) L Anion Gap 21 mmol/L (5-15) H Blood Urea Nitrogen 123 mg/dL (7-18) H Creatinine 18.0 MG/DL (0.55-1.30) H Estimat Glomerular Filtration Rate 2.7 mL/min (>60) Glucose Level 68 MG/DL (74-106) L Calcium Level 9.4 MG/DL (8.5-10.1) Height (Feet): 5 Height (Inches): 8.00 Weight (Pounds): 180 Medications Current Medications Medications (Trade) Dose Ordered Sig/Anne Route PRN Reason Start Time Stop Time Status Last Admin Dose Admin Acetaminophen/ Hydrocodone Bitart ([place] 5/325) 1 tab Q6H PRN ORAL pain 02/08/19 21:30 02/15/19 21:29 Aspirin (ASA) 81 mg DAILY ORAL 02/09/19 09:00 03/11/19 08:59 02/12/19 09:44 Atorvastatin Calcium (Lipitor) 10 mg BEDTIME ORAL 02/09/19 21:00 03/11/19 20:59 02/11/19 20:34 Bisacodyl (Dulcolax) 5 mg DAILY ORAL 02/09/19 09:00 03/11/19 08:59 02/12/19 09:44 Calcium Acetate (Phoslo) 667 mg TIAC ORAL 02/09/19 06:30 03/11/19 06:29 02/12/19 12:25 Clonidine HCl (Catapres Tab) 0.1 mg Q2H PRN ORAL FOR SBP>170 02/11/19 09:45 03/13/19 09:44 Dextrose (Dextrose 50%) 25 ml Q30M PRN IV Hypoglycemia 02/08/19 20:30 03/10/19 20:29 Dextrose (Dextrose 50%) 50 ml Q30M PRN IV Hypoglycemia 02/08/19 20:30 03/10/19 20:29 Diphenoxylate HCl/ Atropine (Lomotil) 2.5 mg DAILY ORAL 02/09/19 09:00 03/11/19 08:59 02/12/19 09:44 Docusate Sodium (Colace) 100 mg DAILY ORAL 02/09/19 09:00 03/11/19 08:59 02/12/19 09:44 Doxazosin Mesylate (Cardura) 8 mg DAILY ORAL 02/09/19 09:00 03/11/19 08:59 02/12/19 09:44 Epoetin Serafin (Epoetin Serafin(ESRD on dialysis)) 8,000 unit MON- SUBQ 02/08/19 22:00 03/10/19 21:59 02/08/19 22:32 Folic Acid (Folate) 1 mg DAILY ORAL 02/09/19 09:00 03/11/19 08:59 02/12/19 09:45 Gabapentin (Neurontin) 100 mg DAILY ORAL 02/09/19 09:00 03/11/19 08:59 02/12/19 09:44 Hydralazine HCl (Apresoline) 100 mg Q8HR ORAL 02/08/19 22:00 03/10/19 21:59 02/12/19 05:47 Insulin Aspart (NovoLOG) BEFORE MEALS AND HS SUBQ 02/08/19 22:00 03/10/19 21:59 Iron Sucrose 100 mg/Sodium Chloride 60 ml @ 240 mls/hr BEDTIME IV 02/08/19 22:00 02/12/19 21:14 02/11/19 20:35 Lisinopril (Zestril) 10 mg DAILY ORAL 02/12/19 09:25 03/14/19 09:24 02/12/19 09:45 Nateglinide (Starlix) 60 mg THREE TIMES A DAY ORAL 02/09/19 09:00 03/11/19 08:59 02/12/19 12:25 Nifedipine (Adalat) 90 mg DAILY ORAL 02/09/19 09:00 03/11/19 08:59 02/12/19 09:44 Pantoprazole (Protonix) 40 mg DAILY ORAL 02/09/19 09:00 03/11/19 08:59 02/12/19 09:53 Sevelamer Carbonate (Renvela) 800 mg THREE TIMES A DAY ORAL 02/09/19 09:00 03/11/19 08:59 02/12/19 12:26 Vitamin B Complex/ Vit C/Folic Acid (Nephrovite) 1 tab DAILY ORAL 02/09/19 09:00 03/11/19 08:59 02/12/19 09:45 Assessment/Plan Status: stable Status Narrative This is a 63 year old male with ESRD, who has not been going to dialysis. He is refusing HD here and states he will go to his own HD Center. Psych consul has been placed. Awaiting results. Assessment/Plan: Neuro: A&Ox4 HEENT: atraum head, PERRLA, mouth/nose pink/moist atraumatic, throat supple CVS: RRR Lungs: lower lobe rhonchi Abd: no TTP, no organomegaly GI/: denies N/V/D/C, reports decreased appetite Extremities: not edematous (refused further assessments) [facility] Hospital declaration INPATIENT level of care is warranted for this patient because patient is a 89 year old with who presents with suspicion of . I have a high level of concern because . Patient is at high risk for . Plan of care/treatment include . Patient care is expected to be greater than 2 midnights. OBSERVATION level of care is warranted for this patient. Patient is a 89 year old with who presents with . Patient will be admitted for 1 midnight, but if additional night(s) is/are necessary, patient will be converted to inpatient status for the entire hospitalization Disposition: Once the patient is stable to leave the hospital, I anticipate the patient will likely be discharged to the following environment: Estimated discharge date: I spent 70 minutes on this patient's case, and minutes was dedicated to counseling and/or care coordination. MIPS (Merit-based Incentive Payment System) Applicable CPT: 93734, 55676 CHECK ALL THAT ARE MET: Measure #5 (CHF): All ages. Prescribe OCTAVIANO/ARB upon discharge for patients with left ventricular systolic dysfunction. If not, the reason is clearly documented in the medical chart. Measure #8 (CHF): All ages. Prescribe a beta freddy upon discharge for patients with left ventricular systolic dysfunction. If not, the reason is clearly documented in the medical chart. Measure #47 Advance care plan or surrogate decision maker documented in the medical record. Measure #130 The provider has documented, updated, or reviewed the patients current medication list and has documented it in the patients note. Measure #374 (All): Send report to referring provider. Measure #407(Sepsis due to MSSA bacteremia): Age 18+ Patient treated with a beta-lactam antibiotic (Nafcillin, Oxacillin or Cefazolin) as definitive therapy. MEDICAL COMPLEXITY High complexity medical decision making (need 2/3 categories) Problem - need 4 points Acute/new problem with new plan for workup (4 points, 1 max) Acute/new problem without additional workup (3 points, 1 max) Unstable chronic problem actively being managed (2 point each, 2 max) Stable chronic problem actively being managed (1 point each, 2 max) Self-limited/transient process (constipation, muscle ache, etc) (1 point each , 2 max) Data - need 4 points Reviewed labs/imaging studies (1 points, 2 max) Independent review of imaging (EKG, xrays, etc) (2 points, 2 max) Discussed case with consult/other MD/RN (2 points, 2 max) High Risk - qualify if have one of the following: Severe exacerbation of acute problem, acute mental status change, IV narcotics , monitoring drug levels (vancomycin, INR, tacrolimus etc) Ally Moran N.P. Feb 12, 2019 17:32
--- NOTE | 2019-02-12 18:43 | NUR ---
NURSE NOTES: Patient's labs reported to Dr. 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 Patient refusing hemodialysis as inpatient. Patient reports that he does not want hemodialysis in hospital. Patient reports he wants hemodialysis at his usual hemodialysis center. Dr. Parker notified. New order received to discharge patient.
--- NOTE | 2019-02-12 19:30 | NUR ---
HAND-OFF: Report given to Michelle Cheema RN.
--- NOTE | 2019-02-12 19:30 | NUR ---
NURSE NOTES: Received a report from Michelle Couch RN. Pt is in stable condition. AAOX4. Able to make needs known. On room air. No c/o pain/discomfort. IV site is patent and intact. Bed in lowest position. Bed alarm is on. Call light within reach. Will continue to monitor.
[2019-02-12 20:00] VITALS: BP 156/50
--- NOTE | 2019-02-12 20:15 | Hematology/Onc Progress Note ---
Assessment/Plan Assessment/Plan # Anemia of chronic disease due to underlying chronic medical issues, multifactorial, CKD --> Anemia workup has been ordered, rule out gi bleed --> No evidence of hemolysis is noted, peripheral smear has been reviewed. --> Hgb goal >7. Transfuse prn. --> Epogen or ironat this time not indicated unless h/h lower may need epo, ferritin is >900 --> Medications have been reviewed --> low threshold for gi evaluation in case has occult + --> bone marrow biopsy is not indicated given the other more likely causes --> hgb trend 7.8-->8.1 # Anemia of kidney disease --> currently on epo and iron --> hgb goal is >7 # Pancreatic head mass, 1.9 x 2.1 structure in the pancreatic head which may represent pancreatic head mass. Follow-up with CT or MRI pancreas protocol is recommended. --> have ordered a ct scan, can be done as outpatient --> ideally would recommend iv contrast but must be removed with contrast --> gi eval as outpatient as well # Leukopenia -- multiple etiologies could be related to underlying liver disease , medication-induced, infection versus viral syndrome --> peripheral smear has been ordered and does not show significant abnormalities --> Medications have been reviewed --> Continue to monitor for improvement, trend cbc --> Hiv is negative, hep negative --> US abd ordered to r/o cirrhosis and hepatosplenomegaly (PEND) --> reverse isolation if ANC is <2000 --> Give neupogen if ANC <1000 # ESRD has been refusing hd --> renal aware and discussing with pt The timing of this note does not necessarily reflect the time of the patient was seen. Greatly appreciate consultation! Subjective Constitutional: Denies: no symptoms, chills, fever, malaise, weakness, other HEENT: Denies: no symptoms, eye pain, blurred vision, tearing, double vision, ear pain, ear discharge, nose pain, nose congestion, throat pain, throat swelling, mouth pain, mouth swelling, other Cardiovascular: Denies: no symptoms, chest pain, edema, irregular heart rate, lightheadedness, palpitations, syncope, other Respiratory: Denies: no symptoms, cough, shortness of breath, SOB with excertion, SOB at rest, sputum, wheezing, other Genitourinary: Denies: no symptoms, burning, discharge, frequency, flank pain, hematuria, incontinence, pain, urgency, other Endocrine: Denies: no symptoms, excessive sweating, flushing, intolerance to cold, intolerance to heat, increased hunger, increased thirst, increased urine, unexplained weight gain, unexplained weight loss, other Allergies: Coded Allergies: No Known Allergies (Unverified , 02/08/19) Subjective 02/11:no events to report, no f/c, no night sweats, needs hd, psych eval 02/12: still refuisng hd, labs have been reviewed, no f/c Objective Objective Current Medications Medications (Trade) Dose Ordered Sig/Anne Route PRN Reason Start Time Stop Time Status Last Admin Dose Admin Acetaminophen/ Hydrocodone Bitart ([place] 5/325) 1 tab Q6H PRN ORAL pain 02/08/19 21:30 02/15/19 21:29 Aspirin (ASA) 81 mg DAILY ORAL 02/09/19 09:00 03/11/19 08:59 02/12/19 09:44 Atorvastatin Calcium (Lipitor) 10 mg BEDTIME ORAL 02/09/19 21:00 03/11/19 20:59 02/11/19 20:34 Bisacodyl (Dulcolax) 5 mg DAILY ORAL 02/09/19 09:00 03/11/19 08:59 02/12/19 09:44 Calcium Acetate (Phoslo) 667 mg TIAC ORAL 02/09/19 06:30 03/11/19 06:29 02/12/19 17:31 Clonidine HCl (Catapres Tab) 0.1 mg Q2H PRN ORAL FOR SBP>170 02/11/19 09:45 03/13/19 09:44 Dextrose (Dextrose 50%) 25 ml Q30M PRN IV Hypoglycemia 02/08/19 20:30 03/10/19 20:29 Dextrose (Dextrose 50%) 50 ml Q30M PRN IV Hypoglycemia 02/08/19 20:30 03/10/19 20:29 Diphenoxylate HCl/ Atropine (Lomotil) 2.5 mg DAILY ORAL 02/09/19 09:00 03/11/19 08:59 02/12/19 09:44 Docusate Sodium (Colace) 100 mg DAILY ORAL 02/09/19 09:00 9/9/19 08:59 02/12/19 09:44 Doxazosin Mesylate (Cardura) 8 mg DAILY ORAL 02/09/19 09:00 03/11/19 08:59 02/12/19 09:44 Epoetin Serafin (Epoetin Serafin(ESRD on dialysis)) 8,000 unit MON- SUBQ 02/08/19 22:00 03/10/19 21:59 02/08/19 22:32 Folic Acid (Folate) 1 mg DAILY ORAL 02/09/19 09:00 03/11/19 08:59 02/12/19 09:45 Gabapentin (Neurontin) 100 mg DAILY ORAL 02/09/19 09:00 03/11/19 08:59 02/12/19 09:44 Hydralazine HCl (Apresoline) 100 mg Q8HR ORAL 02/08/19 22:00 03/10/19 21:59 02/12/19 05:47 Insulin Aspart (NovoLOG) BEFORE MEALS AND HS SUBQ 02/08/19 22:00 03/10/19 21:59 Iron Sucrose 100 mg/Sodium Chloride 60 ml @ 240 mls/hr BEDTIME IV 02/08/19 22:00 02/12/19 21:14 02/11/19 20:35 Lisinopril (Zestril) 10 mg DAILY ORAL 02/12/19 09:25 03/14/19 09:24 02/12/19 09:45 Nateglinide (Starlix) 60 mg THREE TIMES A DAY ORAL 02/09/19 09:00 03/11/19 08:59 02/12/19 17:31 Nifedipine (Adalat) 90 mg DAILY ORAL 02/09/19 09:00 03/11/19 08:59 02/12/19 09:44 Pantoprazole (Protonix) 40 mg DAILY ORAL 02/09/19 09:00 03/11/19 08:59 02/12/19 09:53 Sevelamer Carbonate (Renvela) 800 mg THREE TIMES A DAY ORAL 02/09/19 09:00 03/11/19 08:59 02/12/19 17:31 Vitamin B Complex/ Vit C/Folic Acid (Nephrovite) 1 tab DAILY ORAL 02/09/19 09:00 03/11/19 08:59 02/12/19 09:45 Last 24 Hour Vital Signs Date Time Temp Pulse Resp B/P (MAP) Pulse Ox O2 Delivery O2 Flow Rate FiO2 02/12/19 16:00 98.5 68 18 120/46 (70) 96 02/12/19 14:00 105/41 02/12/19 12:00 98.1 64 18 114/43 (66) 95 02/12/19 09:45 126/54 02/12/19 09:44 66 126/54 02/12/19 09:44 66 126/54 02/12/19 08:30 Room Air 02/12/19 08:00 98.8 66 19 126/54 (78) 97 02/12/19 05:47 130/50 02/12/19 04:00 97.9 63 20 130/50 (76) 95 02/12/19 00:00 97.2 55 20 148/57 (87) 98 02/11/19 21:32 130/50 02/11/19 21:00 Room Air 02/11/19 20:00 97.2 55 20 130/50 (76) 97 02/11/19 16:00 97.7 54 18 135/51 (79) 96 02/11/19 15:13 148/66 02/11/19 12:13 67 148/66 02/11/19 12:12 148/66 02/11/19 12:11 67 148/66 02/11/19 12:00 98.2 67 18 148/66 (93) 97 02/11/19 09:00 Room Air 02/11/19 08:00 97.1 86 21 116/73 (87) 97 02/11/19 05:43 167/58 02/11/19 04:00 98.6 57 18 167/58 (94) 94 02/10/19 21:21 151/56 02/10/19 21:00 Room Air Intake and Output 02/11/19 02/12/19 19:00 07:00 Intake Total 600 ml 60 ml Balance 600 ml 60 ml Intake Oral 600 ml IV Total 60 ml # Voids 5 3 Labs Test 02/10/19 06:40 02/10/19 06:42 02/11/19 05:40 02/11/19 11:15 White Blood Count 4.6 K/UL (4.8-10.8) 4.3 K/UL (4.8-10.8) Red Blood Count 2.59 M/UL (4.70-6.10) 2.53 M/UL (4.70-6.10) Hemoglobin 8.0 G/DL (14.2-18.0) 7.8 G/DL (14.2-18.0) Hematocrit 25.5 % (42.0-52.0) 25.2 % (42.0-52.0) Mean Corpuscular Volume 99 FL (80-99) 99 FL (80-99) Mean Corpuscular Hemoglobin 31.1 PG (27.0-31.0) 31.0 PG (27.0-31.0) Mean Corpuscular Hemoglobin Concent 31.4 G/DL (32.0-36.0) 31.1 G/DL (32.0-36.0) Red Cell Distribution Width 16.7 % (11.6-14.8) 16.1 % (11.6-14.8) Platelet Count 155 K/UL (150-450) 138 K/UL (150-450) Mean Platelet Volume 6.2 FL (6.5-10.1) 6.5 FL (6.5-10.1) Neutrophils (%) (Auto) 72.8 % (45.0-75.0) % (45.0-75.0) Lymphocytes (%) (Auto) 14.9 % (20.0-45.0) % (20.0-45.0) Monocytes (%) (Auto) 7.6 % (1.0-10.0) % (1.0-10.0) Eosinophils (%) (Auto) 3.6 % (0.0-3.0) % (0.0-3.0) Basophils (%) (Auto) 1.2 % (0.0-2.0) % (0.0-2.0) Differential Total Cells Counted 100 100 Neutrophils % (Manual) 75 % (45-75) 68 % (45-75) Lymphocytes % (Manual) 14 % (20-45) 23 % (20-45) Monocytes % (Manual) 6 % (1-10) 5 % (1-10) Eosinophils % (Manual) 4 % (0-3) 4 % (0-3) Basophils % (Manual) 1 % (0-2) 0 % (0-2) Band Neutrophils 0 % (0-8) 0 % (0-8) Other Cell Type Ist review Platelet Estimate Adequate Decreased Platelet Morphology Normal Normal Hypochromasia 1+ 3+ Anisocytosis 1+ 1+ Sodium Level 139 MMOL/L (136-145) 139 MMOL/L (136-145) Potassium Level 5.4 MMOL/L (3.5-5.1) 5.7 MMOL/L (3.5-5.1) Chloride Level 107 MMOL/L (98-107) 104 MMOL/L (98-107) Carbon Dioxide Level 19 MMOL/L (21-32) 18 MMOL/L (21-32) Anion Gap 13 mmol/L (5-15) 17 mmol/L (5-15) Blood Urea Nitrogen 96 mg/dL (7-18) 111 mg/dL (7-18) Creatinine 14.6 MG/DL (0.55-1.30) 16.3 MG/DL (0.55-1.30) Estimat Glomerular Filtration Rate 3.4 mL/min (>60) 3.0 mL/min (>60) Glucose Level 68 MG/DL (74-106) 76 MG/DL (74-106) Calcium Level 9.4 MG/DL (8.5-10.1) 9.5 MG/DL (8.5-10.1) Total Bilirubin 0.5 MG/DL (0.2-1.0) 0.5 MG/DL (0.2-1.0) Aspartate Amino Transf (AST/SGOT) 6 U/L (15-37) 5 U/L (15-37) Alanine Aminotransferase (ALT/SGPT) 15 U/L (12-78) 14 U/L (12-78) Alkaline Phosphatase 108 U/L (46-116) 108 U/L (46-116) Total Protein 6.8 G/DL (6.4-8.2) 6.9 G/DL (6.4-8.2) Albumin 3.3 G/DL (3.4-5.0) 3.4 G/DL (3.4-5.0) Globulin 3.5 g/dL 3.5 g/dL Albumin/Globulin Ratio 0.9 (1.0-2.7) 1.0 (1.0-2.7) HIV (1&2) Antibody Rapid Negative (NEGATIVE) Iron Level 76 ug/dL (50-175) Total Iron Binding Capacity 183 ug/dL (250-450) Percent Iron Saturation 42 % (15-50) Unsaturated Iron Binding 107 ug/dL (112-346) Ferritin 974 NG/ML (8-388) Vitamin B12 Level 1003 PG/ML (193-986) Folate 61.4 NG/ML (8.6-58.9) Thyroid Stimulating Hormone (TSH) 1.240 uiU/mL (0.358-3.740) Hepatitis A IgM Antibody Negative (Negative) Hepatitis B Surface Antigen Negative (Negative) Hepatitis B Core IgM Antibody Negative (Negative) Hepatitis C Antibody <0.1 s/co ratio Troponin I 0.022 ng/mL (0.000-0.056) Test 02/11/19 11:30 02/11/19 15:05 02/11/19 18:43 02/12/19 09:35 Stool Occult Blood Negative (NEGATIVE) White Blood Count 4.5 K/UL (4.8-10.8) 4.2 K/UL (4.8-10.8) Red Blood Count 2.51 M/UL (4.70-6.10) 2.54 M/UL (4.70-6.10) Hemoglobin 7.8 G/DL (14.2-18.0) 8.1 G/DL (14.2-18.0) Hematocrit 23.8 % (42.0-52.0) 25.1 % (42.0-52.0) Mean Corpuscular Volume 95 FL (80-99) 99 FL (80-99) Mean Corpuscular Hemoglobin 31.3 PG (27.0-31.0) 31.7 PG (27.0-31.0) Mean Corpuscular Hemoglobin Concent 33.0 G/DL (32.0-36.0) 32.1 G/DL (32.0-36.0) Red Cell Distribution Width 15.3 % (11.6-14.8) 16.2 % (11.6-14.8) Platelet Count 126 K/UL (150-450) 139 K/UL (150-450) Mean Platelet Volume 5.9 FL (6.5-10.1) 6.3 FL (6.5-10.1) Neutrophils (%) (Auto) % (45.0-75.0) 65.1 % (45.0-75.0) Lymphocytes (%) (Auto) % (20.0-45.0) 23.5 % (20.0-45.0) Monocytes (%) (Auto) % (1.0-10.0) 7.8 % (1.0-10.0) Eosinophils (%) (Auto) % (0.0-3.0) 2.6 % (0.0-3.0) Basophils (%) (Auto) % (0.0-2.0) 1.0 % (0.0-2.0) Differential Total Cells Counted 100 Neutrophils % (Manual) 74 % (45-75) Lymphocytes % (Manual) 15 % (20-45) Monocytes % (Manual) 8 % (1-10) Eosinophils % (Manual) 2 % (0-3) Basophils % (Manual) 1 % (0-2) Band Neutrophils 0 % (0-8) Platelet Estimate Decreased Platelet Morphology Normal Hypochromasia 3+ Anisocytosis 1+ Troponin I 0.030 ng/mL (0.000-0.056) 0.011 ng/mL (0.000-0.056) Sodium Level 139 MMOL/L (136-145) Potassium Level 5.9 MMOL/L (3.5-5.1) Chloride Level 105 MMOL/L (98-107) Carbon Dioxide Level 14 MMOL/L (21-32) Anion Gap 21 mmol/L (5-15) Blood Urea Nitrogen 123 mg/dL (7-18) Creatinine 18.0 MG/DL (0.55-1.30) Estimat Glomerular Filtration Rate 2.7 mL/min (>60) Glucose Level 68 MG/DL (74-106) Calcium Level 9.4 MG/DL (8.5-10.1) Height (Feet): 5 Height (Inches): 8.00 Weight (Pounds): 180 Objective Physical Exam General Appearance: A+O x3, NAD HEENT: normocephalic, atraumatic Neck: non-tender, normal alignment Respiratory/Chest: chest wall non-tender, lungs clear Cardiovascular/Chest: normal peripheral pulses, normal rate Abdomen: normal bowel sounds, non tender Extremities: normal range of motion Edouard Donald MD Feb 12, 2019 20:15
[2019-02-12] MEDS: Iron Sucrose 100 MG in NS 55 ML IV SCH (22:27)
[2019-02-13] VITALS: BP 131/45
[2019-02-13 04:00] VITALS: BP 119/66
[2019-02-13] MEDS: NovoLOG Insulin Flexpen SUBQ SCH ×2 (05:57→11:30)
[2019-02-13] MEDS: HydrALAZINE 50mg tab ORAL SCH ×2 (06:03→13:14)
[2019-02-13] MEDS: Calcium Acetate 667mg Tab ORAL SCH ×2 (06:03→13:11)
[2019-02-13 07:20] LABS: HEMATOCRIT 24.6 % (42.0-52.0); HEMOGLOBIN 7.9 G/DL (14.2-18.0); MEAN CORPUSCULAR VOLUME 99 FL (80-99); PLATELET COUNT 125 K/UL (150-450); RED CELL DISTRIBUTION WIDTH 17.3 % (11.6-14.8); WHITE BLOOD COUNT 4.5 K/UL (4.8-10.8)
--- NOTE | 2019-02-13 07:27 | NUR ---
HAND-OFF: Report given to Michelle Couch RN.
[2019-02-13 07:35] LABS: ANION GAP 18 mmol/L (5-15); BLOOD UREA NITROGEN 134 mg/dL (7-18); CALCIUM 9.4 MG/DL (8.5-10.1); CARBON DIOXIDE 16 MMOL/L (21-32); CHLORIDE 103 MMOL/L (98-107); CREATININE 18.9 MG/DL (0.55-1.30); POTASSIUM 6.5 MMOL/L (3.5-5.1); SODIUM 137 MMOL/L (136-145)
[2019-02-13 08:00] VITALS: BP 150/56
--- NOTE | 2019-02-13 08:25 | NUR ---
NURSE NOTES: Patient is alert and oriented. No reports of discomfort. Side rails are upx2, bed is locked, in lowest position, and call light is within reach. Patient's potassium this AM 6.5. Dr. Tamayo paged, awaiting call back. Patient still refusing dialysis while in patient. Will continue to monitor.
--- NOTE | 2019-02-13 08:44 | Cardiology Progress Note ---
Assessment/Plan Status: stable Assessment/Plan Assessment/Plan Assessment/Plan 1. Accelerated hypertension with blood pressure up to 220. Continue procardia and hydralazine Add clonidine Hold beta blockers given bradycardia D/c lisinopril given hyperkalemia 2. Shortness of breath. EF 60% 3. End-stage renal disease and hyperkalemia Refusing HD Monitor for arrhythmias EKG daily 4. Anemia, due to anemia of chronic disease and renal failure. Epogen not indicated per hematology Subjective Cardiovascular: Reports: no symptoms Respiratory: Reports: no symptoms Gastrointestinal/Abdominal: Reports: no symptoms Genitourinary: Reports: no symptoms Subjective Coverage for [place] Potassium remains elevated, refuses HD - nephrology aware, otherwise no acute events or distress, vitals stable Objective Last 24 Hour Vital Signs Date Time Temp Pulse Resp B/P (MAP) Pulse Ox O2 Delivery O2 Flow Rate FiO2 02/13/19 06:03 119/66 02/13/19 04:00 96.7 60 18 119/66 (83) 96 02/13/19 00:00 96.8 52 16 131/45 (73) 97 02/12/19 22:26 156/50 02/12/19 21:00 Room Air 02/12/19 20:00 97.1 61 14 156/50 (85) 93 02/12/19 16:00 98.5 68 18 120/46 (70) 96 02/12/19 14:00 105/41 02/12/19 12:00 98.1 64 18 114/43 (66) 95 02/12/19 09:45 126/54 02/12/19 09:44 66 126/54 02/12/19 09:44 66 126/54 General Appearance: no apparent distress, alert EENT: PERRL/EOMI, normal ENT inspection, TMs normal, pharynx normal Neck: non-tender, normal alignment, supple, normal inspection, no JVD Rhythm: NSR Cardiovascular: normal peripheral pulses, normal rate Respiratory/Chest: chest wall non-tender, lungs clear, normal breath sounds Abdomen: normal bowel sounds, non tender, soft, no organomegaly Extremities: normal range of motion, non-tender, normal inspection Neurologic: color strainer II-XII grossly normal, no motor/sensory deficits, alert, oriented x 3, responsive Intake and Output 02/12/19 02/13/19 19:00 07:00 Intake Total 880 ml Balance 880 ml Intake Oral 880 ml # Voids 5 3 # Bowel Movements 1 Laboratory Tests Test 02/12/19 09:35 02/13/19 05:31 White Blood Count 4.2 K/UL (4.8-10.8) L 4.5 K/UL (4.8-10.8) L Red Blood Count 2.54 M/UL (4.70-6.10) L 2.50 M/UL (4.70-6.10) L Hemoglobin 8.1 G/DL (14.2-18.0) L 7.9 G/DL (14.2-18.0) L Hematocrit 25.1 % (42.0-52.0) L 24.6 % (42.0-52.0) L Mean Corpuscular Volume 99 FL (80-99) 99 FL (80-99) Mean Corpuscular Hemoglobin 31.7 PG (27.0-31.0) H 31.5 PG (27.0-31.0) H Mean Corpuscular Hemoglobin Concent 32.1 G/DL (32.0-36.0) 32.0 G/DL (32.0-36.0) Red Cell Distribution Width 16.2 % (11.6-14.8) H 17.3 % (11.6-14.8) H Platelet Count 139 K/UL (150-450) L 125 K/UL (150-450) L Mean Platelet Volume 6.3 FL (6.5-10.1) L 6.0 FL (6.5-10.1) L Neutrophils (%) (Auto) 65.1 % (45.0-75.0) % (45.0-75.0) Lymphocytes (%) (Auto) 23.5 % (20.0-45.0) % (20.0-45.0) Monocytes (%) (Auto) 7.8 % (1.0-10.0) % (1.0-10.0) Eosinophils (%) (Auto) 2.6 % (0.0-3.0) % (0.0-3.0) Basophils (%) (Auto) 1.0 % (0.0-2.0) % (0.0-2.0) Sodium Level 139 MMOL/L (136-145) 137 MMOL/L (136-145) Potassium Level 5.9 MMOL/L (3.5-5.1) H 6.5 MMOL/L (3.5-5.1) *H Chloride Level 105 MMOL/L (98-107) 103 MMOL/L (98-107) Carbon Dioxide Level 14 MMOL/L (21-32) L 16 MMOL/L (21-32) L Anion Gap 21 mmol/L (5-15) H 18 mmol/L (5-15) H Blood Urea Nitrogen 123 mg/dL (7-18) H 134 mg/dL (7-18) H Creatinine 18.0 MG/DL (0.55-1.30) H 18.9 MG/DL (0.55-1.30) H Estimat Glomerular Filtration Rate 2.7 mL/min (>60) 2.5 mL/min (>60) Glucose Level 68 MG/DL (74-106) L 50 MG/DL (74-106) L Calcium Level 9.4 MG/DL (8.5-10.1) 9.4 MG/DL (8.5-10.1) Troponin I 0.011 ng/mL (0.000-0.056) Differential Total Cells Counted 100 Neutrophils % (Manual) 76 % (45-75) H Lymphocytes % (Manual) 19 % (20-45) L Monocytes % (Manual) 4 % (1-10) Eosinophils % (Manual) 0 % (0-3) Basophils % (Manual) 0 % (0-2) Band Neutrophils 1 % (0-8) Platelet Estimate Decreased L Platelet Morphology Normal Hypochromasia 1+ Anisocytosis 1+ [place] Cells 1+ Acanthocytes 1+ FilsoOsmany seth MD Feb 13, 2019 08:44
[2019-02-13] MEDS ORDERED: Lisinopril 10mg tab ORAL SCH (09:00)
[2019-02-13] MEDS: Lomotil 2.5mg tab ORAL SCH (09:08)
[2019-02-13] MEDS: Nateglinide 60mg tab ORAL SCH ×2 (09:09→13:11)
[2019-02-13] MEDS: Bisacodyl EC 5mg tab ORAL SCH (09:09)
[2019-02-13] MEDS: Nephrovite tab (Rena-Vite) ORAL SCH (09:10)
[2019-02-13] MEDS: Aspirin Baby 81mg ORAL SCH (09:10)
[2019-02-13] MEDS: Docusate 100mg cap ORAL SCH (09:11)
--- NOTE | 2019-02-13 11:21 | General Progress Note ---
Assessment/Plan Status: stable Assessment/Plan: S: I am ok O: limited verbal communication. Hard hearing. Seems comfortable, denies any CP or SOB PHYSICAL EXAMINATION:HEAD AND NECK: Atraumatic and normocephalic. CHEST: Clear to auscultation.HEART: S1, S2. Regular rate and rhythm. ABDOMEN: Soft. No organomegaly.MUSCULOSKELETAL: Positive for the AV shunts placed on the left upper extremity. Otherwise, unremarkable.NEUROLOGY: Awake, alert, and oriented x3. IMAGING: None. LABORATORY DATA: Labs dated February 11 reviewed ASSESSMENT AND PLAN: 1. Hypertensive emergency. 2. Acute anemia based on the outside hemoglobin number of below 7.7. 3. End-stage renal disease, on hemodialysis. 4. Hypertension. 5. Diabetes. 6. GI and DVT prophylaxis. 7. Refusal of HD PLAN OF CARE: HD management per Dr Tamayo Will optimize BP medication Refusal of HD at this time Subjective Allergies: Coded Allergies: No Known Allergies (Unverified , 02/08/19) Objective Last 24 Hour Vital Signs Date Time Temp Pulse Resp B/P (MAP) Pulse Ox O2 Delivery O2 Flow Rate FiO2 02/13/19 08:45 Room Air 02/13/19 08:00 98.3 63 19 150/56 (87) 97 02/13/19 06:03 119/66 02/13/19 04:00 96.7 60 18 119/66 (83) 96 02/13/19 00:00 96.8 52 16 131/45 (73) 97 02/12/19 22:26 156/50 02/12/19 21:00 Room Air 02/12/19 20:00 97.1 61 14 156/50 (85) 93 02/12/19 16:00 98.5 68 18 120/46 (70) 96 02/12/19 14:00 105/41 02/12/19 12:00 98.1 64 18 114/43 (66) 95 Intake and Output 02/12/19 02/13/19 19:00 07:00 Intake Total 880 ml Balance 880 ml Intake Oral 880 ml # Voids 5 3 # Bowel Movements 1 Laboratory Tests 02/13/19 05:31: White Blood Count 4.5L, Red Blood Count 2.50L, Hemoglobin 7.9L, Hematocrit 24.6L , Mean Corpuscular Volume 99, Mean Corpuscular Hemoglobin 31.5H, Mean Corpuscular Hemoglobin Concent 32.0, Red Cell Distribution Width 17.3H, Platelet Count 125L, Mean Platelet Volume 6.0L, Neutrophils (%) (Auto) , Lymphocytes (%) (Auto) , Monocytes (%) (Auto) , Eosinophils (%) (Auto) , Basophils (%) (Auto) , Differential Total Cells Counted 100, Neutrophils % ( Manual) 76H, Lymphocytes % (Manual) 19L, Monocytes % (Manual) 4, Eosinophils % ( Manual) 0, Basophils % (Manual) 0, Band Neutrophils 1, Platelet Estimate DecreasedL, Platelet Morphology Normal, Hypochromasia 1+, Anisocytosis 1+, [place] Cells 1+, Acanthocytes 1+, Sodium Level 137, Potassium Level 6.5*H, Chloride Level 103, Carbon Dioxide Level 16L, Anion Gap 18H, Blood Urea Nitrogen 134H, Creatinine 18.9H, Estimat Glomerular Filtration Rate 2.5, Glucose Level 50L, Calcium Level 9.4 Height (Feet): 5 Height (Inches): 8.00 Weight (Pounds): 192 Peter Parker MD Feb 13, 2019 11:21
--- NOTE | 2019-02-13 11:58 | NUR ---
DISCHARGE PLANNING DISCHARGE ORDER NOTED [facility] has been [facility] [address] [place] [address] Bed:20-B Skilled for Nurse to Nurse report [facility] ETA for transportation: 13:15
[2019-02-13 12:00] VITALS: BP 156/60
--- NOTE | 2019-02-13 12:48 | NUR ---
NURSE NOTES: Patient refusing hemodialysis. RN educates patient of risks, but patient adamant he want hemodialysis done at usual center. Potassium today 6.5, Dr. Parker notified. New order received.
[2019-02-13] MEDS ORDERED: Sodium Polystyrene Sulfonate 15gm Powder ORAL SCH (13:00)
[2019-02-13 13:14] VITALS: BP 147/58
--- NOTE | 2019-02-13 14:10 | Hematology/Onc Progress Note ---
Assessment/Plan Assessment/Plan # Anemia of chronic disease due to underlying chronic medical issues, multifactorial, CKD --> Anemia workup has been ordered, rule out gi bleed --> No evidence of hemolysis is noted, peripheral smear has been reviewed. --> Hgb goal >7. Transfuse prn. --> Iron not indicated unless h/h lower, however is okay for EPO as ferritin is >900 --> Medications have been reviewed --> low threshold for gi evaluation in case has occult + --> bone marrow biopsy is not indicated given the other more likely causes --> hgb trend 7.8-->8.1 # Anemia of kidney disease --> currently on epo and iron --> hgb goal is >7 # Pancreatic head mass, 1.9 x 2.1 structure in the pancreatic head which may represent pancreatic head mass. Follow-up with CT or MRI pancreas protocol is recommended. --> have ordered a ct scan, can be done as outpatient --> ideally would recommend iv contrast but must be removed with contrast --> gi eval as outpatient as well # Leukopenia -- multiple etiologies could be related to underlying liver disease , medication-induced, infection versus viral syndrome --> peripheral smear has been ordered and does not show significant abnormalities --> Medications have been reviewed --> Continue to monitor for improvement, trend cbc --> Hiv is negative, hep negative --> Us abd reviewed and sows no cirrhosis/hsm --> reverse isolation if ANC is <2000 --> Give neupogen if ANC <1000 # ESRD has been refusing hd --> renal aware and discussing with pt The timing of this note does not necessarily reflect the time of the patient was seen. Greatly appreciate consultation! Subjective HEENT: Denies: no symptoms, eye pain, blurred vision, tearing, double vision, ear pain, ear discharge, nose pain, nose congestion, throat pain, throat swelling, mouth pain, mouth swelling, other Cardiovascular: Denies: no symptoms, chest pain, edema, irregular heart rate, lightheadedness, palpitations, syncope, other Respiratory: Denies: no symptoms, cough, shortness of breath, SOB with excertion, SOB at rest, sputum, wheezing, other Gastrointestinal/Abdominal: Denies: no symptoms, abdomen distended, abdominal pain, black stools, tarry stools, blood in stool, constipated, diarrhea, difficulty swallowing, nausea, poor appetite, poor fluid intake, rectal bleeding , vomiting, other Genitourinary: Denies: no symptoms, burning, discharge, frequency, flank pain, hematuria, incontinence, pain, urgency, other Neurologic/Psychiatric: Denies: no symptoms, anxiety, depressed, emotional problems, headache, numbness, paresthesia, pre-existing deficit, seizure, tingling, tremors, weakness, other Endocrine: Denies: no symptoms, excessive sweating, flushing, intolerance to cold, intolerance to heat, increased hunger, increased thirst, increased urine, unexplained weight gain, unexplained weight loss, other Allergies: Coded Allergies: No Known Allergies (Unverified , 02/08/19) Subjective 02/11:no events to report, no f/c, no night sweats, needs hd, psych eval 02/12: still refuisng hd, labs have been reviewed, no f/c 02/13: no events, refusing hd, on epo, to continue Objective Objective Current Medications Medications (Trade) Dose Ordered Sig/Anne Route PRN Reason Start Time Stop Time Status Last Admin Dose Admin Acetaminophen/ Hydrocodone Bitart ([place]mlin 5/325) 1 tab Q6H PRN ORAL pain 02/08/19 21:30 02/15/19 21:29 Aspirin (ASA) 81 mg DAILY ORAL 02/09/19 09:00 03/11/19 08:59 02/13/19 09:10 Atorvastatin Calcium (Lipitor) 10 mg BEDTIME ORAL 02/09/19 21:00 03/11/19 20:59 02/12/19 22:26 Barium Sulfate (Readi-Cat 2) 450 ml NOW PRN ORAL Radiology Procedure 02/13/19 08:15 02/15/19 08:13 Bisacodyl (Dulcolax) 5 mg DAILY ORAL 02/09/19 09:00 03/11/19 08:59 02/13/19 09:09 Calcium Acetate (Phoslo) 667 mg TIAC ORAL 02/09/19 06:30 03/11/19 06:29 02/13/19 13:11 Clonidine HCl (Catapres Tab) 0.1 mg Q2H PRN ORAL FOR SBP>170 02/11/19 09:45 03/13/19 09:44 Dextrose (Dextrose 50%) 25 ml Q30M PRN IV Hypoglycemia 02/08/19 20:30 03/10/19 20:29 Dextrose (Dextrose 50%) 50 ml Q30M PRN IV Hypoglycemia 02/08/19 20:30 03/10/19 20:29 02/13/19 06:04 Diphenoxylate HCl/ Atropine (Lomotil) 2.5 mg DAILY ORAL 02/09/19 09:00 03/11/19 08:59 02/13/19 09:08 Docusate Sodium (Colace) 100 mg DAILY ORAL 02/09/19 09:00 03/11/19 08:59 02/13/19 09:11 Epoetin Serafin (Epoetin Serafin(ESRD on dialysis)) 8,000 unit SUBQ 02/08/19 22:00 03/10/19 21:59 02/08/19 22:32 Folic Acid (Folate) 1 mg DAILY ORAL 02/09/19 09:00 03/11/19 08:59 02/13/19 09:10 Gabapentin (Neurontin) 100 mg DAILY ORAL 02/09/19 09:00 03/11/19 08:59 02/13/19 09:09 Hydralazine HCl (Apresoline) 100 mg Q8HR ORAL 02/08/19 22:00 03/10/19 21:59 02/13/19 13:14 Insulin Aspart (NovoLOG) BEFORE MEALS AND HS SUBQ 02/08/19 22:00 03/10/19 21:59 Nateglinide (Starlix) 60 mg THREE TIMES A DAY ORAL 02/09/19 09:00 03/11/19 08:59 02/13/19 13:11 Pantoprazole (Protonix) 40 mg DAILY ORAL 02/09/19 09:00 03/11/19 08:59 02/13/19 09:11 Sevelamer Carbonate (Renvela) 800 mg THREE TIMES A DAY ORAL 02/09/19 09:00 03/11/19 08:59 02/13/19 13:11 Sodium Polystyrene Sulfonate (Kayexalate) 30 gm ONCE ORAL 02/13/19 13:00 02/13/19 14:30 02/13/19 13:11 Vitamin B Complex/ Vit C/Folic Acid (Nephrovite) 1 tab DAILY ORAL 02/09/19 09:00 03/11/19 08:59 02/13/19 09:10 Last 24 Hour Vital Signs Date Time Temp Pulse Resp B/P (MAP) Pulse Ox O2 Delivery O2 Flow Rate FiO2 02/13/19 13:14 147/58 02/13/19 12:00 98.6 59 18 156/60 (92) 95 02/13/19 08:45 Room Air 02/13/19 08:00 98.3 63 19 150/56 (87) 97 02/13/19 06:03 119/66 02/13/19 04:00 96.7 60 18 119/66 (83) 96 02/13/19 00:00 96.8 52 16 131/45 (73) 97 02/12/19 22:26 156/50 02/12/19 21:00 Room Air 02/12/19 20:00 97.1 61 14 156/50 (85) 93 02/12/19 16:00 98.5 68 18 120/46 (70) 96 02/12/19 14:00 105/41 02/12/19 12:00 98.1 64 18 114/43 (66) 95 02/12/19 09:45 126/54 02/12/19 09:44 66 126/54 02/12/19 09:44 66 126/54 02/12/19 08:30 Room Air 02/12/19 08:00 98.8 66 19 126/54 (78) 97 02/12/19 05:47 130/50 02/12/19 04:00 97.9 63 20 130/50 (76) 95 02/12/19 00:00 97.2 55 20 148/57 (87) 98 02/11/19 21:32 130/50 02/11/19 21:00 Room Air 02/11/19 20:00 97.2 55 20 130/50 (76) 97 02/11/19 16:00 97.7 54 18 135/51 (79) 96 02/11/19 15:13 148/66 Intake and Output 02/12/19 02/13/19 19:00 07:00 Intake Total 880 ml Balance 880 ml Intake Oral 880 ml # Voids 5 3 # Bowel Movements 1 Labs Test 02/11/19 05:40 02/11/19 11:15 02/11/19 11:30 02/11/19 15:05 White Blood Count 4.3 K/UL (4.8-10.8) 4.5 K/UL (4.8-10.8) Red Blood Count 2.53 M/UL (4.70-6.10) 2.51 M/UL (4.70-6.10) Hemoglobin 7.8 G/DL (14.2-18.0) 7.8 G/DL (14.2-18.0) Hematocrit 25.2 % (42.0-52.0) 23.8 % (42.0-52.0) Mean Corpuscular Volume 99 FL (80-99) 95 FL (80-99) Mean Corpuscular Hemoglobin 31.0 PG (27.0-31.0) 31.3 PG (27.0-31.0) Mean Corpuscular Hemoglobin Concent 31.1 G/DL (32.0-36.0) 33.0 G/DL (32.0-36.0) Red Cell Distribution Width 16.1 % (11.6-14.8) 15.3 % (11.6-14.8) Platelet Count 138 K/UL (150-450) 126 K/UL (150-450) Mean Platelet Volume 6.5 FL (6.5-10.1) 5.9 FL (6.5-10.1) Neutrophils (%) (Auto) % (45.0-75.0) % (45.0-75.0) Lymphocytes (%) (Auto) % (20.0-45.0) % (20.0-45.0) Monocytes (%) (Auto) % (1.0-10.0) % (1.0-10.0) Eosinophils (%) (Auto) % (0.0-3.0) % (0.0-3.0) Basophils (%) (Auto) % (0.0-2.0) % (0.0-2.0) Differential Total Cells Counted 100 100 Neutrophils % (Manual) 68 % (45-75) 74 % (45-75) Lymphocytes % (Manual) 23 % (20-45) 15 % (20-45) Monocytes % (Manual) 5 % (1-10) 8 % (1-10) Eosinophils % (Manual) 4 % (0-3) 2 % (0-3) Basophils % (Manual) 0 % (0-2) 1 % (0-2) Band Neutrophils 0 % (0-8) 0 % (0-8) Platelet Estimate Decreased Decreased Platelet Morphology Normal Normal Hypochromasia 3+ 3+ Anisocytosis 1+ 1+ Sodium Level 139 MMOL/L (136-145) Potassium Level 5.7 MMOL/L (3.5-5.1) Chloride Level 104 MMOL/L (98-107) Carbon Dioxide Level 18 MMOL/L (21-32) Anion Gap 17 mmol/L (5-15) Blood Urea Nitrogen 111 mg/dL (7-18) Creatinine 16.3 MG/DL (0.55-1.30) Estimat Glomerular Filtration Rate 3.0 mL/min (>60) Glucose Level 76 MG/DL (74-106) Calcium Level 9.5 MG/DL (8.5-10.1) Total Bilirubin 0.5 MG/DL (0.2-1.0) Aspartate Amino Transf (AST/SGOT) 5 U/L (15-37) Alanine Aminotransferase (ALT/SGPT) 14 U/L (12-78) Alkaline Phosphatase 108 U/L (46-116) Total Protein 6.9 G/DL (6.4-8.2) Albumin 3.4 G/DL (3.4-5.0) Globulin 3.5 g/dL Albumin/Globulin Ratio 1.0 (1.0-2.7) Hepatitis A IgM Antibody Negative (Negative) Hepatitis B Surface Antigen Negative (Negative) Hepatitis B Core IgM Antibody Negative (Negative) Hepatitis C Antibody <0.1 s/co ratio Troponin I 0.022 ng/mL (0.000-0.056) Stool Occult Blood Negative (NEGATIVE) Test 02/11/19 18:43 02/12/19 09:35 02/13/19 05:31 Troponin I 0.030 ng/mL (0.000-0.056) 0.011 ng/mL (0.000-0.056) White Blood Count 4.2 K/UL (4.8-10.8) 4.5 K/UL (4.8-10.8) Red Blood Count 2.54 M/UL (4.70-6.10) 2.50 M/UL (4.70-6.10) Hemoglobin 8.1 G/DL (14.2-18.0) 7.9 G/DL (14.2-18.0) Hematocrit 25.1 % (42.0-52.0) 24.6 % (42.0-52.0) Mean Corpuscular Volume 99 FL (80-99) 99 FL (80-99) Mean Corpuscular Hemoglobin 31.7 PG (27.0-31.0) 31.5 PG (27.0-31.0) Mean Corpuscular Hemoglobin Concent 32.1 G/DL (32.0-36.0) 32.0 G/DL (32.0-36.0) Red Cell Distribution Width 16.2 % (11.6-14.8) 17.3 % (11.6-14.8) Platelet Count 139 K/UL (150-450) 125 K/UL (150-450) Mean Platelet Volume 6.3 FL (6.5-10.1) 6.0 FL (6.5-10.1) Neutrophils (%) (Auto) 65.1 % (45.0-75.0) % (45.0-75.0) Lymphocytes (%) (Auto) 23.5 % (20.0-45.0) % (20.0-45.0) Monocytes (%) (Auto) 7.8 % (1.0-10.0) % (1.0-10.0) Eosinophils (%) (Auto) 2.6 % (0.0-3.0) % (0.0-3.0) Basophils (%) (Auto) 1.0 % (0.0-2.0) % (0.0-2.0) Sodium Level 139 MMOL/L (136-145) 137 MMOL/L (136-145) Potassium Level 5.9 MMOL/L (3.5-5.1) 6.5 MMOL/L (3.5-5.1) Chloride Level 105 MMOL/L (98-107) 103 MMOL/L (98-107) Carbon Dioxide Level 14 MMOL/L (21-32) 16 MMOL/L (21-32) Anion Gap 21 mmol/L (5-15) 18 mmol/L (5-15) Blood Urea Nitrogen 123 mg/dL (7-18) 134 mg/dL (7-18) Creatinine 18.0 MG/DL (0.55-1.30) 18.9 MG/DL (0.55-1.30) Estimat Glomerular Filtration Rate 2.7 mL/min (>60) 2.5 mL/min (>60) Glucose Level 68 MG/DL (74-106) 50 MG/DL (74-106) Calcium Level 9.4 MG/DL (8.5-10.1) 9.4 MG/DL (8.5-10.1) Differential Total Cells Counted 100 Neutrophils % (Manual) 76 % (45-75) Lymphocytes % (Manual) 19 % (20-45) Monocytes % (Manual) 4 % (1-10) Eosinophils % (Manual) 0 % (0-3) Basophils % (Manual) 0 % (0-2) Band Neutrophils 1 % (0-8) Platelet Estimate Decreased Platelet Morphology Normal Hypochromasia 1+ Anisocytosis 1+ [place] Cells 1+ Acanthocytes 1+ Height (Feet): 5 Height (Inches): 8.00 Weight (Pounds): 192 Objective Physical Exam General Appearance: A+O x3, NAD HEENT: normocephalic, atraumatic Neck: non-tender, normal alignment Respiratory/Chest: chest wall non-tender, lungs clear Cardiovascular/Chest: normal peripheral pulses, normal rate Abdomen: normal bowel sounds, non tender Extremities: normal range of motion Edouard Donald MD Feb 13, 2019 14:10
--- NOTE | 2019-02-13 15:11 | NUR ---
NURSE NOTES: Patient discharged to [facility] via ambulance. IV removed. Discharge packet given to ambulance personnel. Report given to Natalie at facility. Belongings reviewed and accounted for. Patient stable upon discharge.
--- NOTE | 2019-02-14 00:45 | Consultation ---
DATE OF CONSULTATION: 02/13/2019 CONSULTING PHYSICIAN: Javier Patino M.D. HISTORY OF PRESENT ILLNESS: The patient is a 63-year-old male with a history of multiple medical comorbidities, who has been admitted to the hospital due to medical condition. The patient is having end-stage renal failure, hypertension, and hyperlipidemia, on dialysis. The patient has been refusing dialysis. The patient is [place]ian speaking. He is able to understand, process, and communicate information given to him. He was able to answer the questions appropriately. He understand the risks versus benefits of hemodialysis. Stated that he has been sick and does not want to do hemodialysis. PAST PSYCHIATRIC HISTORY: He denies any psychiatric history. PAST MEDICAL HISTORY: As above. ALLERGIES: No known drug allergies. SUBSTANCE ABUSE HISTORY: No known history of illicit drug use or alcohol. MENTAL STATUS EXAMINATION: The patient is alert and oriented times to self, place, and situation. Mood is neutral. Affect is full range, congruent with mood. Thought process is concrete. Thought content, no suicidal or homicidal ideation. Cognition is intact. Insight and judgment is poor. ASSESSMENT: AXIS I: Anxiety disorder. Depressive disorder. AXIS II: Deferred. AXIS III: As above. AXIS IV: Low. AXIS V: 60. PLAN: 1. The patient has capacity to make decision. 2. The patient is reluctant to take any medication. 3. Provide the patient with reality orientation and supportive therapy. Javier Patino M.D. DR: RJ JOB#: [id number] CC:
--- NOTE | 2019-02-14 08:12 | Discharge Summary ---
Discharge Summary Discharge Summary _ DATE OF ADMISSION: 02/08/2019 DATE OF DISCHARGE: 02/13/2019 DISCHARGED BY: Dr Parker REASON FOR ADMISSION: 63 years old male with past medical history of end-stage renal disease, on hemodialysis, basal cell carcinoma of skin left upper extremity including shoulder, hyperlipidemia, diabetes mellitus, hypertension, presented to emergency department with generalized weakness. He reported no chest pain or shortness of breath. He missed his hemodialysis. Upon evaluation blood pressure was severely elevated 208/74. Laboratory work-up revealed no leukocytosis hemoglobin 8.9 hematocrit 27.4. Platelet count 138. Stable electrolytes. BUN 78, creatinine 12.8. Glucose 258. Stable LFT. Troponin negative Patient subsequently admitted for further management. CONSULTANTS: brake drum lathe operator Dr. Araujo observer gravity prospecting Dr. Covington sequins winder/oncologist Dr. Donald psychiatrist [facility]SE: Patient admitted to medical surgical floor. [address] Mate followed. Patient declined hemodialysis. Repeated attempts were made to persuade the patient to have hemodialysis. Patient continued to refuse hemodialysis. Upon discharge BUN 134, creatinine 18.9. Hyperkalemia with potassium of 6.5 was treated. Echocardiogram revealed preserved ejection fraction of 55 to 60% with mild left ventricular hypertrophy. No evidence of wall motion abnormality. Right ventricular systolic pressure of 74 consistent with severe pulmonary hypertension. Mild to moderate mitral regurgitation. Grade 2 elevated left atrial pressure. Serial troponin were negative. EKG revealed no acute ischemic changes. Blood pressure was managed with Procardia, lisinopril , hydralazine. Beta-freddy was stopped due to mild bradycardia with heart rate of 50s. Along the road, patient had hyperkalemia. Lisinopril was discontinued . Cardura was added to routine antihypertensive regimen along with Clonidine on as needed basis . Prior to discharge blood pressure 147/58. Hemoglobin and hematocrit were closely monitored. According to sequins winder, patient had anemia of chronic disease due to underlying chronic medical issues. Anemia work-up was reviewed. Iron was not indicated at this time , but patient started on Epogen. Hemoglobin and hematocrit were closely monitored with goal to keep hemoglobin above 7. Prior to discharge hemoglobin 7.9, hematocrit 24.6. Abdominal ultrasound demonstrated 1.9 x 2.1 structure in the pancreatic head, which may represent pancreatic head mass. Follow-up with CT or MRI pancreas protocol was recommended. Abdominal ultrasound also revealed echogenic kidneys, consistent with renal parenchymal disease. Bilateral nephrolithiasis without hydronephrosis. Pulsatile portal venous flow , which may be associated with right heart dysfunction or underlying structural liver dysfunction. Small volume of ascites and bilateral pleural effusion. Oncologist recommended outpatient CT or MRI pancreas. GI evaluation as outpatient was also recommended by oncologist. Psychiatrist seen and evaluated patient. Per psychiatrist, patient did have capacity to make decision. \ Patient was reluctant to start any medication. Reality orientation supportive therapy provided. Patient was discharged to [facility] facility for continuation of care. Patient was strongly advised to comply with outpatient hemodialysis schedule. FINAL DIAGNOSES: Hypertensive emergency End-stage renal disease , on hemodialysis Noncompliance/refusal of hemodialysis Diabetes mellitus Symptomatic anemia Hyperkalemia Hyperlipidemia Anemia of chronic disease Pancreatic head mass Anxiety disorder Depressive disorder DISCHARGE MEDICATIONS: See Medication Reconciliation list. DISCHARGE INSTRUCTIONS: Patient was discharged to the [facility] facility. Follow up with medical doctor at the facility. I have been assigned to dictate discharge summary for this account. I was not involved in the patient's management. Maricarmen Ibarra NP Feb 14, 2019 08:12
== END 2019-02-13 15:06 | DRG 304 ==
LOC: EDBD 14:13 → EMR 14:45 → 4E 16:02 → EDBEDREQ 16:26
DX: I16.1 Hypertensive emergency (principal); N18.6 End stage renal disease; I12.0 Hypertensive chronic kidney disease with stage 5 chronic kidney disease or end stage renal disease; Z99.2 Dependence on renal dialysis; D63.1 Anemia in chronic kidney disease; E11.9 Type 2 diabetes mellitus without complications; K86.9 Disease of pancreas, unspecified; E78.5 Hyperlipidemia, unspecified; K86.89 Other specified diseases of pancreas; Z91.15 Patient's noncompliance with renal dialysis; E87.5 Hyperkalemia; F41.9 Anxiety disorder, unspecified; F32.9 Major depressive disorder, single episode, unspecified
CPT/HCPCS: 36415; 76700; 80048; 80053; 82270; 82607; 82728; 82746; 82962; 83540; 83550; 84443; 84484; 85007; 85025; 85060; 85610; 85730; 86703; 86705; 86706; 86709; 86803; 86850; 86900; 86901; 86920; 87081; 87340; 93005; 93306; 96374; 96375; 99285; J1815